=== PATIENT | male | born 1960 | race Hispanic/Latino ===

== ENCOUNTER 2018-03-14 18:22 | Observation (INO) | payer SELFPAY ==
[2018-03-14] MEDS ORDERED: FENTANYL CITR 100 MCG/2 ML ONE (19:17)
[2018-03-14] MEDS ORDERED: COLCHICINE 0.6 MG TAB ONE (19:18)
[2018-03-14] MEDS ORDERED: KETOROLAC 30 MG/ML INJ ONE (19:18)
[2018-03-14] MEDS ORDERED: ONDANSETRON 4 MG/2 ML VIAL ONE (19:18)
--- NOTE | 2018-03-14 19:35 | RAD REPORT ---
EXAM DESCRIPTION: RAD - Knee Left 3 View - 03/14/2018 7:00 pm CLINICAL HISTORY: Left knee pain FINDINGS: No fracture or dislocation is seen. The bones are osteoporotic. A moderate joint effusion is present. Vague calcification is suspected along the lateral joint line. Mild medial joint space narrowing is s een
[2018-03-14 20:00] LABS: Albumin 4.1 g/dL (3.4-5.0); Bilirubin Total 0.7 mg/dL (0.2-1.0); Protein, Total 7.9 g/dL (6.4-8.2); Uric Acid 10.7 mg/dL (3.5-7.2)
[2018-03-14 20:02] LABS: Absolute Lymphocytes (CBC) 2.4 K/uL (0.7-4.9); Absolute Monocytes 0.9 K/uL (0.1-1.3); Absolute Neutrophil 5.9 K/uL (1.8-8.0); Eosinophils % 15.4 % (0-4.4); Hematocrit 40.9 % (39.6-49.0); Lymphocytes % 21.9 % (15.3-44.8); MCH 30.5 pg (27.0-35.0); MCV 88.2 fL (80-100); MPV 9.9 fL (7.6-11.3); Monocytes % 8.5 % (3.3-12.3); RBC Red Blood Cell Count 4.64 M/uL (4.33-5.43)
--- NOTE | 2018-03-14 20:02 | RAD REPORT ---
EXAM DESCRIPTION: USEXTREMITY VENOUS UNI LTD03/14/2018 7:53 pm CLINICAL HISTORY: Left leg pain COMPARISON: Extremity Venous Uni Ltd dated 05/10/2016 FINDINGS: Left common femoral, superficial femoral, popliteal and posterior tibial veins are compre ssible and demonstrate augmentation. Doppler demonstrates good flow. IMPRESSION: No evidence of deep venous thrombosis involving the left lower extremity.
[2018-03-14 20:03] LABS: Potassium 2.7 mmol/L (3.5-5.1)
[2018-03-14] MEDS ORDERED: POTASSIUM 25 MEQ EFFERV TAB ONE (20:42)
[2018-03-14] MEDS ORDERED: NA CHLORIDE 0.9% 500 ML ONE (20:42)
[2018-03-14] MEDS ORDERED: KCL 20 MEQ/100 mL IVPB 20 MEQ/100 ML BAG IV ONE ×2 (20:43→23:28)
[2018-03-14] MEDS ORDERED: HYDROCODONE/APAP 7.5/325 MG TAB ONE (23:11)
[2018-03-14] MEDS ORDERED: ACETAMINOPHEN 500 MG TAB PO PRN (23:31)
[2018-03-14] MEDS ORDERED: MORPHINE 2 MG/ML SYR IV PRN (23:31)
[2018-03-14] MEDS ORDERED: ONDANSETRON 4 MG/2 ML VIAL IV PRN (23:31)
[2018-03-14] MEDS ORDERED: POTASSIUM 25 MEQ EFFERV TAB PO ONE (23:33)
[2018-03-14] MEDS ORDERED: GLUCAGON 1 MG/VIAL IM PRN (23:35)
[2018-03-14] MEDS ORDERED: D50W 25 GM/50 ML SYRINGE IV PRN (23:35)
--- NOTE | 2018-03-14 23:43 | ER ---
Nurse's Notes [facility] Name: Ramón Avilez Age: 57 yrs Sex: Male : 1960 Arrival Date: 03/14/2018 Time: 18:25 Bed 16 Private MD: Diagnosis: Hypokalemia;Abnormal electrocardiogram [ECG] [EKG];Pain in left knee Presentation: 03/14 18:28 Presenting complaint: Patient states: Left knee pain for the past few years. It has aj1 been slowly getting worse. He was taking tramadol for the pain, but now he is out of it. Patient states he has had X-Rays of the knee, and was told that it was gout. Transition of care: patient was not received from another setting of care. Onset of symptoms was 2015. Risk Assessment: Do you want to hurt yourself or someone else? Patient reports no desire to harm self or others. Initial Sepsis Screen: Does the patient meet any 2 criteria? No. Patient's initial sepsis screen is negative. Does the patient have a suspected source of infection? No. Patient's initial sepsis screen is negative. Care prior to arrival: None. 18:28 Method Of Arrival: Ambulatory aj1 18:28 Acuity: MENG 4 aj1 Triage Assessment: 18:31 General: Appears in no apparent distress. comfortable, Behavior is calm, cooperative, aj1 appropriate for age. Pain: Complains of pain in left knee Pain currently is 10 out of 10 on a pain scale. Neuro: Level of Consciousness is awake, alert, obeys commands. Cardiovascular: Patient's skin is warm and dry. Respiratory: Airway is patent Respiratory effort is even, unlabored, Respiratory pattern is regular, symmetrical. Historical: - Allergies: 18:31 No Known Allergies; aj1 - Home Meds: 18:31 blood pressure medication [Active]; diabetes medication [Active]; gout medication aj1 [Active]; - PMHx: 18:31 Gout; High Cholesterol; Hypertension; Diabetes - NIDDM; aj1 - Immunization history:: Flu vaccine is not up to date. - Social history:: Smoking status: Patient/guardian denies using tobacco. - Ebola Screening: : Patient denies travel to an Ebola-affected area in the 21 days before illness onset. - Family history:: not pertinent. Screenin:28 Abuse screen: Denies threats or abuse. Denies injuries from another. Nutritional iw screening: No deficits noted. Tuberculosis screening: No symptoms or risk factors identified. Fall Risk None identified. Assessment: 19:25 General: Appears in no apparent distress. comfortable, Behavior is calm, cooperative, iw appropriate for age. Pain: Complains of pain in left leg. Neuro: Level of Consciousness is awake, alert, obeys commands, Oriented to person, place, time, situation, Appropriate for age Moves all extremities. Full function Speech is normal, Facial symmetry appears normal. Cardiovascular: Capillary refill < 3 seconds Patient's skin is warm and dry. Respiratory: Airway is patent Respiratory effort is even, unlabored, Respiratory pattern is regular, symmetrical. GI: Abdomen is non-distended. : No signs and/or symptoms were reported regarding the genitourinary system. EENT: No signs and/or symptoms were reported regarding the EENT system. Derm: Skin is intact, Skin is pink, warm \T\ dry. normal, Skin temperature is warm. Musculoskeletal: Amputation of left knee. 20:00 Reassessment: Patient appears in no apparent distress at this time. Patient and/or iw family updated on plan of care and expected duration. Pain level reassessed. Patient is alert, oriented x 3, equal unlabored respirations, skin warm/dry/pink. Waiting to give second Colcryst pill. 21:17 Reassessment: Patient appears in no apparent distress at this time. Patient and/or ao family updated on plan of care and expected duration. Pain level reassessed. Patient is alert, oriented x 3, equal unlabored respirations, skin warm/dry/pink. Patient getting potassium and will be discharge after potassium is rechecked. 22:38 Reassessment: Patient appears in no apparent distress at this time. Patient and/or ao family updated on plan of care and expected duration. Pain level reassessed. Patient is alert, oriented x 3, equal unlabored respirations, skin warm/dry/pink. Waiting on potassium to be complete and recheck. 23:35 Reassessment: Patient appears in no apparent distress at this time. Patient and/or ao family updated on plan of care and expected duration. Pain level reassessed. Patient is alert, oriented x 3, equal unlabored respirations, skin warm/dry/pink. Patient to stay in the hospital per ANDERSON Rudd. 03/15 00:33 Reassessment: Patient appears in no apparent distress at this time. Patient and/or ao family updated on plan of care and expected duration. Pain level reassessed. Patient is alert, oriented x 3, equal unlabored respirations, skin warm/dry/pink. Patient to stay in the hospital. patient agree with the POC. waiting on hospital room assignment. 01:01 Reassessment: Report given to DAVID Alcaraz. Patient to be taken to his room. ao Vital Signs: 03/14 18:31 BP 173 / 102; Pulse 85; Resp 18; Temp 98.5; Pulse Ox 100% on R/A; Weight 83.91 kg (R); aj1 Height 5 ft. 5 in. (165.10 cm) (R); Pain 10/10; 19:29 BP 170 / 91; Pulse 80; Resp 16; Pulse Ox 98% ; Pain 8/10; iw 21:17 BP 162 / 82; Pulse 82; Resp 16; Pulse Ox 100% ; ao 22:38 BP 140 / 93; Pulse 61; Resp 17; Pulse Ox 97% ; Pain 0/10; ao 23:35 BP 168 / 98; Pulse 60; Resp 14; Pulse Ox 98% ; ao 09 00:33 BP 143 / 103; Pulse 74; Resp 16; Pulse Ox 96% on R/A; Pain 0/10; ao 01:01 BP 162 / 92; Pulse 67; Resp 12; Pulse Ox 97% ; Pain 0/10; ao 03/14 18:31 Body Mass Index 30.79 (83.91 kg, 165.10 cm) [facility] ED Course: 03/14 18:25 Patient arrived in ED. mr 18:30 Triage completed. aj1 18:31 Arm band placed on Patient placed in an exam room. aj1 18:33 Jp Wilks MD is Attending Physician. [facility] 18:49 Brigitte Shearer, RN is Primary Nurse. iw 18:59 X-ray completed. Portable x-ray completed in exam room. 1 19:00 Knee Left 3 View XRAY In Process Unspecified. EDMS 19:01 No provider procedures requiring assistance completed. Initial lab(s) drawn, by ma, iw sent to lab. Inserted saline lock: 20 gauge in left hand, using aseptic technique. Blood collected. 19:28 Primary Nurse role handed off by Brigitte Shearer RN eb 19:29 Patient has correct armband on for positive identification. Pulse ox on. NIBP on. iw 19:51 US Extremity Venous Unilateral Ltd In Process Unspecified. EDMS 20:00 Brigitte Shearer RN is Primary Nurse. iw 20:05 Notified Nurse Practitioner and/or Physician Slurry Man of a critical lab result(s), bb potassium of 2.7 C. Cynthia PA notified. 20:43 Jp Marie PA is PHCP. cp 21:38 Primary Nurse role handed off by Brigitte Shearer RN aj1 21:38 Octavia Pal, DAVID is Primary Nurse. aj1 23:38 Primary Nurse role handed off by Octavia Pal RN ao 23:38 Rashawn Ontiveros RN is Primary Nurse. ao 23:41 Sourav Garcia MD is Hospitalizing Provider. cp 03/15 01:01 Patient admitted, IV remains in place. ao Administered Medications: 03/14 19:23 Drug: TORadol 30 mg Route: IVP; Site: right hand; iw 23:13 Follow up: Response: No adverse reaction ao 19:23 Drug: Zofran 4 mg Route: IVP; Site: right hand; iw 21:00 Follow up: Response: No adverse reaction ao 19:24 Drug: Colcrys 1.2 mg Route: PO; iw 22:00 Follow up: Response: No adverse reaction ao 19:24 Drug: fentaNYL (PF) 25 mcg Route: IVP; Site: right forearm; iw 22:00 Follow up: Response: No adverse reaction ao 20:40 Drug: fentaNYL (PF) 25 mcg Route: IVP; Site: right hand; ao 22:00 Follow up: Response: No adverse reaction ao 20:56 Drug: Colcrys 0.6 mg Route: PO; ao 23:12 Follow up: Response: No adverse reaction ao 20:56 Drug: Potassium Chloride 20 mEq Route: IV; Rate: calculated rate; Site: right hand; ao 22:55 Follow up: IV Status: Completed infusion ao 20:56 Drug: Potassium Effervescent Tablet 50 mEq Route: PO; ao 23:00 Follow up: Response: No adverse reaction ao 21:00 Drug: NS 0.9% 1000 ml Route: IV; Rate: 100 ml/hr; Site: right hand; ao 03/15 01:24 Follow up: IV Status: Completed infusion ao 08/31 23:09 Drug: Hydrocodone-Acetaminophen (7.5 mg-325 mg) 1 tabs Route: PO; ao 03/15 00:33 Follow up: Response: No adverse reaction ao 03/14 23:31 Drug: Potassium Chloride 20 mEq Route: IV; Rate: calculated rate; Site: right hand; ao 03/15 01:24 Follow up: IV Status: Completed infusion; IV Intake: 100ml ao Intake: 01:24 IV: 100ml; Total: 100ml. ao Outcome: 03/14 23:42 Decision to Hospitalize by Provider. cp 03/15 01:00 Admitted to Med/surg accompanied by tech, room 211, with chart, Report called to shelley Alcaraz Condition: stable Instructed on discharge instructions, follow up and referral plans. 01:39 Patient left the ED. ao Signatures: Dispatcher [employer] EDOctavia Urrutia RN RN ajJp Jones MD MD cha Rivera, Maria Eusebio Treadwellha 1 Myesha Alegre RN RN bb Williams, Irene, RN RN iw Page, Corey, PA PA Rashawn Diana RN RN ao Botello, Elizabeth eb
--- NOTE | 2018-03-14 23:43 | EDPHYS ---
Physician Documentation [facility] Name: Ramón Avilez Age: 57 yrs Sex: Male : 1960 Arrival Date: 03/14/2018 Time: 18:25 Bed 16 Private MD: ED Physician Jp Wilks HPI: 03/14 18:43 This 57 yrs old Male presents to ER via Ambulatory with complaints of Knee seema Pain. 18:43 The patient presents with decreased range of motion, pain, that is acute. The seema complaints affect the posterior aspect of left knee and left knee. Context: The problem was sustained at an unknown site. Onset: The symptoms/episode began/occurred 3 day(s) ago. Modifying factors: The symptoms are alleviated by elevating leg, remaining still, the symptoms are aggravated by movement, weight bearing, bending knee. Associated signs and symptoms: The patient has no apparent associated signs or symptoms. Treatment prior to arrival includes: no previous treatment. Severity of symptoms: At their worst the symptoms were moderate. The patient has experienced similar episodes in the past, multiple times. Historical: - Allergies: 18:31 No Known Allergies; aj1 - Home Meds: 18:31 blood pressure medication [Active]; diabetes medication [Active]; gout medication aj1 [Active]; - PMHx: 18:31 Gout; High Cholesterol; Hypertension; Diabetes - NIDDM; aj1 - Immunization history:: Flu vaccine is not up to date. - Social history:: Smoking status: Patient/guardian denies using tobacco. - Ebola Screening: : Patient denies travel to an Ebola-affected area in the 21 days before illness onset. - Family history:: not pertinent. ROS: 18:43 Constitutional: Negative for fever, chills, and weight loss, Eyes: Negative for injury, seema pain, redness, and discharge, ENT: Negative for injury, pain, and discharge, Neck: Negative for injury, pain, and swelling, Cardiovascular: Negative for chest pain, palpitations, and edema, Respiratory: Negative for shortness of breath, cough, wheezing, and pleuritic chest pain, Abdomen/GI: Negative for abdominal pain, nausea, vomiting, diarrhea, and constipation, Back: Negative for injury and pain, : Negative for injury, bleeding, discharge, and swelling, Skin: Negative for injury, rash, and discoloration, Neuro: Negative for headache, weakness, numbness, tingling, and seizure, Psych: Negative for depression, anxiety, suicide ideation, homicidal ideation, and hallucinations, Allergy/Immunology: Negative for hives, rash, and allergies, Endocrine: Negative for neck swelling, polydipsia, polyuria, polyphagia, and marked weight changes, Hematologic/Lymphatic: Negative for swollen nodes, abnormal bleeding, and unusual bruising. 18:43 MS/extremity: Positive for decreased range of motion, pain, swelling, tenderness, of the posterior aspect of left knee and left knee. Exam: 18:43 Constitutional: This is a well developed, well nourished patient who is awake, alert, seema and in no acute distress. Head/Face: Normocephalic, atraumatic. Eyes: Pupils equal round and reactive to light, extra-ocular motions intact. Lids and lashes normal. Conjunctiva and sclera are non-icteric and not injected. Cornea within normal limits. Periorbital areas with no swelling, redness, or edema. ENT: Nares patent. No nasal discharge, no septal abnormalities noted. Tympanic membranes are normal and external auditory canals are clear. Oropharynx with no redness, swelling, or masses, exudates, or evidence of obstruction, uvula midline. Mucous membranes moist. Neck: Trachea midline, no thyromegaly or masses palpated, and no cervical lymphadenopathy. Supple, full range of motion without nuchal rigidity, or vertebral point tenderness. No Meningismus. Chest/axilla: Normal chest wall appearance and motion. Nontender with no deformity. No lesions are appreciated. Cardiovascular: Regular rate and rhythm with a normal S1 and S2. No gallops, murmurs, or rubs. Normal PMI, no JVD. No pulse deficits. Respiratory: Lungs have equal breath sounds bilaterally, clear to auscultation and percussion. No rales, rhonchi or wheezes noted. No increased work of breathing, no retractions or nasal flaring. Abdomen/GI: Soft, non-tender, with normal bowel sounds. No distension or tympany. No guarding or rebound. No evidence of tenderness throughout. Back: No spinal tenderness. No costovertebral tenderness. Full range of motion. Male : Normal genitalia with no discharge or lesions. Skin: Warm, dry with normal turgor. Normal color with no rashes, no lesions, and no evidence of cellulitis. Neuro: Awake and alert, GCS 15, oriented to person, place, time, and situation. Cranial nerves II-XII grossly intact. Motor strength 5/5 in all extremities. Sensory grossly intact. Cerebellar exam normal. Normal gait. Psych: Awake, alert, with orientation to person, place and time. Behavior, mood, and affect are within normal limits. 18:43 Musculoskeletal/extremity: Extremities: noted in the posterior aspect of left knee and left knee: decreased ROM, erythema, pain. 21:15 ECG was reviewed by the Attending Physician. Vital Signs: 18:31 BP 173 / 102; Pulse 85; Resp 18; Temp 98.5; Pulse Ox 100% on R/A; Weight 83.91 kg (R); aj1 Height 5 ft. 5 in. (165.10 cm) (R); Pain 10/10; 19:29 BP 170 / 91; Pulse 80; Resp 16; Pulse Ox 98% ; Pain 8/10; iw 21:17 BP 162 / 82; Pulse 82; Resp 16; Pulse Ox 100% ; ao 22:38 BP 140 / 93; Pulse 61; Resp 17; Pulse Ox 97% ; Pain 0/10; ao 23:35 BP 168 / 98; Pulse 60; Resp 14; Pulse Ox 98% ; ao 09 00:33 BP 143 / 103; Pulse 74; Resp 16; Pulse Ox 96% on R/A; Pain 0/10; ao 01:01 BP 162 / 92; Pulse 67; Resp 12; Pulse Ox 97% ; Pain 0/10; ao 03/14 18:31 Body Mass Index 30.79 (83.91 kg, 165.10 cm) [facility] MDM: 03/14 18:33 Patient medically screened. [facility] 23:25 Data reviewed: vital signs, nurses notes, lab test result(s), EKG, radiologic studies, plain films, and as a result, I will admit patient. 23:27 Physician consultation: Sourav Garcia MD was called at 23:27, was contacted at 23:27, regarding admission, to the telemetry unit. patient's condition, would like medications started, Solumedrol, colchicine. 03/14 18:42 Order name: CBC with Diff; Complete Time: 20:14 [facility] 03/14 23:19 Interpretation: Normal except: WBC 11.0; EOSINOPHIL % 15.4; EOSA 1.7. 03/14 18:42 Order name: Comprehensive Metabolic Panel; Complete Time: 20:14 [facility] 03/14 22:28 Interpretation: Normal except: K 2.7; GLUC 213; GFR 69; AST 47; CA 8.3. 03/14 18:42 Order name: Uric Acid; Complete Time: 20:14 [facility] 03/14 20:15 Interpretation: Abnormal: URIC 10.7. 03/14 21:01 Order name: Potassium: recheck after IV potassium; Complete Time: 23:19 03/14 23:19 Interpretation: Abnormal: K 3.0. 03/14 23:35 Order name: CBC with Automated Diff [facility] [place] 03/14 23:35 Order name: CBC with Automated Diff [facility] [place] 03/14 18:42 Order name: Knee Left 3 View XRAY; Complete Time: 19:49 [facility] 03/14 23:35 Order name: Comprehensive Metabolic Panel [facility] [place] 03/14 23:35 Order name: Comprehensive Metabolic Panel [facility] [place] 03/14 23:37 Order name: Magnesium [facility] [place] 03/14 23:37 Order name: Hemoglobin A1c [facility] [place] 03/14 23:37 Order name: Phosphorus [facility] [place] 03/14 23:37 Order name: T4 Free [facility] [place] 03/14 23:37 Order name: Thyroid Stimulating Hormone [facility] [place] 03/14 18:42 Order name: US Extremity Venous Unilateral Ltd; Complete Time: 20:14 [facility] 03/14 18:43 Order name: Ice pack; Complete Time: 20:31 [facility] 03/14 23:35 Order name: CONS Pharmacy Consult [facility] [place] 03/14 23:39 Order name: Consistent Carb (ADA) [address] [facility] [place] 03/14 20:15 Order name: EKG - Nurse/Tech; Complete Time: 21:17 cp EC:15 Rate is 64 beats/min. Rhythm is regular. WV interval is normal. QRS interval is normal. cp QT interval is prolonged at 458 msec. T waves are Inverted in leads III, aVF, V5, V6. Interpreted by me. Reviewed by me. Administered Medications: 19:23 Drug: TORadol 30 mg Route: IVP; Site: right hand; iw 23:13 Follow up: Response: No adverse reaction ao 19:23 Drug: Zofran 4 mg Route: IVP; Site: right hand; iw 21:00 Follow up: Response: No adverse reaction ao 19:24 Drug: Colcrys 1.2 mg Route: PO; iw 22:00 Follow up: Response: No adverse reaction ao 19:24 Drug: fentaNYL (PF) 25 mcg Route: IVP; Site: right forearm; iw 22:00 Follow up: Response: No adverse reaction ao 20:40 Drug: fentaNYL (PF) 25 mcg Route: IVP; Site: right hand; ao 22:00 Follow up: Response: No adverse reaction ao 20:56 Drug: Colcrys 0.6 mg Route: PO; ao 23:12 Follow up: Response: No adverse reaction ao 20:56 Drug: Potassium Chloride 20 mEq Route: IV; Rate: calculated rate; Site: right hand; ao 22:55 Follow up: IV Status: Completed infusion ao 20:56 Drug: Potassium Effervescent Tablet 50 mEq Route: PO; ao 23:00 Follow up: Response: No adverse reaction ao 21:00 Drug: NS 0.9% 1000 ml Route: IV; Rate: 100 ml/hr; Site: right hand; ao 03/15 01:24 Follow up: IV Status: Completed infusion ao 03/14 23:09 Drug: Hydrocodone-Acetaminophen (7.5 mg-325 mg) 1 tabs Route: PO; ao 03/15 00:33 Follow up: Response: No adverse reaction ao 03/14 23:31 Drug: Potassium Chloride 20 mEq Route: IV; Rate: calculated rate; Site: right hand; ao 03/15 01:24 Follow up: IV Status: Completed infusion; IV Intake: 100ml ao Disposition: 03/14/18 23:42 Hospitalization ordered by Sourav Garcia for Observation. Preliminary diagnosis are Hypokalemia, Abnormal electrocardiogram [ECG] [EKG], Pain in left knee. - Bed requested for Telemetry/MedSurg (Inpatient). - Status is Observation. ao - Condition is Stable. - Problem is new. - Symptoms have improved. UTI on Admission? No Addendum: 03/18/2018 08:37 Co-signature as Attending Physician, Jp Wilks MD I agree with the assessment and c knott plan of care. Signatures: Dispatcher [employer] Octavia Uriostegui RN RN ajKaren Smith RN RN mw Anderson, Corey, MD MD cha Williams, Irene, RN RN iw Page Jp, PA PA cp Ontiveros, Rashawn, RN RN ao Corrections: (The following items were deleted from the chart) 03/14 23:19 20:15 Normal except: WBC 11.0; EOSINOPHIL % 15.4. cp cp 23:39 23:35 Regular ordered. EDMS EDMS 03/15 00:32 03/14 18:59 Crutches ordered. seema ao 03/15 00:38 03/14 23:42 Hospitalization Ordered by Sourav Garcia MD for Observation. Preliminary mw diagnosis is Hypokalemia; Abnormal electrocardiogram [ECG] [EKG]; Pain in left knee. Bed requested for Telemetry/MedSurg (Inpatient). Status is Observation. Condition is Stable. Problem is new. Symptoms have improved. UTI on Admission? No. cp 03/15 01:39 00:38 03/14/2018 23:42 Hospitalization Ordered by Sourav Garcia MD for Observation. ao Preliminary diagnosis is Hypokalemia; Abnormal electrocardiogram [ECG] [EKG]; Pain in left knee. Bed requested for Telemetry/MedSurg (Inpatient). Status is Observation. Condition is Stable. Problem is new. Symptoms have improved. UTI on Admission? No. mw
[2018-03-14] MEDS: NA CHLORIDE 0.9% 1,000 ML IV SCH (23:45)
[2018-03-14] MEDS: COLCHICINE 0.6 MG TAB PO SCH (23:45)
[2018-03-15] MEDS ORDERED: NA CHLORIDE 0.9% 1,000 ML ONE (00:32)
[2018-03-15] MEDS ORDERED: METHYLPREDNISOLONE 125 MG INJ ONE (01:40)
[2018-03-15 02:07] VITALS: BMI 29.9
[2018-03-15] MEDS: COLCHICINE 0.6 MG TAB PO SCH ×2 (05:05→11:54)
[2018-03-15] MEDS: POTASSIUM 25 MEQ EFFERV TAB PO SCH ×4 (05:05→11:54)
[2018-03-15] MEDS: METHYLPREDNISOLONE 125 MG INJ IV SCH ×3 (05:33→12:48)
[2018-03-15] MEDS ORDERED: HYDRALAZINE HCL 20 MG/ML VIAL IV ONE (05:58)
[2018-03-15 06:01] LABS: Absolute Lymphocytes (CBC) 1.5 K/uL (0.7-4.9); Absolute Monocytes 0.2 K/uL (0.1-1.3); Absolute Neutrophil 5.2 K/uL (1.8-8.0); Basophils % 1.2 % (0-1.3); Hematocrit 39.8 % (39.6-49.0); Lymphocytes % 19.1 % (15.3-44.8); MCH 30.8 pg (27.0-35.0); MCV 87.5 fL (80-100); MPV 9.7 fL (7.6-11.3); Monocytes % 2.9 % (3.3-12.3); RBC Red Blood Cell Count 4.55 M/uL (4.33-5.43)
[2018-03-15 06:08] LABS: Urine Appearance CLEAR; Urine Bilirubin NEGATIVE (NEG); Urine Blood NEGATIVE (NEG); Urine Color YELLOW; Urine Glucose TRACE (NEG); Urine Protein TRACE (NEG)
[2018-03-15 06:09] LABS: Urine Microscopic Reflex NO UMIC
[2018-03-15] MEDS: NA CHLORIDE 0.9% 1,000 ML IV SCH ×2 (06:34→13:05)
[2018-03-15 06:45] LABS: Albumin 3.7 g/dL (3.4-5.0); Bilirubin Total 0.6 mg/dL (0.2-1.0); Protein, Total 7.2 g/dL (6.4-8.2)
[2018-03-15 07:11] LABS: Magnesium 1.6 mg/dL (1.8-2.4); Thyroid Stimulating Hormone 0.7 uIU/mL (0.360-3.740)
[2018-03-15 07:17] LABS: Potassium 2.8 mmol/L (3.5-5.1)
--- NOTE | 2018-03-15 07:36 | P.HP ---
Certification for Inpatient Patient admitted to: Observation With expected LOS: <2 Midnights Patient will require the following post-hospital care: None Practitioner: I am a practitioner with admitting privileges, knowledge of patient current condition, hospital course, and medical plan of care. Services: Services provided to patient in accordance with Admission requirements found in Title 42 Section 412.3 of the Code of Federal Regulations Patient History Date of Service: 03/14/18 Reason for admission: Left knee pain History of Present Illness: patient is a 57-year-old gentleman who came into the emergency room with pain in his left. Patient was found have inflammation of the left knee. Patient has a history of gout and he is on diuretics. 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 Patient will be treated with IV steroids along with the colchicine. He should improve. If he worsens then we may need to cultures. He should hold off on hydrochlorothiazide for now. Will recommend outpatient follow-up. Allergies No Known Allergies Allergy (Verified 03/15/18 02:06) Home Medications: Allopurinol 1 tab PO DAILY 03/15/18 Colchicine 1 tab PO DAILY 03/15/18 Ibuprofen 1 tab PO Q8H PRN 03/15/18 Lisinopril 1 tab PO DAILY 03/15/18 Metformin HCl 1 tab PO DAILY 03/15/18 hydrOXYzine HCl [Atarax] 1 tab PO BEDTIME PRN 03/15/18 hydroCHLOROthiazide [Hydrochlorothiazide] 1 tab PO DAILY 03/15/18 - Past Medical/Surgical History Has patient received pneumonia vaccine in the past: No Diabetic: Yes -: HTN -: NIDDM -: Hypokalemia -: Gout both knees; feet -: High cholesterol -: Anxiety -: Right ankle surgery - Family History parents History Unknown: Yes uncle Medical History: Cancer Notes: unable to recall the specific cancer - Social History Smoking Status: Former smoker Alcohol use: No CD- Drugs: No Caffeine use: Yes Place of Residence: Home Review of Systems 10-point ROS is otherwise unremarkable Physical Examination - Vital Signs Temperature: 97.9 F Blood Pressure: 140/90 Pulse: 60 Respirations: 16 Pulse Ox (%): 98 - Physical Exam General: Alert, In no apparent distress, Oriented x3 HEENT: Atraumatic, PERRLA, Mucous membr. moist/pink, EOMI, Sclerae nonicteric Neck: Supple, 2+ carotid pulse no bruit, No LAD, Without JVD or thyroid abnormality Respiratory: Clear to auscultation bilaterally, Normal air movement Cardiovascular: Regular rate/rhythm, Normal S1 S2 Gastrointestinal: Normal bowel sounds, Soft and benign, Non-distended, No tenderness Musculoskeletal: No clubbing, Swelling, Tenderness Integumentary: No rashes Neurological: Normal gait, Normal speech, Normal strength at 5/5 x4 extr, Normal tone, Sensation intact, Cranial nerves 3-12 intact, Normal affect Lymphatics: No axilla or inguinal lymphadenopathy - Studies Laboratory Data (last 24 hrs) 03/14/18 22:48: Potassium 3.0 L 03/14/18 19:00: Sodium 141, Potassium 2.7 L*, BUN 15, Creatinine 1.10, Glucose 213 H, Uric Acid 10.7 H, Total Bilirubin 0.7, AST 47 H, ALT 50, Alkaline Phosphatase 77 03/14/18 19:00: WBC 11.0 H, Hgb 14.1, Hct 40.9, Plt Count 209 Assessment & Plan - Problems (Diagnosis) (1) Acute gout of left knee Current Visit: Yes Status: Acute (2) Hypokalemia Current Visit: Yes Status: Acute (3) HTN (hypertension) Current Visit: Yes Status: Acute - Plan Plan: 1. Start IV steroids and will give oral colchicine. 2. Pain control as needed 3. Supplement potassium 4. Strict blood pressure control 5. GI and DVT prophylaxis Discharge Plan: Home Plan to discharge in: 24 Hours - Advance Directives Does patient have a Living Will: No Does patient have a Durable POA for Healthcare: No - Code Status/Comfort Care Code Status Assessed: Yes Code Status: Full Code Critical Care: No Time Spent Managing PTS Care (In Minutes): 50
[2018-03-15] MEDS ORDERED: POTASS/SODIUM PHOSPHATE 1 PKT POWD.PACK PO ONE (08:16)
[2018-03-15] MEDS ORDERED: ALLOPURINOL 300 MG TAB PO SCH (09:00)
[2018-03-15] MEDS ORDERED: MAGNESIUM 50% 3 GM in NA CHLORIDE 0.9% 100 ML IV ONE (10:00)
[2018-03-15] MEDS: INSULIN -REGULAR HUMAN 50 UNIT/0.5 ML ML SQ SCH ×2 (10:38→11:30)
[2018-03-15 11:33] VITALS: O2SAT 96
[2018-03-15 12:19] VITALS: BP 149/91; TEMP 97.6
[2018-03-15 13:30] LABS: Magnesium 3.2 mg/dL (1.8-2.4); Potassium 3.6 mmol/L (3.5-5.1)
[2018-03-15] MEDS ORDERED: glipiZIDE 5 MG TAB PO ONE (23:38)
--- NOTE | 2018-03-16 00:57 | P.DS ---
Discharge Date: 03/15/18 Disposition: ROUTINE DISCHARGE Discharge Condition: GOOD Reason for Admission: Left knee pain - Problems (1) Acute gout of left knee Status: Acute (2) Hypokalemia Status: Acute (3) HTN (hypertension) Status: Acute Brief History of Present Illness: patient is a 57-year-old gentleman who came into the emergency room with pain in his left. Patient was found have inflammation of the left knee. Patient has a history of gout and he is on diuretics. 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 Patient will be treated with IV steroids along with the colchicine. He should improve. If he worsens then we may need to cultures. He should hold off on hydrochlorothiazide for now. Will recommend outpatient follow-up. Hospital Course: Patient clinically felt better after IV steroids. Patient most likely had gouty arthropathy. Patient's electrolytes were still abnormal so we supplemented them and these returned back to baseline. Patient is clinically doing better and is stable for discharge home with close outpatient follow-up with his primary care provider. I adjusted his medications and he needs to have lab workup done in 1 week to recheck his electrolytes. He needs to take his allopurinol as prescribed. At this time he is stable for discharge home. Vital Signs/Physical Exam: Temp Pulse Resp BP Pulse Ox 97.6 F 77 16 149/91 H 97 03/15/18 12:00 03/15/18 12:00 03/15/18 12:00 03/15/18 12:00 03/15/18 12:00 General: Alert, In no apparent distress, Oriented x3 Laboratory Data at Discharge: WBC 8.0 K/uL (4.3-10.9) D 03/15/18 05:13 Hgb 14.0 g/dL (13.6-17.9) 03/15/18 05:13 Hct 39.8 % (39.6-49.0) 03/15/18 05:13 Plt Count 189 K/uL (152-406) 03/15/18 05:13 Sodium 138 mmol/L (136-145) 03/15/18 13:02 Potassium 3.6 mmol/L (3.5-5.1) 03/15/18 13:02 BUN 14 mg/dL (7-18) 03/15/18 13:02 Creatinine 1.00 mg/dL (0.55-1.3) 03/15/18 13:02 Glucose 293 mg/dL (74-106) H 03/15/18 13:02 Uric Acid 10.7 mg/dL (3.5-7.2) H 03/14/18 19:00 Phosphorus 1.0 mg/dL (2.5-4.9) L 03/15/18 05:56 Magnesium 3.2 mg/dL (1.8-2.4) H D 03/15/18 13:02 Total Bilirubin 0.6 mg/dL (0.2-1.0) 03/15/18 05:13 AST 27 U/L (15-37) 03/15/18 05:13 ALT 41 U/L (12-78) 03/15/18 05:13 Alkaline Phosphatase 79 U/L (45-117) 03/15/18 05:13 Home Medications: Allopurinol 1 tab PO DAILY 03/15/18 Colchicine 1 tab PO DAILY 03/15/18 Lisinopril 1 tab PO DAILY 03/15/18 Metformin HCl 1 tab PO DAILY 03/15/18 Methylprednisolone [Medrol dosepack] 4 mg PO DIRECTED #1 julieta 03/15/18 Naproxen [Naprosyn] 500 mg PO DAILY #20 tablet 03/15/18 Omeprazole Magnesium [Prilosec Otc] 20 mg PO DAILY #30 tablet. 03/15/18 Tramadol HCl [Ultram] 50 mg PO Q6HP PRN #60 tablet 03/15/18 hydrOXYzine HCl [Atarax] 1 tab PO BEDTIME PRN 03/15/18 New Medications: Methylprednisolone [Medrol dosepack] 4 mg PO DIRECTED #1 julieta Naproxen [Naprosyn] 500 mg PO DAILY #20 tablet Omeprazole Magnesium [Prilosec Otc] 20 mg PO DAILY #30 tablet. Tramadol HCl [Ultram] 50 mg PO Q6HP PRN #60 tablet PRN Reason: Pain Patient Discharge Instructions: OK TO DC IV AND DC HOME. FOLLOW-UP WITH PRIMARY CARE PROVIDER IN 1-2 WEEKS. FOLLOW-UP WITH CARDIOLOGY IN 1-2 WEEKS. RETURN TO THE ER IF symptoms worsen. CALL or TEXT DR. NAIR AT [phone] IF ANY QUESTIONS REGARDING HOSPITAL STAY. PLEASE CALL THE FLOOR AT [phone] IF ANY MEDICATION OR NURSING QUESTIONS. Diet: Regular Activity: Fall precautions Followup: Rajendra Marin MD [ACTIVE - CAN ADMIT] - Juanito Keyes MD [ACTIVE - CAN ADMIT] - Time spent managing pt's care (in minutes): 20
--- NOTE | 2018-03-17 07:58 | EKG ---
Test Date: 2018-03-14 Test Time: 21:11:12 Appeals Assistant: PRISCILLA MEASUREMENT RESULTS: Intervals: Rate: 64 WV: 138 QRSD: 84 QT: 458 QTc: 472 [place]: P: 61 WV: 138 QRS: 11 T: -42 INTERPRETIVE STATEMENTS: Normal sinus rhythm with sinus arrhythmia Moderate voltage criteria for LVH, may be normal variant T wave abnormality, consider inferolateral ischemia Prolonged QT Abnormal ECG Compared to ECG 05/05/2014 19:42:36 Possible ischemia now present T-wave abnormality still present Electronically Signed On 03-17-18 07:55:32 CDT by Rajendra Marin
== END 2018-03-15 16:00 | disposition home or self-care (01) ==
LOC: ER 18:22 → ERHOLD 23:32 → 2ND 03-15 01:04
PROVIDERS: ADMIT Hospitalist; ATTEND Hospitalist
DX: M10.9 Gout, unspecified (principal); E87.6 Hypokalemia; I10 Essential (primary) hypertension; E11.9 Type 2 diabetes mellitus without complications
CPT/HCPCS: 36415; 80048; 80053; 81003; 82962; 83036; 83735; 84100; 84132; 84439; 84443; 84550; 85025; 93005; 93971; 99285; G0378; J0360; J2270; J2405; J2930; J3010; J3475; J7030

== ENCOUNTER 2018-03-28 14:16 | Emergency (ER) | payer SELFPAY ==
[2018-03-28 16:23] LABS: Absolute Lymphocytes (CBC) 2.2 K/uL (0.7-4.9); Absolute Monocytes 0.8 K/uL (0.1-1.3); Absolute Neutrophil 5.3 K/uL (1.8-8.0); Eosinophils % 18.4 % (0-4.4); Hematocrit 40.6 % (39.6-49.0); Lymphocytes % 21.4 % (15.3-44.8); MCH 31.1 pg (27.0-35.0); MCV 88.7 fL (80-100); MPV 9.4 fL (7.6-11.3); Monocytes % 7.7 % (3.3-12.3); RBC Red Blood Cell Count 4.58 M/uL (4.33-5.43)
[2018-03-28] MEDS ORDERED: HYDROCODONE/APAP 5/325 MG TAB ONE (16:36)
[2018-03-28 16:40] LABS: Albumin 3.9 g/dL (3.4-5.0); Bilirubin Total 0.4 mg/dL (0.2-1.0); Potassium 3.1 mmol/L (3.5-5.1); Protein, Total 7.7 g/dL (6.4-8.2); Uric Acid 10.8 mg/dL (3.5-7.2)
[2018-03-28] MEDS ORDERED: POTASSIUM 25 MEQ EFFERV TAB ONE (16:53)
--- NOTE | 2018-03-28 16:54 | RAD REPORT ---
EXAM DESCRIPTION: USExtremnaresh Venous Uni Ltd03/28/2018 4:43 pm CLINICAL HISTORY: left leg pain and swelling. COMPARISON: February 2018 FINDINGS: Left common femoral, superficial femoral, popliteal and posterior tibial veins are compre ssible and demonstrate augmentation. Doppler demonstrates good flow. IMPRESSION: No evidence of deep venous thrombosis involving the left lower extremity.
[2018-03-28 17:37] LABS: Blood Morphology Comment NOT SEEN (NOT SEEN); Platelet Estimate ADEQ; Urine White Blood Cell Casts OK
--- NOTE | 2018-03-28 17:39 | ER ---
Nurse's Notes [facility] Name: Ramón Avilez Age: 57 yrs Sex: Male : 1960 Arrival Date: 03/28/2018 Time: 14:17 Bed 2 Private MD: Diagnosis: Pain in left knee Presentation: 03/28 14:38 Presenting complaint: Patient states: Left knee pain for years that has gotten worse 2 aj weeks ago. Patient DX with gout. Transition of care: patient was not received from another setting of care. Onset of symptoms was March 15, 2018. Risk Assessment: Do you want to hurt yourself or someone else? Patient reports no desire to harm self or others. Initial Sepsis Screen: Does the patient meet any 2 criteria? No. Patient's initial sepsis screen is negative. Does the patient have a suspected source of infection? No. Patient's initial sepsis screen is negative. Care prior to arrival: None. 14:38 Method Of Arrival: Ambulatory aj 14:38 Acuity: MENG 4 aj Triage Assessment: 14:40 General: Appears in no apparent distress. uncomfortable, Behavior is calm, cooperative, aj appropriate for age. Pain: Complains of pain in left knee. Neuro: Level of Consciousness is awake, alert, obeys commands, Oriented to person, place, time, situation, Appropriate for age. Respiratory: Airway is patent Respiratory effort is even, unlabored, Respiratory pattern is regular, symmetrical. Derm: Skin is intact, is healthy with good turgor, Skin is pink, warm \T\ dry. normal. Musculoskeletal: Reports pain in left knee. Historical: - Allergies: 14:40 No Known Allergies; aj - Home Meds: 14:40 BLOOD PRESSURE MEDICATION [Active]; diabetes medication [Active]; gout medication aj [Active]; - PMHx: 14:40 Diabetes - NIDDM; Gout; High Cholesterol; Hypertension; aj - PSHx: 14:40 Right ankle; aj - Immunization history:: Adult Immunizations up to date. - Social history:: Smoking status: Patient/guardian denies using tobacco. - Ebola Screening: : Patient negative for fever greater than or equal to 101.5 degrees Fahrenheit, and additional compatible Ebola Virus Disease symptoms Patient denies exposure to infectious person Patient denies travel to an Ebola-affected area in the 21 days before illness onset No symptoms or risks identified at this time. Screenin:21 Abuse screen: Denies threats or abuse. Denies injuries from another. Nutritional ch screening: No deficits noted. Tuberculosis screening: No symptoms or risk factors identified. Fall Risk None identified. Assessment: 15:21 General: Appears in no apparent distress. comfortable, Behavior is calm, cooperative, ch appropriate for age. Pain: Complains of pain in right knee and left knee Pain currently is 8 out of 10 on a pain scale. Pain began gradually, weeks ago. Neuro: No deficits noted. Cardiovascular: Heart tones S1 S2 present. Respiratory: Airway is patent Respiratory effort is even, unlabored, Breath sounds are clear bilaterally. GI: Abdomen is round non-distended, Bowel sounds present X 4 quads. : No signs and/or symptoms were reported regarding the genitourinary system. Derm: Skin is pink, warm \T\ dry. Musculoskeletal: Swelling present in left leg and left knee slight Tenderness present in left leg Reports Pain is 8 out of 10 on a pain scale. 16:18 Reassessment: Patient appears in no apparent distress at this time. No changes from previously documented assessment. Patient and/or family updated on plan of care and expected duration. Pain level reassessed. Patient is alert, oriented x 3, equal unlabored respirations, skin warm/dry/pink. 16:20 Reassessment: Patient appears in no apparent distress at this time. ch 17:21 Reassessment: Patient appears in no apparent distress at this time. Patient and/or ch family updated on plan of care and expected duration. Pain level reassessed. Patient is alert, oriented x 3, equal unlabored respirations, skin warm/dry/pink. Patient states feeling better. Patient states symptoms have improved. 17:55 Reassessment: Patient appears in no apparent distress at this time. Patient and/or ch family updated on plan of care and expected duration. Pain level reassessed. Patient is alert, oriented x 3, equal unlabored respirations, skin warm/dry/pink. Patient states feeling better. Patient states symptoms have improved. Vital Signs: 14:40 BP 138 / 88; Pulse 78; Resp 15; Temp 98.1; Pulse Ox 97% on R/A; Weight 80.74 kg; Height aj 5 ft. 5 in. (165.10 cm); 17:21 BP 124 / 78; Pulse 84; Resp 16; Pulse Ox 97% on R/A; Pain 8/10; ch 17:55 BP 120 / 82; Pulse 78; Resp 14; Temp 98.9; Pulse Ox 99% on R/A; Pain 2/10; ch 14:40 Body Mass Index 29.62 (80.74 kg, 165.10 cm) aj ED Course: 14:17 Patient arrived in ED. mr 14:39 Triage completed. aj 14:40 Arm band placed on left wrist. Patient placed in waiting room, Patient notified of wait aj time. 15:21 Rosemarie Peterson, RN is Primary Nurse. ch 15:21 No apparent distress. Resting quietly. ch 15:21 Patient has correct armband on for positive identification. Placed in gown. Bed in low ch position. Call light in reach. Side rails up X 1. Warm blanket given. 15:21 No provider procedures requiring assistance completed. ch 15:29 Zack Conner PA is PHCP. [facility] 15:29 Jp Wilks MD is Attending Physician. jm 16:11 Initial lab(s) drawn, by wy, sent to lab. Inserted saline lock: 22 gauge in right jb1 antecubital area, using aseptic technique. Blood collected. 16:36 Ultrasound completed. Patient tolerated well. sg3 16:42 US Extremity Venous Unilateral Ltd In Process Unspecified. EDMS 17:38 Rui Mabry MD is Referral Physician. jmm 17:55 IV discontinued, intact, bleeding controlled, No redness/swelling at site. Pressure ch dressing applied. Administered Medications: 16:10 Drug: Ketorolac 30 mg Route: IVP; Site: right antecubital; ch 16:35 Follow up: Response: No adverse reaction; No change in condition ch 16:35 Drug: [place] 5 mg-325 mg 1 tabs Route: PO; ch 17:21 Follow up: Response: No adverse reaction; Marked relief of symptoms ch 17:00 Drug: K-Lyte Effervescent Tablet 50 mEq Route: PO; ch 17:21 Follow up: Response: No adverse reaction ch Outcome: 17:39 Discharge ordered by . jm 17:50 Discharged to home ambulatory, with family. 17:50 Condition: stable 17:50 Discharge instructions given to patient, Instructed on discharge instructions, follow up and referral plans. medication usage, Demonstrated understanding of instructions, follow-up care, medications, Prescriptions given X 2. 17:57 Patient left the ED. Signatures: Dispatcher [employer] EDSolitario Quintero [email or web address] Rosemarie Peterson RN RN ch Myers, Amanda, RN RN aj Mickail, Joel, PA PA jmm Rivera, Maria mr Arturo, Nataliya 3
--- NOTE | 2018-03-28 17:39 | EDPHYS ---
Physician Documentation [facility] Name: Ramón Avilez Age: 57 yrs Sex: Male : 1960 Arrival Date: 03/28/2018 Time: 14:17 Bed 2 Private MD: ED Physician Jp Wilks HPI: 03/28 15:33 This 57 yrs old Male presents to ER via Ambulatory with complaints of Knee jmm swelling. 15:33 The patient presents with pain, that is chronic. Onset: The symptoms/episode jmm began/occurred gradually, 1 week(s) ago. Modifying factors: The symptoms are alleviated by elevating leg, the symptoms are aggravated by weight bearing. Associated signs and symptoms: Pertinent negatives fever. This is a 57 year old male with a history of DM, Gout, HLP, HTN that presents to the ED with left knee pain worsening over the past week. Patient states the knee pain initially developed 5 months ago with intermittent episodes of pain. Patient denies fever. Complains of pain which radiates from the knee down the left lower leg. . Historical: - Allergies: 14:40 No Known Allergies; aj - Home Meds: 14:40 BLOOD PRESSURE MEDICATION [Active]; diabetes medication [Active]; gout medication aj [Active]; - PMHx: 14:40 Diabetes - NIDDM; Gout; High Cholesterol; Hypertension; aj - PSHx: 14:40 Right ankle; aj - Immunization history:: Adult Immunizations up to date. - Social history:: Smoking status: Patient/guardian denies using tobacco. - Ebola Screening: : Patient negative for fever greater than or equal to 101.5 degrees Fahrenheit, and additional compatible Ebola Virus Disease symptoms Patient denies exposure to infectious person Patient denies travel to an Ebola-affected area in the 21 days before illness onset No symptoms or risks identified at this time. ROS: 15:33 Constitutional: Negative for fever, chills, and weight loss, Cardiovascular: Negative jmm for chest pain, palpitations, and edema, Respiratory: Negative for shortness of breath, cough, wheezing, and pleuritic chest pain, Abdomen/GI: Negative for abdominal pain, nausea, vomiting, diarrhea, and constipation. 15:33 Skin: Negative for injury, rash, and discoloration, Neuro: Negative for headache, weakness, numbness, tingling, and seizure. 15:33 MS/extremity: Positive for pain. 15:33 All other systems are negative. Exam: 15:33 Head/Face: atraumatic. Chest/axilla: Normal chest wall appearance and motion. [facility] Cardiovascular: Regular rate and rhythm. No edema appreciated Respiratory: Normal respirations, no respiratory distress appreciated 15:33 Constitutional: The patient appears in no acute distress, alert, awake, uncomfortable. 15:33 Musculoskeletal/extremity: FROM appreciated to the left knee, increased warmth noted, mild swelling, no erythema appreciated. 15:33 Skin: Appearance: Color: normal in color. 15:33 Neuro: Orientation: is normal, Mentation: is normal, Memory: is normal, Gait: is steady. 15:33 Psych: Behavior/mood is pleasant, cooperative. Vital Signs: 14:40 BP 138 / 88; Pulse 78; Resp 15; Temp 98.1; Pulse Ox 97% on R/A; Weight 80.74 kg; Height aj 5 ft. 5 in. (165.10 cm); 17:21 BP 124 / 78; Pulse 84; Resp 16; Pulse Ox 97% on R/A; Pain 8/10; ch 17:55 BP 120 / 82; Pulse 78; Resp 14; Temp 98.9; Pulse Ox 99% on R/A; Pain 2/10; ch 14:40 Body Mass Index 29.62 (80.74 kg, 165.10 cm) MDM: 15:33 Patient medically screened. [facility] 15:56 Data reviewed: vital signs, nurses notes. [facility] 17:38 Data reviewed: lab test result(s), radiologic studies, ultrasound. Counseling: I had a [facility] detailed discussion with the patient and/or guardian regarding: the historical points, exam findings, and any diagnostic results supporting the discharge/admit diagnosis, radiology results, the need for outpatient follow up, to return to the emergency department if symptoms worsen or persist or if there are any questions or concerns that arise at home. Response to treatment: the patient's symptoms have markedly improved after treatment. 03/28 15:45 Order name: CBC with Diff; Complete Time: 17:37 [facility] 03/28 15:45 Order name: CMP; Complete Time: 16:42 [facility] 03/28 15:45 Order name: Uric Acid; Complete Time: 16:42 [facility] 03/28 16:27 Order name: CBC Smear Scan; Complete Time: 17:37 [facility] 03/28 15:45 Order name: Saline Lock; Complete Time: 16:11 [facility] 03/28 15:45 Order name: US Extremity Venous Unilateral Ltd; Complete Time: 17:08 [facility] Administered Medications: 16:10 Drug: Ketorolac 30 mg Route: IVP; Site: right antecubital; ch 16:35 Follow up: Response: No adverse reaction; No change in condition ch 16:35 Drug: [place] 5 mg-325 mg 1 tabs Route: PO; ch 17:21 Follow up: Response: No adverse reaction; Marked relief of symptoms ch 17:00 Drug: K-Lyte Effervescent Tablet 50 mEq Route: PO; ch 17:21 Follow up: Response: No adverse reaction ch Disposition: 03/28/18 17:39 Discharged to Home. Impression: Pain in left knee. - Condition is Stable. - Discharge Instructions: Knee Pain. - Prescriptions for Naprosyn 500 mg Oral Tablet - take 1 tablet by ORAL route 2 times per day take with food; 30 tablet. Ultracet 37.5- 325 mg Oral Tablet - take 1 tablet by ORAL route every 6 hours - for up to 5 days; do not exceed 8 tablets per day.; 12 tablet. - Medication Reconciliation Form, Thank You Letter, Antibiotic Education, Prescription Opioid Use form. - Follow up: Rui Mabry MD; When: As needed; Reason: Recheck today's complaints, Continuance of care, Re-evaluation by your physician. Addendum: 03/31/2018 07:07 Co-signature as Attending Physician, Jp Wilks MD I agree with the assessment and c knott plan of care. Signatures: Dispatcher [employer] [facility] Rosemarie Peterson, Susanna Dumas RN, ch, RN RN aj Anderson, Corey, MD MD cha Mickail, Joel, PA PA [facility] Corrections: (The following items were deleted from the chart) 03/28 16:24 16:07 URINE DIPSTICK--ANCILLARY+U.LAB.BRZ ordered. [facility] EDMS 16:24 16:07 URINE --ANCILLARY+UC.LAB.BRZ ordered. [facility] EDMS 17:57 17:39 03/28/2018 17:39 Discharged to Home. Impression: Pain in left knee. Condition is ch Stable. Forms are Medication Reconciliation Form, Thank You Letter, Antibiotic Education, Prescription Opioid Use. Follow up: Rui Mabry; When: As needed; Reason: Recheck today's complaints, Continuance of care, Re-evaluation by your physician. olesya
[2018-03-28 18:05] VITALS: BP 120/82; TEMP 98.9; O2SAT 99
== END 2018-03-28 17:57 | disposition home or self-care (01) ==
LOC: ER 14:16
DX: M25.562 Pain in left knee (principal); I10 Essential (primary) hypertension; E11.9 Type 2 diabetes mellitus without complications; E78.00 Pure hypercholesterolemia, unspecified
CPT/HCPCS: 36415; 80053; 84550; 85025; 93971; 96374; 99284

== ENCOUNTER 2019-01-26 21:41 | Emergency (ER) | payer SELFPAY ==
--- OUTSIDE RECORDS SUMMARY | 2019-01-26 21:43 | XMS REPORT ---
:1960 [facility] Address [address] [place] [address] Dr. Richardson [address] [place] [id number] Care Team Providers Name Role Phone Unavailable Unavailable Unavailable Problems This patient has no known problems. Allergies, Adverse Reactions, Alerts This patient has no known allergies or adverse reactions. Medications This patient has no known medications.
--- NOTE | 2019-01-26 22:29 | ER ---
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 Transition of care: patient was not received from another setting of care. Onset of symptoms was January 26, 2019. Risk Assessment: Do you want to hurt yourself or someone else? Patient reports no desire to harm self or others. Initial Sepsis Screen: Does the patient meet any 2 criteria? No. Patient's initial sepsis screen is negative. Does the patient have a suspected source of infection? No. Patient's initial sepsis screen is negative. Care prior to arrival: None. 21:58 Method Of Arrival: Ambulatory lp1 21:58 Acuity: MENG 4 lp1 Historical: - Allergies: 22:03 No Known Allergies; lp1 - Home Meds: 22:03 lisinopril 40 mg Oral tab 1 tab once daily [Active]; amlodipine 10 mg tab 1 tab once lp1 daily [Active]; allopurinol 100 mg Oral tab 4 tabs once daily [Active]; - PMHx: 22:03 Diabetes - NIDDM; Gout; High Cholesterol; Hypertension; lp1 - PSHx: 22:03 None; lp1 - Immunization history:: Adult Immunizations up to date. - Social history:: Smoking status: Patient/guardian denies using tobacco. - Ebola Screening: : No symptoms or risks identified at this time. Screenin:03 Abuse screen: Denies threats or abuse. Denies injuries from another. Nutritional lp1 screening: No deficits noted. Tuberculosis screening: No symptoms or risk factors identified. Fall Risk None identified. Assessment: 22:44 Reassessment: Patient and/or family updated on plan of care and expected duration. Pain ea level reassessed. Patient is alert, oriented x 3, equal unlabored respirations, skin warm/dry/pink. Discharge instruction given to patient. Verbalized the understanding of instruction. No s/s of pain or discomfort noted at this time. Pt left ED ambulatory, pt tolerating well. Vital Signs: 22:01 BP 145 / 92; Pulse 80; Resp 18; Temp 97.9(O); Pulse Ox 98% on R/A; Weight 82.55 kg; lp1 Height 5 ft. 5 in. (165.10 cm); Pain 0/10; 22:01 Body Mass Index 30.29 (82.55 kg, 165.10 cm) lp1 ED Course: 21:46 Patient arrived in ED. es 21:49 Gui Guillen MD is Attending Physician. ps1 22:01 Triage completed. lp1 22:02 Arm band placed on left wrist. lp1 22:03 Patient has correct armband on for positive identification. lp1 22:40 No provider procedures requiring assistance completed. ea 22:46 Patient did not have IV access during this emergency room visit. ea Administered Medications: No medications were administered Outcome: 22:28 Discharge ordered by . ps1 22:44 Discharged to home ambulatory. ea 22:44 Condition: stable 22:44 Discharge instructions given to patient, Instructed on discharge instructions, Demonstrated understanding of instructions, follow-up care, medications, Prescriptions given X 1. 22:46 Patient left the ED. ea Signatures: Caitlyn Martinez Laura RN DAVID lp1 Maricel Tam RN RN ea Singer, Phillip, MD MD ps1
--- NOTE | 2019-01-26 22:29 | EDPHYS ---
Physician Documentation [facility] Name: Ramón Avilez Age: 58 yrs Sex: Male : 1960 Arrival Date: 01/26/2019 Time: 21:46 Bed 5 Private MD: ED Physician Gui Guillen HPI: 01/26 22:17 This 58 yrs old Male presents to ER via Ambulatory with complaints of Leg ps1 Swelling bilateral. 22:17 patient was recently started on amlodipine a week ago. He additionally has a rash that ps1 is on his chest. He has no chest pain, tightness, pressure, calf pain, or risk factors for DVT. Hx of Gout and has intermittent knee. pain. . Historical: - Allergies: 22:03 No Known Allergies; lp1 - Home Meds: 22:03 lisinopril 40 mg Oral tab 1 tab once daily [Active]; amlodipine 10 mg tab 1 tab once lp1 daily [Active]; allopurinol 100 mg Oral tab 4 tabs once daily [Active]; - PMHx: 22:03 Diabetes - NIDDM; Gout; High Cholesterol; Hypertension; lp1 - PSHx: 22:03 None; lp1 - Immunization history:: Adult Immunizations up to date. - Social history:: Smoking status: Patient/guardian denies using tobacco. - Ebola Screening: : No symptoms or risks identified at this time. ROS: 22:17 Constitutional: Negative for fever, chills, and weight loss, Eyes: Negative for injury, ps1 pain, redness, and discharge, Cardiovascular: Negative for chest pain, palpitations, and edema, Respiratory: Negative for shortness of breath, cough, wheezing, and pleuritic chest pain, Abdomen/GI: Negative for abdominal pain, nausea, vomiting, diarrhea, and constipation, MS/Extremity: Negative for injury and deformity, Neuro: Negative for headache, weakness, numbness, tingling, and seizure. 22:17 Skin: Positive for rash, of the chest, bilateral lower extremity edema. 1+. Exam: 22:17 Constitutional: This is a well developed, well nourished patient who is awake, alert, ps1 and in no acute distress. Head/Face: Normocephalic, atraumatic. Eyes: Pupils equal round and reactive to light, extra-ocular motions intact. Lids and lashes normal. Conjunctiva and sclera are non-icteric and not injected. Chest/axilla: Normal chest wall appearance and motion. Nontender with no deformity. No lesions are appreciated. Cardiovascular: Regular rate and rhythm. No gallops, murmurs, or rubs. Normal PMI, no JVD. No pulse deficits. Respiratory: Lungs have equal breath sounds bilaterally, clear to auscultation and percussion. No rales, rhonchi or wheezes noted. No increased work of breathing, no retractions or nasal flaring. Abdomen/GI: Soft, non-tender, with normal bowel sounds. No distension or tympany. No guarding or rebound. No evidence of tenderness throughout. MS/ Extremity: Pulses equal, no cyanosis. Neurovascular intact. Full, normal range of motion. Neuro: Awake and alert, GCS 15, oriented to person, place, time, and situation. Cranial nerves II-XII grossly intact. Sensory grossly intact. 22:17 Skin: patient has macular rash, circumscribed, on chest. Possible drug reaction. Additionally has mild edema in BLE 1+.. Vital Signs: 22:01 BP 145 / 92; Pulse 80; Resp 18; Temp 97.9(O); Pulse Ox 98% on R/A; Weight 82.55 kg; lp1 Height 5 ft. 5 in. (165.10 cm); Pain 0/10; 22:01 Body Mass Index 30.29 (82.55 kg, 165.10 cm) lp1 MDM: 22:17 Data reviewed: vital signs, nurses notes, and as a result, I will discharge patient. ps1 Counseling: I had a detailed discussion with the patient and/or guardian regarding: the historical points, exam findings, and any diagnostic results supporting the discharge/admit diagnosis, the need for outpatient follow up, to return to the emergency department if symptoms worsen or persist or if there are any questions or concerns that arise at home. ED course: patient to stop taking amlodipine as this medication is well known to cause edema and likely etiology of rash. Pt to follow up with PCP for medication change and resolution of edema and rash. Precautions given. tramadol for pain in knee which is chronic but out of meds. . 22:28 Patient medically screened. ps1 Administered Medications: No medications were administered Disposition: 01/26/19 22:28 Discharged to Home. Impression: bilateral pitting edema, drug reaction to amlodipine. - Condition is Stable. - Discharge Instructions: Edema, [id number]. - Prescriptions for Tramadol 50 mg Oral Tablet - take 1 tablet by ORAL route every 8 hours as needed; 12 tablet. - Medication Reconciliation Form, Thank You Letter, Antibiotic Education, Prescription Opioid Use form. - Follow up: Private Physician; When: 1 week; Reason: Recheck today's complaints, Continuance of care, Re-evaluation by your physician. Follow up: Emergency Department; When: As needed; Reason: Trouble breathing, Worsening of condition. - Problem is new. - Symptoms are unchanged. Signatures: Alyson Barr RN RN lp1 Maricel Tam RN RN ea Gui Guillen MD MD ps1 Corrections: (The following items were deleted from the chart) 22:46 22:28 01/26/2019 22:28 Discharged to Home. Impression: bilateral pitting edema; drug ea reaction to amlodipine. Condition is Stable. Forms are Medication Reconciliation Form, Thank You Letter, Antibiotic Education, Prescription Opioid Use. Follow up: Private Physician; When: 1 week; Reason: Recheck today's complaints, Continuance of care, Re-evaluation by your physician. Follow up: Emergency Department; When: As needed; Reason: Trouble breathing, Worsening of condition. Problem is new. Symptoms are unchanged. ps1
[2019-01-26 22:51] VITALS: BP 145/92; TEMP 97.9; O2SAT 98
== END 2019-01-26 22:46 | disposition home or self-care (01) ==
LOC: ER 21:41
DX: R60.9 Edema, unspecified (principal); T46.1X5A Adverse effect of calcium-channel blockers, initial encounter; I10 Essential (primary) hypertension; E11.9 Type 2 diabetes mellitus without complications; E78.5 Hyperlipidemia, unspecified
CPT/HCPCS: 99282

== ENCOUNTER 2019-04-03 10:07 | Observation (INO) | payer SELFPAY ==
--- OUTSIDE RECORDS SUMMARY | 2019-04-03 10:14 | XMS REPORT ---
:1960 [facility] Address [address] [place] [address] Dr. Richardson [address] [place] [id number] Care Team Providers Name Role Phone Unavailable Unavailable Unavailable Problems This patient has no known problems. Allergies, Adverse Reactions, Alerts This patient has no known allergies or adverse reactions. Medications This patient has no known medications.
--- NOTE | 2019-04-03 10:32 | EKG ---
Test Date: 2019-04-03 Test Time: 10:19:50 Medical Practitioners: GIULIA MEASUREMENT RESULTS: Intervals: Rate: 65 TX: 150 QRSD: 86 QT: 448 QTc: 465 [place]: P: 48 TX: 150 QRS: -18 T: -25 INTERPRETIVE STATEMENTS: Normal sinus rhythm Moderate voltage criteria for LVH, may be normal variant Nonspecific ST and T wave abnormality Prolonged QT Abnormal ECG Compared to ECG 03/14/2018 21:11:12 ST (T wave) deviation now present Sinus arrhythmia no longer present T-wave abnormality no longer present Possible ischemia no longer present Electronically Signed On 04-03-19 10:31:24 CDT by Rajendra Marin
[2019-04-03] MEDS ORDERED: ASPIRIN 81 MG CHEWABLE TABLET ONE (10:42)
--- NOTE | 2019-04-03 10:56 | RAD REPORT ---
EXAM DESCRIPTION: RAD - Chest Single View - 04/03/2019 10:50 am CLINICAL HISTORY: Chest pain COMPARISON: April 2014 TECHNIQUE: AP portable chest image was obtained 1042 hours . FINDINGS: Lung volumes are low. No peripheral mass or consolidation. No failure or volume overload. When adjusting for respiratory and technique differences, lung markings are not substantially differe nt from the prior study. Trachea is midline. Heart and vasculature are normal. No measurable pleural effusion and no pneumothorax. No acute bony abnormality seen. No acute aortic findings suspected. IMPRESSION: No acute cardiopulmonary process. No suspicious change from comparison.
[2019-04-03 10:57] LABS: Absolute Lymphocytes (CBC) 3.2 K/uL (0.7-4.9); Hematocrit 44.2 % (39.6-49.0); Lymphocytes % 37.4 % (15.3-44.8); MPV 9.6 fL (7.6-11.3); Protime INR 1.03; RBC Red Blood Cell Count 5.11 M/uL (4.33-5.43)
[2019-04-03 11:19] LABS: ALT/SGPT 41 U/L (12-78); AST/SGOT 24 U/L (15-37); Albumin 4.2 g/dL (3.4-5.0); Alkaline Phosphatase 76 U/L (45-117); BUN Blood Urea Nitrogen 20 mg/dL (7-18); Bicarbonate 28 mmol/L (21-32); Bilirubin Direct 0.1 mg/dL (0-0.2); Bilirubin Total 0.7 mg/dL (0.2-1.0); Glucose Level 166 mg/dL (74-106); Magnesium 1.8 mg/dL (1.8-2.4); NT PRO-BNP 12 pg/mL (<125); Sodium Level 142 mmol/L (136-145); Troponin (Emerg Dept Use Only) < 0.02 ng/mL (0.0-0.045)
[2019-04-03 11:31] LABS: Potassium 2.6 mmol/L (3.5-5.1)
--- NOTE | 2019-04-03 11:51 | ER ---
Nurse's Notes [facility] Name: Ramón Avilez Age: 58 yrs Sex: Male : 1960 Arrival Date: 04/03/2019 Time: 10:09 Bed 5 Private MD: Diagnosis: Chest pain, unspecified Presentation: 04/03 10:12 Presenting complaint: Patient states: "I was asleep and I woke up with pain in my chest aj1 and my heart is beating really hard" Reports left sided chest pain that started 0200 this morning. Pain does not radiate. Denies shortness of breath. Reports that he is still having the pain but it is not as bad. Transition of care: patient was not received from another setting of care. Onset of symptoms was April 03, 2019 at 02:00. Risk Assessment: Do you want to hurt yourself or someone else? Patient reports no desire to harm self or others. Initial Sepsis Screen: Does the patient meet any 2 criteria? No. Patient's initial sepsis screen is negative. Does the patient have a suspected source of infection? No. Patient's initial sepsis screen is negative. Care prior to arrival: None. 10:12 Method Of Arrival: Ambulatory aj1 10:12 Acuity: MENG 3 aj1 Triage Assessment: 10:16 General: Appears in no apparent distress. comfortable, Behavior is calm, cooperative, aj1 appropriate for age. Pain: Complains of pain in anterior aspect of left upper chest Pain does not radiate. Pain currently is 3 out of 10 on a pain scale. Quality of pain is described as aching, Pain began 8 hours ago. Neuro: Level of Consciousness is awake, alert, obeys commands, Oriented to person, place, time, situation. Cardiovascular: Reports chest pain, palpitations, Denies shortness of breath, Heart tones S1 S2 present Patient's skin is warm and dry. Respiratory: Airway is patent Respiratory effort is even, unlabored, Respiratory pattern is regular, symmetrical, Breath sounds are clear bilaterally. Denies shortness of breath. Historical: - Allergies: 10:16 No Known Allergies; aj1 - Home Meds: 10:16 allopurinol 100 mg Oral tab 4 tabs once daily [Active]; amlodipine 10 mg tab 1 tab once aj1 daily [Active]; lisinopril 40 mg Oral tab 1 tab once daily [Active]; - PMHx: 10:16 Diabetes - NIDDM; Gout; High Cholesterol; Hypertension; aj1 - Immunization history:: Flu vaccine status is unknown. - Social history:: Smoking status: Patient/guardian denies using tobacco. - Ebola Screening: : Patient denies travel to an Ebola-affected area in the 21 days before illness onset. Screenin:30 Abuse screen: Denies threats or abuse. Denies injuries from another. Nutritional sv screening: No deficits noted. Tuberculosis screening: No symptoms or risk factors identified. Fall Risk None identified. Assessment: 10:30 Also complains of no other symptoms. General: Appears in no apparent distress. sv comfortable, well groomed, well developed, Behavior is calm, cooperative, appropriate for age. Pain: Denies pain. Neuro: Level of Consciousness is awake, alert, obeys commands, Oriented to person, place, time, situation, Moves all extremities. Full function Gait is steady. Cardiovascular: Reports chest pain, that woke him up out of his sleep this morning. Denies chest pain, Patient's skin is warm and dry. Pulses are 3+ in right radial artery and left radial artery. Respiratory: Reports shortness of breath at the time of chest pain this morning Airway is patent Respiratory effort is even, unlabored, Respiratory pattern is regular, symmetrical. Derm: Skin is pink, warm \\T\\ dry. 12:00 Reassessment: Patient appears in no apparent distress at this time. No changes from sv previously documented assessment. Patient and/or family updated on plan of care and expected duration. Pain level reassessed. Patient is alert, oriented x 3, equal unlabored respirations, skin warm/dry/pink. 13:00 Reassessment: Patient appears in no apparent distress at this time. No changes from sv previously documented assessment. Patient and/or family updated on plan of care and expected duration. Pain level reassessed. Patient is alert, oriented x 3, equal unlabored respirations, skin warm/dry/pink. 14:00 Reassessment: Patient appears in no apparent distress at this time. No changes from sv previously documented assessment. Patient and/or family updated on plan of care and expected duration. Pain level reassessed. Patient is alert, oriented x 3, equal unlabored respirations, skin warm/dry/pink. 14:10 Reassessment: Echo at the bedside, pt to be taken up after they are done. sv Vital Signs: 10:16 BP 140 / 94; Pulse 68; Resp 18; Temp 97.7; Pulse Ox 97% on R/A; Weight 83.46 kg (R); aj1 Height 5 ft. 5 in. (165.10 cm) (R); Pain 3/10; 11:04 BP 123 / 78; Pulse 60; Resp 16; Pulse Ox 96% on R/A; sv 11:44 BP 127 / 83; Pulse 60; Resp 12; Pulse Ox 97% on R/A; sv 12:30 BP 129 / 93; Pulse 56; Resp 14; Pulse Ox 96% on R/A; sv 13:25 BP 125 / 91; Pulse 58; Resp 16; Pulse Ox 96% ; sv 13:55 BP 121 / 87; Pulse 60; Resp 17; Pulse Ox 96% on R/A; sv 10:16 Body Mass Index 30.62 (83.46 kg, 165.10 cm) aj1 ED Course: 10:09 Patient arrived in ED. as 10:15 Triage completed. aj1 10:16 Arm band placed on Patient placed in waiting room, Patient notified of wait time. EKG aj1 completed in triage. Results shown to MD. 10:21 Jp Marie PA is PHCP. cp 10:21 Chito Rowe MD is Attending Physician. cp 10:23 Sridevi Rice, DAVID is Primary Nurse. sv 10:30 Patient has correct armband on for positive identification. Placed in gown. Bed in low sv position. Call light in reach. cafeteria monitor on. Pulse ox on. NIBP on. Door closed. Warm blanket given. Head of bed elevated. 10:30 Inserted saline lock: 20 gauge in right antecubital area, using aseptic technique. sv Blood collected. Flushed right antecubital with 5 ml normal saline. Patient maintains SpO2 saturation greater than 95% on room air. 11:00 XRAY Chest (1 view) In Process Unspecified. EDMS 11:41 Awaiting radiology results. Awaiting re-evaluation by ER provider. sv 11:49 Dede Donohue MD is Hospitalizing Provider. cp 14:12 No provider procedures requiring assistance completed. Patient admitted, IV remains in sv place. intact. Administered Medications: 10:49 Drug: Aspirin Chewable Tablet 324 mg Route: PO; sv 11:41 Follow up: Response: No adverse reaction sv 14:12 Drug: Potassium Effervescent Tablet 50 mEq Route: PO; sv 14:35 Follow up: Response: No adverse reaction sv 14:35 Drug: Potassium Chloride 20 mEq Route: IV; Rate: calculated rate; Site: right sv antecubital; 14:35 Follow up: IV Status: Infusion continued upon admission sv Outcome: 11:49 Decision to Hospitalize by Provider. cp 14:13 Admitted to Tele accompanied by tech, via wheelchair, room 406, with chart, Report sv called to Kandice HERNANDEZ 14:13 Condition: stable 14:13 Instructed on the need for admit. 14:35 Patient left the ED. sv Signatures: Dispatcher [employer] Octavia Uriostegui RN RN aj1 Sridevi Rice RN RN sv Marci Arce Corey, PA PA cp
--- NOTE | 2019-04-03 11:52 | EDPHYS ---
Physician Documentation [facility] Name: Ramón Avilez Age: 58 yrs Sex: Male : 1960 Arrival Date: 04/03/2019 Time: 10:09 Bed 5 Private MD: ED Physician Chito Rowe HPI: 04/03 10:39 This 58 yrs old Male presents to ER via Ambulatory with complaints of Chest cp Pain, Irregular Pulse. 10:39 The patient or guardian reports chest pain that is located primarily in the anterior cp chest wall, left. Onset: this morning, awoke patient from sleep. The pain does not radiate. Associated signs and symptoms: Pertinent positives: palpitations, Pertinent negatives: abdominal pain, cough, diaphoresis, lower extremity pain, lower extremity swelling, syncope. Duration: The patient or guardian reports a single episode, that is now resolved. Historical: - Allergies: 10:16 No Known Allergies; aj1 - Home Meds: 10:16 allopurinol 100 mg Oral tab 4 tabs once daily [Active]; amlodipine 10 mg tab 1 tab once aj1 daily [Active]; lisinopril 40 mg Oral tab 1 tab once daily [Active]; - PMHx: 10:16 Diabetes - NIDDM; Gout; High Cholesterol; Hypertension; aj1 - Immunization history:: Flu vaccine status is unknown. - Social history:: Smoking status: Patient/guardian denies using tobacco. - Ebola Screening: : Patient denies travel to an Ebola-affected area in the 21 days before illness onset. ROS: 10:42 Eyes: Negative for injury, pain, redness, and discharge. cp 10:42 Constitutional: Negative for body aches, chills, fever, poor PO intake. 10:42 ENT: Negative for drainage from ear(s), ear pain, sore throat, difficulty swallowing, difficulty handling secretions. 10:42 Cardiovascular: Positive for chest pain, palpitations, Negative for edema. 10:42 Respiratory: Negative for cough, shortness of breath, wheezing. 10:42 Abdomen/GI: Negative for abdominal pain, nausea, vomiting, and diarrhea, constipation, anorexia, black/tarry stool, rectal bleeding. 10:42 Back: Negative for pain at rest, pain with movement. 10:42 Skin: Negative for rash. 10:42 Neuro: Negative for altered mental status, headache, syncope, weakness. 10:42 All other systems are negative. Exam: 10:30 ECG was reviewed by the Attending Physician. cp 10:43 Head/Face: Normocephalic, atraumatic. cp 10:43 Constitutional: The patient appears in no acute distress, alert, awake, comfortable, non-diaphoretic, non-toxic, well developed, well nourished. 10:43 Eyes: Periorbital structures: appear normal, Conjunctiva: normal, no exudate, no injection, Sclera: no appreciated abnormality, Lids and lashes: appear normal, bilaterally. 10:43 ENT: External ear(s): are unremarkable, Nose: is normal, Mouth: is normal, Posterior pharynx: is normal, airway is patent, no erythema, no exudate. 10:43 Chest/axilla: Inspection: normal, Palpation: is normal, no crepitus, no tenderness. 10:43 Cardiovascular: Rate: normal, Rhythm: regular, Pulses: Pulses are 2+ in right radial artery and left radial artery. Edema: is not appreciated, JVD: is not appreciated. 10:43 Respiratory: the patient does not display signs of respiratory distress, Respirations: normal, no use of accessory muscles, no retractions, no splinting, no tachypnea, labored breathing, is not present, Breath sounds: are clear throughout, no decreased breath sounds, no stridor, no wheezing. 10:43 Abdomen/GI: Exam negative for discomfort, distension, guarding, Inspection: abdomen appears normal. 10:43 Back: pain, is absent, ROM is normal. 10:43 Skin: no rash present. 10:43 Neuro: Orientation: to person, place \T\ time. Mentation: is normal, Cerebellar function: is grossly normal, Motor: moves all fours, strength is normal, Sensation: is normal. Vital Signs: 10:16 BP 140 / 94; Pulse 68; Resp 18; Temp 97.7; Pulse Ox 97% on R/A; Weight 83.46 kg (R); aj1 Height 5 ft. 5 in. (165.10 cm) (R); Pain 3/10; 11:04 BP 123 / 78; Pulse 60; Resp 16; Pulse Ox 96% on R/A; sv 11:44 BP 127 / 83; Pulse 60; Resp 12; Pulse Ox 97% on R/A; sv 12:30 BP 129 / 93; Pulse 56; Resp 14; Pulse Ox 96% on R/A; sv 13:25 BP 125 / 91; Pulse 58; Resp 16; Pulse Ox 96% ; sv 13:55 BP 121 / 87; Pulse 60; Resp 17; Pulse Ox 96% on R/A; sv 10:16 Body Mass Index 30.62 (83.46 kg, 165.10 cm) aj1 MDM: 10:21 Patient medically screened. cp 11:40 The patient was given aspirin in the Emergency Department. cp 11:41 HEART Score: History: Moderately Suspicious (1), ECG: Non specific repolarization cp disturbance / LBTB / PM (1), Age: > 45 and < 65 years (1), Risk Factors: > or = 3 Risk factors for atherosclerotic disease (2), [Hypercholesterolemia] [Hypertension] [DM] Troponin: < or = 1 x Normal Limit (0). 11:47 Data reviewed: vital signs, nurses notes, lab test result(s), EKG, radiologic studies, cp plain films, I have discussed the patient's presentation/case with the attending Emergency Department Physician; and as a result, I will admit patient. Physician consultation: Dede Donohue MD was called at 11:48, was contacted at 11:48, regarding admission, to the telemetry unit. patient's condition. 04/03 10:23 Order name: Basic Metabolic Panel; Complete Time: 11:38 sv 04/03 11:38 Interpretation: Normal except: K 2.6; GLUC 166; BUN 20; GFR 64. cp 04/03 10:23 Order name: CBC with Diff sv 04/03 10:23 Order name: LFT's; Complete Time: 11:38 sv 04/03 10:23 Order name: Magnesium; Complete Time: 11:38 sv 04/03 10:23 Order name: NT PRO-BNP; Complete Time: 11:38 sv 04/03 10:23 Order name: PT-INR; Complete Time: 11:38 sv 04/03 10:23 Order name: Troponin (emerg Dept Use Only); Complete Time: 11:38 sv 04/03 10:23 Order name: XRAY Chest (1 view) sv 04/03 12:47 Order name: Echo with Doppler EDMS 04/03 12:47 Order name: Troponin I EDWV 04/03 12:47 Order name: Troponin I EDWV 04/03 12:47 Order name: Troponin I EDWV 04/03 12:47 Order name: Troponin I EDWV 04/03 13:22 Order name: Manual Differential EDWV 04/03 10:23 Order name: EKG; Complete Time: 10:25 sv 04/03 10:23 Order name: Cardiac monitoring; Complete Time: 10:50 sv 04/03 10:23 Order name: EKG - Nurse/Tech; Complete Time: 10:50 sv 04/03 10:23 Order name: IV Saline Lock; Complete Time: 10:50 sv 04/03 10:23 Order name: Labs collected and sent; Complete Time: 10:50 sv 04/03 10:23 Order name: O2 Per Protocol; Complete Time: 10:50 sv 04/03 10:23 Order name: O2 Sat Monitoring; Complete Time: 10:50 sv 04/03 12:47 Order name: CONS Physician Consult EDWV 04/03 12:47 Order name: Heart Healthy EDWV EC:30 Rate is 65 beats/min. Rhythm is regular. ND interval is normal. QRS interval is normal. cp QT interval is prolonged at 448 msec. T waves are Inverted in leads aVF, V6. Interpreted by me. Reviewed by me. Administered Medications: 10:49 Drug: Aspirin Chewable Tablet 324 mg Route: PO; sv 11:41 Follow up: Response: No adverse reaction sv 14:12 Drug: Potassium Effervescent Tablet 50 mEq Route: PO; sv 14:35 Follow up: Response: No adverse reaction sv 14:35 Drug: Potassium Chloride 20 mEq Route: IV; Rate: calculated rate; Site: right sv antecubital; 14:35 Follow up: IV Status: Infusion continued upon admission sv Disposition: 15:43 Co-signature as Attending Physician, Chito Rowe MD I agree with the assessment and kdr plan of care. Disposition: 04/03/19 11:49 Hospitalization ordered by Dede Donohue for Observation. Preliminary diagnosis is Chest pain, unspecified. - Bed requested for Telemetry/MedSurg (observation). - Status is Observation. sv - Condition is Stable. - Problem is new. - Symptoms have improved. UTI on Admission? No Signatures: Dispatcher [employer] Octavia Uriostegui, RN RN aj1 Sridevi Rice RN RN sv Chito Rowe MD MD kdr Jp Marie PA PA cp Botello, Elizabeth eb Corrections: (The following items were deleted from the chart) 11:56 11:49 Hospitalization Ordered by Dede Donohue MD for Observation. Preliminary eb diagnosis is Chest pain, unspecified. Bed requested for Telemetry/MedSurg (observation). Status is Observation. Condition is Stable. Problem is new. Symptoms have improved. UTI on Admission? No. cp 13:17 11:56 04/03/2019 11:49 Hospitalization Ordered by Dede Donohue MD for Observation. eb Preliminary diagnosis is Chest pain, unspecified. Bed requested for Telemetry/MedSurg (observation). Status is Observation. Condition is Stable. Problem is new. Symptoms have improved. UTI on Admission? No. eb 14:35 13:17 04/03/2019 11:49 Hospitalization Ordered by Dede Donohue MD for Observation. sv Preliminary diagnosis is Chest pain, unspecified. Bed requested for Telemetry/MedSurg (observation). Status is Observation. Condition is Stable. Problem is new. Symptoms have improved. UTI on Admission? No. eb
[2019-04-03 13:20] LABS: Blood Morphology Comment NOT SEEN (NOT SEEN); Platelet Estimate ADEQ
[2019-04-03] MEDS ORDERED: POTASSIUM 25 MEQ EFFERV TAB ONE (14:10)
[2019-04-03] MEDS ORDERED: KCL 20 MEQ/100 mL IVPB 0 MEQ/0 ML BAG IV ONE (14:10)
[2019-04-03] MEDS ORDERED: ONDANSETRON 4 MG/2 ML VIAL IV PRN (14:36)
--- NOTE | 2019-04-03 14:51 | P.HP ---
Certification for Inpatient Patient admitted to: Observation With expected LOS: <2 Midnights Patient will require the following post-hospital care: None Practitioner: I am a practitioner with admitting privileges, knowledge of patient current condition, hospital course, and medical plan of care. Services: Services provided to patient in accordance with Admission requirements found in Title 42 Section 412.3 of the Code of Federal Regulations Patient History Date of Service: 04/03/19 Reason for admission: Chest pain History of Present Illness: This is a 58-year-old male with significant past medical history of hypertension and gout who presented to the ED complaining of having some chest pain. Patient stated that he has been having chest pain intermittently with exertion and this morning he woke up with chest pain. Patient initially thought that it was just gas buildup however since chest pain did not go with that he decided to come to the ER. Patient denies having any shortness of breath nausea vomiting or any other associated symptoms at this time. Chest pain is midsternal and does not radiate anywhere. Pain at its worst was an 8/ 10 and is sharp in nature. No other complaints to offer at this time. Has not seen any doctor regarding this before. Allergies No Known Allergies Allergy (Verified 03/15/18 02:06) Home Medications: Allopurinol 1 tab PO DAILY 03/15/18 Colchicine 1 tab PO DAILY 03/15/18 Lisinopril 1 tab PO DAILY 03/15/18 Metformin HCl 1 tab PO DAILY 03/15/18 Methylprednisolone [Medrol dosepack] 4 mg PO DIRECTED #1 julieta 03/15/18 Naproxen [Naprosyn] 500 mg PO DAILY #20 tablet 03/15/18 Omeprazole Magnesium [Prilosec Otc] 20 mg PO DAILY #30 tablet. 03/15/18 Tramadol HCl [Ultram] 50 mg PO Q6HP PRN #60 tablet 03/15/18 hydrOXYzine HCl [Atarax] 1 tab PO BEDTIME PRN 03/15/18 - Past Medical/Surgical History Diabetic: Yes -: HTN -: NIDDM -: Hypokalemia -: Gout both knees; feet -: High cholesterol -: Anxiety -: Right ankle surgery - Family History uncle -: Cancer Notes: unable to recall the specific cancer - Social History Alcohol use: No CD- Drugs: No Caffeine use: Yes Review of Systems 10-point ROS is otherwise unremarkable Physical Examination - Vital Signs Temperature: 97.7 F Blood Pressure: 121/87 Pulse: 60 Respirations: 17 - Physical Exam General: Alert, In no apparent distress HEENT: Atraumatic, PERRLA, Mucous membr. moist/pink, EOMI, Sclerae nonicteric Neck: Supple, 2+ carotid pulse no bruit, No LAD, Without JVD or thyroid abnormality Respiratory: Clear to auscultation bilaterally, Normal air movement Cardiovascular: Regular rate/rhythm, Normal S1 S2 Gastrointestinal: Normal bowel sounds, No tenderness Musculoskeletal: No tenderness Integumentary: No rashes Neurological: Normal gait, Normal speech, Normal strength at 5/5 x4 extr, Normal tone, Normal affect Lymphatics: No axilla or inguinal lymphadenopathy - Studies Laboratory Data (last 24 hrs) 04/03/19 10:30: PT 12.1, INR 1.03 04/03/19 10:30: WBC 8.6, Hgb 15.4, Hct 44.2, Plt Count 224 04/03/19 10:30: Sodium 142, Potassium 2.6 L*, BUN 20 H, Creatinine 1.17, Glucose 166 H, Magnesium 1.8 D, Total Bilirubin 0.7, AST 24, ALT 41, Alkaline Phosphatase 76 Assessment and Plan - Problems (Diagnosis) (1) Chest pain Current Visit: Yes Status: Acute Plan: Atypical chest pain most likely secondary to reflux however will rule out any cardiac etiology -troponin x2 q.8 hr -cardiology consulted. Awaiting recommendations -echocardiogram ordered at this time -started on ACS medication Qualifiers: Chest pain type: other chest pain Qualified Code(s): R07.89 - Other chest pain; R07.8 - Other chest pain (2) Gout Current Visit: Yes Status: Chronic Plan: Resume home medication Qualifiers: Gout site: knee Gout etiology: unspecified cause Chronicity: unspecified Laterality: unspecified laterality Qualified Code(s): M10.9 - Gout, unspecified (3) HTN (hypertension) Onset Date: 03/18/18 Current Visit: No Status: Chronic Plan: Resume home medication Qualifiers: Hypertension type: essential hypertension Qualified Code(s): I10 - Essential (primary) hypertension (4) Hypokalemia Onset Date: 03/18/18 Current Visit: No Status: Chronic Plan: Will replace accordingly Discharge Plan: Home Plan to discharge in: 48 Hours - Advance Directives Does patient have a Living Will: No Does patient have a Durable POA for Healthcare: No - Code Status/Comfort Care Code Status Assessed: Yes Critical Care: No
[2019-04-03 15:18] VITALS: BMI 30.6
[2019-04-03] MEDS ORDERED: POTASSIUM CL SA 10 MEQ TAB PO ONE ×2 (15:52→20:20)
[2019-04-03] MEDS ORDERED: GLUCAGON 1 MG/VIAL IM PRN (17:40)
[2019-04-03] MEDS ORDERED: D50W 25 GM/50 ML SYRINGE IV PRN (17:40)
[2019-04-03 18:52] LABS: Potassium 3.1 mmol/L (3.5-5.1); Troponin I < 0.02 ng/mL (0.0-0.045)
[2019-04-03] MEDS: INSULIN -REGULAR HUMAN 50 UNIT/0.5 ML ML SQ SCH (20:21)
[2019-04-03] MEDS ORDERED: ATORVASTATIN 20 MG TAB PO SCH (21:00)
[2019-04-04 00:02] LABS: Urine Appearance CLEAR; Urine Bilirubin NEGATIVE (NEG); Urine Blood NEGATIVE (NEG); Urine Color YELLOW; Urine Glucose 2+ (NEG); Urine Protein NEGATIVE (NEG)
[2019-04-04 00:26] LABS: Urine Microscopic Reflex NO UMIC
[2019-04-04 04:32] LABS: Absolute Lymphocytes (CBC) 3.1 K/uL (0.7-4.9); Basophils % 1.9 % (0-1.3); Hematocrit 40.5 % (39.6-49.0); Lymphocytes % 37.9 % (15.3-44.8); MPV 9.7 fL (7.6-11.3); RBC Red Blood Cell Count 4.66 M/uL (4.33-5.43)
[2019-04-04 04:51] LABS: ALT/SGPT 34 U/L (12-78); AST/SGOT 24 U/L (15-37); Albumin 3.7 g/dL (3.4-5.0); Alkaline Phosphatase 60 U/L (45-117); BUN Blood Urea Nitrogen 19 mg/dL (7-18); Bicarbonate 31 mmol/L (21-32); Bilirubin Total 0.6 mg/dL (0.2-1.0); Glucose Level 141 mg/dL (74-106); Phosphorus 3.4 mg/dL (2.5-4.9); Sodium Level 142 mmol/L (136-145); Troponin I < 0.02 ng/mL (0.0-0.045)
[2019-04-04 04:52] LABS: Potassium 2.8 mmol/L (3.5-5.1)
[2019-04-04] MEDS: KCL 20 MEQ/100 mL IVPB 20 MEQ/100 ML BAG IV SCH ×3 (05:26→12:02)
[2019-04-04] MEDS ORDERED: NA CHLORIDE 0.9% 250 ML ONE (05:29)
[2019-04-04] MEDS: INSULIN -REGULAR HUMAN 50 UNIT/0.5 ML ML SQ SCH (07:30)
[2019-04-04] MEDS ORDERED: ENOXAPARIN 40 MG/0.4 ML SQ SCH (09:00)
[2019-04-04] MEDS ORDERED: ASPIRIN EC 81 MG TAB PO SCH (09:00)
[2019-04-04 10:09] VITALS: O2SAT 98
--- NOTE | 2019-04-04 11:53 | P.SSS ---
Patient History Date of Service: 04/04/19 Reason for admission: Chest pain History of Present Illness: This is a 58-year-old male with significant past medical history of hypertension and gout who presented to the ED complaining of having some chest pain. Patient stated that he has been having chest pain intermittently with exertion and this morning he woke up with chest pain. Patient initially thought that it was just gas buildup however since chest pain did not go with that he decided to come to the ER. Patient denies having any shortness of breath nausea vomiting or any other associated symptoms at this time. Chest pain is midsternal and does not radiate anywhere. Pain at its worst was an 8/ 10 and is sharp in nature. No other complaints to offer at this time. Has not seen any doctor regarding this before. Allergies No Known Allergies Allergy (Verified 03/15/18 02:06) Home Medications: Allopurinol [Zyloprim*] 400 mg PO DAILY 04/03/19 Chlorthalidone 1 tab PO DAILY 04/03/19 Lisinopril 1 tab PO DAILY 04/03/19 - Past Medical/Surgical History Has patient received pneumonia vaccine in the past: No Diabetic: Yes -: HTN -: NIDDM -: Hypokalemia -: Gout both knees; feet -: High cholesterol -: Anxiety -: Right ankle surgery - Family History uncle -: Cancer Notes: unable to recall the specific cancer - Social History Smoking Status: Former smoker Alcohol use: No CD- Drugs: No Caffeine use: Yes Place of Residence: Home Review of Systems 10-point ROS is otherwise unremarkable Physical Examination - Vital Signs Temperature: 98.2 F Blood Pressure: 134/75 Pulse: 56 Respirations: 16 Pulse Ox (%): 98 - Physical Exam General: Alert, In no apparent distress HEENT: Atraumatic, PERRLA, Mucous membr. moist/pink, EOMI, Sclerae nonicteric Neck: Supple, 2+ carotid pulse no bruit, No LAD, Without JVD or thyroid abnormality Respiratory: Clear to auscultation bilaterally, Normal air movement Cardiovascular: Regular rate/rhythm, Normal S1 S2 Gastrointestinal: Normal bowel sounds, No tenderness Musculoskeletal: No tenderness Integumentary: No rashes Neurological: Normal gait, Normal speech, Normal strength at 5/5 x4 extr, Normal tone, Normal affect Lymphatics: No axilla or inguinal lymphadenopathy - Studies Laboratory Data (last 24 hrs) 04/03/19 10:30: WBC 8.6, Hgb 15.4, Hct 44.2, Plt Count 224 - Diagnosis (Problem(s)) (1) Chest pain Current Visit: Yes Status: Acute Plan: Atypical chest pain most likely secondary to reflux however will rule out any cardiac etiology -troponin x2 negative for acute abnormality. EKG negative for CAD -cardiology consulted. Recommendations appreciated -outpatient follow up for stress test Qualifiers: Chest pain type: other chest pain Qualified Code(s): R07.89 - Other chest pain; R07.8 - Other chest pain (2) Gout Current Visit: Yes Status: Chronic Qualifiers: Gout site: knee Gout etiology: unspecified cause Chronicity: unspecified Laterality: unspecified laterality Qualified Code(s): M10.9 - Gout, unspecified (3) HTN (hypertension) Onset Date: 03/18/18 Current Visit: No Status: Chronic Plan: Resume home medication on discharge Qualifiers: Hypertension type: essential hypertension Qualified Code(s): I10 - Essential (primary) hypertension (4) Hypokalemia Onset Date: 03/18/18 Current Visit: No Status: Chronic Plan: Replaced and patient educated regarding taking food that is high in potassium. - Disposition Disposition: ROUTINE DISCHARGE Condition: GOOD Diet: Regular Activity: Ad dino
[2019-04-04 16:22] VITALS: BP 140/85; TEMP 98.5
[2019-04-04] MEDS ORDERED: POTASSIUM 25 MEQ EFFERV TAB PO ONE (17:05)
--- NOTE | 2019-04-06 08:08 | ECHO ---
HEIGHT: 5 ft 5 in WEIGHT: 184 lb 0 oz DATE OF STUDY: 04/03/[address]: Dede Donohue MD 2-DIMENSIONAL: YES M.MODE: YES DOPPLER: YES COLOR FLOW: YES TDS: NO PORTABLE: NO DEFINITY: NO BUBBLE STUDY: NO DIAGNOSIS: CHEST PAIN CARDIAC HISTORY: CATHERIZATION: NO SURGERY: NO PROSTHETIC VALVE: NO PACEMAKER: NO MEASUREMENTS (cm) DIASTOLIC (NORMALS) SYSTOLIC (NORMALS) IVSd 1.0 (0.6-1.2) LA Diam 2.8 (1.9-4.0) LVEF 56% LVIDd 3.2 (3.5-5.7) LVIDs 2.3 (2.0-3.5) %FS 28% LVPWd 1.2 (0.6-1.2) Ao Diam 2.6 (2.0-3.7) 2 DIMENSIONAL ASSESSMENT: RIGHT ATRIUM: NORMAL LEFT ATRIUM: NORMAL RIGHT VENTRICLE: NORMAL LEFT VENTRICLE: NORMAL TRICUSPID VALVE: NORMAL MITRAL VALVE: NORMAL PULMONIC VALVE: NORMAL AORTIC VALVE: NORMAL PERICARDIAL EFFUSION: NONE AORTIC ROOT: NORMAL LEFT VENTRICULAR WALL MOTION: NORMAL DOPPLER/COLOR FLOW: MILD TRICUSPID REGURGITATION. COMMENTS: MILD TRICUSPID REGURGITATION. NORMAL RIGHT VENTRICULAR SYSTOLIC PRESSURE. NORMAL LEFT VENTRICULAR SIZE AND FUNCTION. NO WALL MOTION ABNORMALITY. TECHNOLOGIST: Lisbet MURRAY
--- NOTE | 2019-04-06 09:25 | CON ---
Date of Consultation: 04/04/[address] Donohue's service on 04/03/2019. I saw the patient on 04/04/2019. Reason For Consultation: Chest pain. History Of Present Illness: Mr. Avilez is a 58-year-old [place]izen [place] male with history of diabetes, hypertension, dyslipidemia, and gout. He came in with sharp, stabbing chest pain over the left ante rior chest. It did not radiate. He had no nausea, vomiting, diaphoresis, PND, orthopnea, pedal maria a, palpitations, or syncope. By the time I saw him, he was already ruled out for an [place]. Past Medical History: As stated above. Allergies: NONE. Review of Systems: Negative. Social History: Negative. Family History: Negative. Medications: At home include lisinopril, allopurinol, and chlorthalidone. Physical Examination: General: Very pleasant, in no acute distress, wanted to go home. Vital Signs: Stable, afebrile. HEENT: Negative. Neck: Supple with no bruit. Chest: Clear. Cardiac: Normal. Abdomen: Benign. Extremities: Revealed no clubbing, cyanosis, or edema. Diagnostic Data: Showed a potassium 2.8, glucose of 244. EKG showed LVH. Troponin and BNP were neg ative. Impression And Plan: 1.Atypical chest pain may be secondary to hypokalemia. 2.Diabetes, poorly controlled. 3.Gout. 4.Hypertension, well controlled. 5.Dyslipidemia, well controlled. Mr. Avilez can definitely go home potassium supplement by mouth and he is still getting IV potassium now. The regimen at home includes the lisinopril, but I would suggest he stop the chlortha lidone as this is causing his hypokalemia. Maybe a low-dose beta-peggy or Norvasc would be better. He sees physicians in [place]. I recommended that his potassium is corrected. He can go home on l isinopril only. Follow up with his doctor in [place]. I recommended that he has an outpatient echoc ardiogram and stress test . NB/MODL Voice ID: [id number] Report ID: [id number]
== END 2019-04-04 17:40 | disposition home or self-care (01) ==
LOC: ER 10:07 → ERHOLD 12:44 → 4TH 14:12
PROVIDERS: ADMIT Family Medicine; ATTEND Family Medicine
DX: R07.89 Other chest pain (principal); E87.6 Hypokalemia; E78.5 Hyperlipidemia, unspecified; I10 Essential (primary) hypertension; M10.9 Gout, unspecified; E11.8 Type 2 diabetes mellitus with unspecified complications
CPT/HCPCS: 36415; 71045; 80048; 80053; 80076; 81003; 82962; 83735; 83880; 84100; 84132; 84484; 85025; 85610; 93005; 93306; 96374; 99285; G0378; J1650

== ENCOUNTER 2020-12-28 21:58 | Emergency (ER) | payer SELFPAY ==
[2020-12-28] MEDS ORDERED: HYDROCODONE/APAP 7.5/325 MG TAB ONE (23:14)
[2020-12-28] MEDS ORDERED: KETOROLAC 30 MG/ML INJ ONE (23:15)
--- NOTE | 2020-12-28 23:44 | EDPHYS ---
Physician Documentation [facility] Name: Ramón Avilez Age: 60 yrs Sex: Male : 1960 Arrival Date: 12/28/2020 Time: 22:04 Bed 18 Private MD: ED Physician Mo Robles HPI: 12/28 23:00 This 60 yrs old Male presents to ER via Wheelchair with complaints of Knee cp Pain. 23:00 The patient presents with pain, that is acute, swelling, tenderness. The complaints cp affect the right knee. Context: the patient can partially bear weight, the patient is able to ambulate, with moderate difficulty. Onset: The symptoms/episode began/occurred 3 day(s) ago. Associated signs and symptoms: Pertinent positives: swelling, Pertinent negatives calf tenderness, fever, warmth. Patient reports history of gout with previous flare of right knee. Historical: - Allergies: 22:16 No Known Allergies; em - PMHx: 22:16 Diabetes - NIDDM; Gout; High Cholesterol; Hypertension; em - PSHx: 22:16 None; em - Immunization history:: Adult Immunizations up to date. - Social history:: Smoking status: Patient denies any tobacco usage or history of. ROS: 23:05 MS/extremity: Positive for pain, swelling, tenderness, of the right knee, Negative for cp injury or acute deformity, decreased range of motion, paresthesias. 23:05 Eyes: Negative for injury, pain, redness, and discharge. cp 23:05 Constitutional: Negative for body aches, chills, fever, poor PO intake. 23:05 Neck: Negative for pain with movement, pain at rest, stiffness. 23:05 Respiratory: Negative for cough, shortness of breath, wheezing. 23:05 Abdomen/GI: Negative for abdominal pain, nausea, vomiting, and diarrhea. 23:05 Back: Negative for pain at rest, pain with movement. 23:05 Skin: Negative for cellulitis, rash. 23:05 Neuro: Negative for altered mental status, headache, weakness. 23:05 All other systems are negative. Exam: 23:10 Constitutional: The patient appears in no acute distress, alert, awake, non-toxic, well cp developed, well nourished. 23:10 Head/Face: Normocephalic, atraumatic. cp 23:10 Chest/axilla: Inspection: normal. 23:10 Cardiovascular: Rate: normal. 23:10 Respiratory: the patient does not display signs of respiratory distress, Respirations: normal, no use of accessory muscles, no retractions, labored breathing, is not present. 23:10 Musculoskeletal/extremity: ROM: limited passive range of motion due to pain, in the right knee, Joints: All joints are normal except the right knee displays pain at rest, painful range of motion, swelling, tenderness. 23:10 Skin: cellulitis, is not appreciated, no rash present. Vital Signs: 22:13 BP 165 / 98; Pulse 69; Resp 18; Temp 98.4; Pulse Ox 99% on R/A; Weight 83.91 kg; Height em 5 ft. 5 in. (165.10 cm); Pain 04/23; 12/29 00:10 BP 145 / 92; Pulse 64; Resp 16; Pulse Ox 100% on R/A; [facility] 12/28 22:13 Body Mass Index 30.79 (83.91 kg, 165.10 cm) em MDM: 12/28 22:29 Patient medically screened. cp 22:50 Differential diagnosis: gout, cellulitis, septic joint. cp 23:42 Data reviewed: vital signs, nurses notes, and as a result, I will discharge patient. cp Administered Medications: 22:59 Drug: Hydrocodone-Acetaminophen (7.5 mg-325 mg) 1 tabs Route: PO; [facility] 12/29 00:12 Follow up: Response: No adverse reaction [facility] 12/28 22:59 Drug: TORadol (ketorolac) 30 mg Route: IM; Site: right deltoid; [facility] 12/29 00:12 Follow up: Response: No adverse reaction [facility] Disposition: 12/28/20 23:43 Discharged to Home. Impression: Pain in right knee. - Condition is Stable. - Discharge Instructions: Gout, Knee Pain. - Prescriptions for Tramadol 50 mg Oral Tablet - take 1 tablet by ORAL route every 8 hours as needed; 12 tablet. Medrol (Sunday) 4 mg Oral Tablets, Dose Pack - take 1 tablet by ORAL route as directed - follow package instructions; 1 packet. - Medication Reconciliation Form, Thank You Letter, Antibiotic Education, Prescription Opioid Use form. - Follow up: Private Physician; When: 2 - 3 days; Reason: Recheck today's complaints. - Problem is new. - Symptoms have improved. Signatures: Radhames Torres RN RN em Jp Marie PA PA cp Malcaba, Joseph RN RN jm8 Corrections: (The following items were deleted from the chart) 00:13 12/28 23:43 12/28/2020 23:43 Discharged to Home. Impression: Pain in right knee. jm8 Condition is Stable. Forms are Medication Reconciliation Form, Thank You Letter, Antibiotic Education, Prescription Opioid Use. Follow up: Private Physician; When: 2 - 3 days; Reason: Recheck today's complaints. Problem is new. Symptoms have improved. cp
--- NOTE | 2020-12-28 23:44 | ER ---
Nurse's Notes [facility] Name: Ramón Avilez Age: 60 yrs Sex: Male : 1960 Arrival Date: 12/28/2020 Time: 22:04 Bed 18 Private MD: Diagnosis: Pain in right knee Presentation: 12/28 22:13 Chief complaint: Patient states: right knee pain for 3 days, hx of gout, swelling noted em to the right knee. Coronavirus screen: Client denies travel out of the [place] in the last 14 days. Ebola Screen: Patient negative for fever greater than or equal to 101.5 degrees Fahrenheit, and additional compatible Ebola Virus Disease symptoms Patient denies exposure to infectious person. Patient denies travel to an Ebola-affected area in the 21 days before illness onset. No symptoms or risks identified at this time. Initial Sepsis Screen: Does the patient meet any 2 criteria? No. Patient's initial sepsis screen is negative. Does the patient have a suspected source of infection? No. Patient's initial sepsis screen is negative. Risk Assessment: Do you want to hurt yourself or someone else? Patient reports no desire to harm self or others. Onset of symptoms was December 28, 2020. 22:13 Method Of Arrival: Wheelchair em 22:13 Acuity: MENG 4 em Historical: - Allergies: 22:16 No Known Allergies; em - PMHx: 22:16 Diabetes - NIDDM; Gout; High Cholesterol; Hypertension; em - PSHx: 22:16 None; em - Immunization history:: Adult Immunizations up to date. - Social history:: Smoking status: Patient denies any tobacco usage or history of. Screenin:02 Abuse screen: Denies threats or abuse. Denies injuries from another. Nutritional jm8 screening: No deficits noted. Tuberculosis screening: No symptoms or risk factors identified. Fall Risk None identified. Assessment: 23:00 General: Appears in no apparent distress. comfortable, Behavior is calm, cooperative, jm8 appropriate for age. Pain: Complains of pain in right knee Pain currently is 10 out of 10 on a pain scale. Pain began 2-3 days ago. Noted to be grimacing, guarding. Neuro: No deficits noted. Cardiovascular: No deficits noted. Respiratory: No deficits noted. Airway is patent Trachea midline Respiratory effort is even, unlabored, Respiratory pattern is regular, symmetrical. GI: No deficits noted. No signs and/or symptoms were reported involving the gastrointestinal system. : No deficits noted. No signs and/or symptoms were reported regarding the genitourinary system. EENT: No deficits noted. No signs and/or symptoms were reported regarding the EENT system. Derm: No deficits noted. No signs and/or symptoms reported regarding the dermatologic system. Musculoskeletal: Reports pain in right knee swelling in right knee. Vital Signs: 22:13 BP 165 / 98; Pulse 69; Resp 18; Temp 98.4; Pulse Ox 99% on R/A; Weight 83.91 kg; Height em 5 ft. 5 in. (165.10 cm); Pain 10/10; 12/29 00:10 BP 145 / 92; Pulse 64; Resp 16; Pulse Ox 100% on R/A; jm8 12/28 22:13 Body Mass Index 30.79 (83.91 kg, 165.10 cm) em ED Course: 12/28 22:04 Patient arrived in ED. am4 22:14 Triage completed. em 22:16 Arm band placed on. em 22:25 Jp Marie PA is PHCP. cp 22:25 Mo Robles MD is Attending Physician. cp 23:02 Patient has correct armband on for positive identification. Bed in low position. Call jm8 light in reach. Side rails up X2. 12/29 00:11 No provider procedures requiring assistance completed. Patient did not have IV access jm8 during this emergency room visit. Administered Medications: 12/28 22:59 Drug: Hydrocodone-Acetaminophen (7.5 mg-325 mg) 1 tabs Route: PO; jm8 12/29 00:12 Follow up: Response: No adverse reaction 8 12/28 22:59 Drug: TORadol (ketorolac) 30 mg Route: IM; Site: right deltoid; jm8 12/29 00:12 Follow up: Response: No adverse reaction jm8 Outcome: 12/28 23:43 Discharge ordered by . cp 12/29 00:12 Discharged to home ambulatory. jm8 Condition: good Discharge instructions given to patient, Instructed on discharge instructions, follow up and referral plans. medication usage, Demonstrated understanding of instructions, follow-up care, medications, Prescriptions given X 2. 00:13 Patient left the ED. jm8 Signatures: Radhames Torres, RN RN em Jp Marie PA PA cp Martinez, Ashley am4 Malcaba, Joseph RN RN jm8 Corrections: (The following items were deleted from the chart) 12/28 22:52 22:13 Acuity: MENG 3 em em
== END 2020-12-29 00:13 | disposition home or self-care (01) ==
LOC: ER 21:58
DX: M25.561 Pain in right knee (principal); M10.9 Gout, unspecified; I10 Essential (primary) hypertension

== ENCOUNTER 2021-01-01 11:04 | Emergency (ER) | payer SELFPAY ==
[2021-01-01] MEDS ORDERED: HYDROCODONE/APAP 10/325 TAB ONE (12:39)
--- NOTE | 2021-01-01 12:55 | RAD REPORT ---
EXAM DESCRIPTION: RAD - Knee Right 3 View - 01/01/2021 12:39 pm CLINICAL HISTORY: PAIN, swelling, gout history COMPARISON: <Comparisons>none FINDINGS: No fracture, dislocation or periosteal reaction.Minimal joint effusion is present. Patella femoral joint space is slightly narrowed with mild patella marginal spurring. There are subtle erosi ve changes along the lateral margin lateral femoral condyle with adjacent soft tissue calcification. Calcifications are seen in the soft tissues along the medial margin medial tibial plateau. No patholo gic bone process. No foreign body in the soft tissues. IMPRESSION: Knee joint degenerative changes are present with findings consistent with mild or early gout. Clinical concerns for internal derangement or occult bony injury could be further assessed with MR im aging.
--- NOTE | 2021-01-01 12:56 | RAD REPORT ---
EXAM DESCRIPTION: RAD - Ankle Right 3 View - 01/01/2021 12:39 pm CLINICAL HISTORY: PAIN, history of gout COMPARISON: No comparisonsAnkle Left 3 View dated 08/11/2016 FINDINGS: No fracture, dislocation or periosteal reaction. No joint effusion seen. No joint space na rrowing. No erosive changes or abnormal periarticular soft tissue calcifications. No measurable plant ar spur. Soft tissue mild edema around the ankle joint. IMPRESSION: Patient has mild soft tissue swelling but no acute bone or joint finding. No specific fi nding for gout at the ankle.
--- NOTE | 2021-01-01 13:00 | RAD REPORT ---
EXAM DESCRIPTION: US - Extremity Venous Uni Ltd - 01/01/2021 12:44 pm CLINICAL HISTORY: PAIN COMPARISON: None. TECHNIQUE: Real-time sonographic evaluation of the right lower extremity deep venous systems was per formed. FINDINGS: Normal compressibility, flow augmentation, phasic flow and spontaneous flow are identified in the right lower extremity common femoral, superficial femoral, popliteal and posterior tibial vei ns. No intraluminal filling defects seen. IMPRESSION: No DVT in the right lower extremity.
--- NOTE | 2021-01-01 13:39 | ER ---
Nurse's Notes [facility] Name: Ramón Avilez Age: 60 yrs Sex: Male : 1960 Arrival Date: 01/01/2021 Time: 11:10 Bed 8 Private MD: Diagnosis: Gout Presentation: 01/01 11:17 Chief complaint: Patient states: "I have had right leg pain for 4 days and I was here jd3 recently saying I had gout, but the medicine that i was given is not helping. no injury. it is swelling and hurting from the knee down.". Coronavirus screen: At this time, the client does not indicate any symptoms associated with coronavirus-19. Ebola Screen: Patient negative for fever greater than or equal to 101.5 degrees Fahrenheit, and additional compatible Ebola Virus Disease symptoms. Initial Sepsis Screen: Does the patient meet any 2 criteria? No. Patient's initial sepsis screen is negative. Does the patient have a suspected source of infection? No. Patient's initial sepsis screen is negative. Risk Assessment: Do you want to hurt yourself or someone else? Patient reports no desire to harm self or others. Onset of symptoms was December 28, 2020. 11:17 Method Of Arrival: Ambulatory jd3 11:17 Acuity: MENG 3 jd3 Historical: - Allergies: 11:19 No Known Allergies; jd3 - Home Meds: 11:19 allopurinol 100 mg Oral tab 4 tabs once daily [Active]; amlodipine 10 mg tab 1 tab once jd3 daily [Active]; lisinopril 40 mg Oral tab 1 tab once daily [Active]; - PMHx: 11:19 Diabetes - NIDDM; Gout; High Cholesterol; Hypertension; jd3 - PSHx: 11:19 None; jd3 - Immunization history:: Adult Immunizations up to date. - Social history:: Smoking status: Patient denies any tobacco usage or history of. Screenin:23 Abuse screen: Denies threats or abuse. Denies injuries from another. Nutritional hb screening: No deficits noted. Tuberculosis screening: No symptoms or risk factors identified. Fall Risk None identified. Vital Signs: 11:19 BP 178 / 106; Pulse 77; Resp 17 S; Temp 97.9(TE); Pulse Ox 99% on R/A; Weight 83.91 kg jd3 (R); Height 5 ft. 5 in. (165.10 cm) (R); Pain 10/10; 11:19 Body Mass Index 30.79 (83.91 kg, 165.10 cm) jd3 ED Course: 11:10 Patient arrived in ED. mr 11:18 Triage completed. jd3 11:20 Arm band placed on. jd3 11:56 Billy Steinberg NP is PHCP. pm1 11:56 Sourav Fischer MD is Attending Physician. pm1 12:15 January Boykin, RN is Primary Nurse. tr6 12:38 Knee Right 3 View XRAY In Process Unspecified. EDMS 12:38 Ankle Right 3 View XRAY In Process Unspecified. EDMS 12:44 Extremity Venous Uni Ltd US In Process Unspecified. EDMS 14:14 No provider procedures requiring assistance completed. Patient did not have IV access ss during this emergency room visit. Administered Medications: 12:23 Drug: [place] (HYDROcodone-acetaminophen) 10 mg-325 mg 1 tabs Route: PO; tr6 13:00 Follow up: Response: No adverse reaction hb 13:49 Drug: Decadron (dexamethasone) 10 mg Route: IM; Site: right deltoid; tr6 Outcome: 13:38 Discharge ordered by MD. pm1 14:14 Discharged to home ambulatory, with family. ss 14:14 Condition: good 14:14 Discharge instructions given to patient, Instructed on discharge instructions, follow up and referral plans. medication usage, Demonstrated understanding of instructions, follow-up care, Prescriptions given X 2. 14:14 Patient left the ED. ss Signatures: Dispatcher [employer] [facility] Anjali VillarrealToña RN RN ss Billy Steinberg, [employer] pm1 No Cummins RN RN Blair Nelson RN RN jJanuary Washington RN RN tr6
--- NOTE | 2021-01-01 13:39 | EDPHYS ---
Physician Documentation [facility] Name: Ramón Avilez Age: 60 yrs Sex: Male : 1960 Arrival Date: 01/01/2021 Time: 11:10 Bed 8 Private MD: ED Physician Sourav Fischer HPI: 01/01 12:16 This 60 yrs old Male presents to ER via Ambulatory with complaints of Leg Pain.pm1 12:16 The patient presents with pain, that is acute. The complaints affect the right knee and pm1 right ankle. Context: The problem was sustained at an unknown site, resulted from Gout, the patient can partially bear weight, the patient is able to ambulate, Problem is a result from a previous injury: No. Onset: The symptoms/episode began/occurred 5 day(s) ago. Modifying factors: The symptoms are alleviated by Tramadol the symptoms are aggravated by movement, weight bearing. Associated signs and symptoms: Pertinent positives: swelling, Pertinent negatives fever, numbness, tingling. Treatment prior to arrival includes: prescription medications, oral steroid, Tramadol. Severity of symptoms: in the emergency department the symptoms are unchanged. The patient has been recently seen at the [facility], last week, for similar complaints was given a prescription for pain medications, Steroids and dx with gout. Historical: - Allergies: 11:19 No Known Allergies; jd3 - Home Meds: 11:19 allopurinol 100 mg Oral tab 4 tabs once daily [Active]; amlodipine 10 mg tab 1 tab once jd3 daily [Active]; lisinopril 40 mg Oral tab 1 tab once daily [Active]; - PMHx: 11:19 Diabetes - NIDDM; Gout; High Cholesterol; Hypertension; jd3 - PSHx: 11:19 None; jd3 - Immunization history:: Adult Immunizations up to date. - Social history:: Smoking status: Patient denies any tobacco usage or history of. ROS: 12:16 Constitutional: Negative for fever, chills, and weight loss, Cardiovascular: Negative pm1 for chest pain, palpitations, and edema, Respiratory: Negative for shortness of breath, cough, wheezing, and pleuritic chest pain. 12:16 Skin: Negative for injury, rash, and discoloration, Neuro: Negative for headache, weakness, numbness, tingling, and seizure. 12:16 MS/extremity: Positive for pain, of the right ankle and right knee, Negative for decreased range of motion, deformity, paresthesias, tingling. 12:16 All other systems are negative. Exam: 12:16 Constitutional: This is a well developed, well nourished patient who is awake, alert, pm1 and in no acute distress. Head/Face: Normocephalic, atraumatic. 12:16 Eyes: Exam is negative for acute changes, Extraocular movements: intact throughout, Conjunctiva: normal, Sclera: no acute changes, icterus, is not appreciated. 12:16 ENT: Mouth: Lips: normal, Oral mucosa: normal, pink and intact, moist. Vital Signs: 11:19 BP 178 / 106; Pulse 77; Resp 17 S; Temp 97.9(TE); Pulse Ox 99% on R/A; Weight 83.91 kg jd3 (R); Height 5 ft. 5 in. (165.10 cm) (R); Pain 10/10; 11:19 Body Mass Index 30.79 (83.91 kg, 165.10 cm) jd3 MDM: 12:14 Patient medically screened. pm1 13:37 Data reviewed: vital signs. Data interpreted: Pulse oximetry: on room air is 99 %. pm1 Interpretation: normal. Counseling: I had a detailed discussion with the patient and/or guardian regarding: the historical points, exam findings, and any diagnostic results supporting the discharge/admit diagnosis, radiology results, the need for outpatient follow up, to return to the emergency department if symptoms worsen or persist or if there are any questions or concerns that arise at home. 13:39 ED course: [place]. Patient given tramadol at last ER visit 4 days ago. Will pm1 prescribe tylenol #3, may improve pain control. 01/01 12:15 Order name: Knee Right 3 View XRAY; Complete Time: 13: pm1 01/01 12:15 Order name: Ankle Right 3 View XRAY; Complete Time: 13:01 pm1 01/01 12:15 Order name: Extremity Venous Uni Ltd ; Complete Time: 13:01 pm1 Administered Medications: 12:23 Drug: [place] (HYDROcodone-acetaminophen) 10 mg-325 mg 1 tabs Route: PO; tr6 13:00 Follow up: Response: No adverse reaction 13:49 Drug: Decadron (dexamethasone) 10 mg Route: IM; Site: right deltoid; tr6 Disposition: 01/01/21 13:38 Discharged to Home. Impression: Gout. - Condition is Stable. - Discharge Instructions: Gout. - Prescriptions for Medrol (Sunday) 4 mg Oral Tablets, Dose Pack - take 1 tablet by ORAL route as directed - follow package instructions; 1 packet. Tylenol- Codeine #3 300-30 mg Oral Tablet - take 2 tablets by ORAL route every 6 hours As needed; 20 tablet. - Medication Reconciliation Form, Thank You Letter, Antibiotic Education, Prescription Opioid Use form. - Follow up: Emergency Department; When: As needed; Reason: Worsening of condition. Follow up: Private Physician; When: 2 - 3 days; Reason: Recheck today's complaints, Continuance of care, Re-evaluation by your physician. - Problem is new. - Symptoms have improved. Signatures: Dispatcher [employer] EDMS Toña Metz RN RN ss Billy Steinberg NP SOCIAL WORK COORDINATOR pm1 Blair Nelson RN RN jd3 January Boykin RN RN tr6 No Cummins RN Corrections: (The following items were deleted from the chart) 14:14 13:38 01/01/2021 13:38 Discharged to Home. Impression: Gout. Condition is Stable. Forms ss are Medication Reconciliation Form, Thank You Letter, Antibiotic Education, Prescription Opioid Use. Follow up: Emergency Department; When: As needed; Reason: Worsening of condition. Follow up: Private Physician; When: 2 - 3 days; Reason: Recheck today's complaints, Continuance of care, Re-evaluation by your physician. Problem is new. Symptoms have improved. pm1
[2021-01-01] MEDS ORDERED: dexAMETHasone 10 MG/ML VIAL ONE (13:48)
[2021-01-01 14:23] VITALS: BP 178/106; TEMP 97.9; O2SAT 99
== END 2021-01-01 14:14 | disposition home or self-care (01) ==
LOC: ER 11:04
DX: M10.9 Gout, unspecified (principal); I10 Essential (primary) hypertension; E11.9 Type 2 diabetes mellitus without complications; E78.00 Pure hypercholesterolemia, unspecified
CPT/HCPCS: 93971; 96372; 99283; J1100

== ENCOUNTER 2021-08-12 13:07 | Emergency (ER) | payer OTHER, SELFPAY ==
--- OUTSIDE RECORDS SUMMARY | 2021-08-12 13:10 | XMS REPORT | Continuity of Care Document ---
:1960 Author Organization [facility] Address [address] [place] [address] Care Team Providers Name Role Phone MAICOL SAGASTUME Primary Care Physician Unavailable TYLER Attending Clinician Unavailable ANGELIA Attending Clinician Unavailable Johana SANTANA Attending Clinician Unavailable Selena CAMP Attending Clinician Unavailable Bakari SAGASTUME Attending Clinician Unavailable Dave MONTAGUE Attending Clinician Unavailable Payers Payer Name Policy Type Policy Number Effective Date Expiration Date S Formerly [facility] [id number] 2021 2078 [employer] 00:00:00 00:00:00 [facility] [id number] 0401-01-17 2021 [employer] 00:00:00 00:00:00 Problems This patient has no known problems. Allergies, Adverse Reactions, Alerts This patient has no known allergies or adverse reactions. Medications This patient has no known medications. Procedures This patient has no known procedures. Encounters Start End Encounter Admission Attending Care Care Encounter Source Date/Time Date/Time Type Type Clinicians Facility Department ID 2021-08-14 2021-08-14 Outpatient V[facility]OTT [facility] [id number] [place] 00:00:00 00:00:00 Health 2021-08-14 2021-08-14 Outpatient [facility] [id number] [place] 00:00:00 00:00:00 Health 2021-08-09 2021-08-09 Outpatient SAMANTHA GALAN [facility] [id number] [place] 00:00:00 00:00:00 Health 2021-07-10 2021-07-10 Outpatient EDILIA SANTANA [facility] [id number] [place] 13:22:00 14:31:57 Health 2021-07-10 2021-07-10 Outpatient EDILIA SANTANA [facility] [id number] [place] 11:53:53 11:55:49 Health 2021-07-10 2021-07-10 Outpatient EDILIA SANTANA [facility] [id number] [place] 00:00:00 00:00:00 [facility] 2021-06-01 2021-06-01 Outpatient [facility] [id number] [place] 00:00:00 00:00:00 [facility] 2021-05-19 2021-05-19 Outpatient CORY [facility] [id number] [place] 09:12:52 09:46:24 [facility] 2021-04-10 2021-04-10 Outpatient EDILIA SANTANA [facility] [id number] [place] 15:05:41 16:47:02 [facility] 2021-04-10 2021-04-10 Outpatient [facility] [id number] [place] 14:13:33 14:31:47 [facility] 2021-04-10 2021-04-10 [facility]patient [facility] [id number] [place] 00:00:00 00:00:00 MAICOL [facility] 2021-03-13 2021-03-13 [facility]patient [facility] [id number] [place] 16:56:28 16:56:38 [facility] 2021-03-03 2021-03-03 Outpatient OKUSANYA, [facility] [id number] [place] 09:34:34 09:37:07 [facility] 2021-03-03 2021-03-03 Outpatient OKUSANYA, [facility] [id number] [place] 08:30:14 09:15:43 [facility] 2021-03-03 2021-03-03 Outpatient OKUSANYA, [facility] [id number] [place] 00:00:00 00:00:00 MAICOL [facility] 2021-01-26 2021-01-26 Outpatient SINHA [facility] [id number] [place] 09:16:15 12:48:12 Grace MERARIA 2021-01-26 2021-01-26 Outpatient SINHA [facility] [id number] [place] 00:00:00 00:00:00 Grace MERA MARCOS 2020-12-20 2020-12-20 Outpatient [facility] [id number] [place] 08:44:12 08:46:19 MAICOL [facility] 2020-12-06 2020-12-06 Outpatient TANIKA [facility] [id number] [place] 09:51:21 14:38:26 MAICOL [facility] 2020-11-28 2020-11-28 Outpatient TANIKA, [facility] [id number] [place] 08:58:08 09:04:39 MAICOL [facility] 2020-11-28 2020-11-28 [facility] [id number] [place] 08:32:50 09:01:00 [facility] 2020-11-25 2020-11-25 [facility] [id number] [place] 15:42:40 16:58:09 [facility] 2020-09-13 2020-09-13 Outpatient [facility] [id number] [place] 00:00:00 00:00:00 [facility] 2020-09-10 2020-09-10 [facility] [id number] [place] 10:33:11 10:34:07 [facility] 2020-09-01 2020-09-01 Outpatient [facility] [id number] [place] 00:00:00 00:00:00 [facility] 2018-08-19 2018-08-19 Outpatient [facility] [id number] [place] 00:00:00 00:00:00 [facility] 2018-08-07 2018-08-07 Outpatient [facility] [id number] [place] 10:54:41 10:54:41 [facility] 2018-07-22 2018-07-22 Outpatient [facility] [id number] [place] 15:34:05 15:34:05 [facility] 2018-07-22 2018-07-22 Outpatient [facility] [id number] [place] 13:59:31 13:59:31 [facility] 2018-06-30 2018-06-30 Outpatient [facility] [id number] [place] 10:02:01 10:02:01 [facility] 2018-04-29 2018-04-29 Outpatient [facility] [id number] [place] 11:35:57 11:35:57 Health 2018-04-15 2018-04-15 Outpatient [facility] [id number] [place] 12:13:55 12:13:55 [facility] 2018-04-15 2018-04-15 Outpatient [facility] [id number] [place] 09:46:06 09:46:06 [facility] 2018-04-08 2018-04-08 Outpatient [facility] [id number] [place] 10:13:14 10:13:14 Health 2018-04-04 2018-04-04 Outpatient [facility] [id number] [place] 15:17:56 15:17:56 Health 2018-04-04 2018-04-04 Outpatient [facility] [id number] [place] 14:09:27 14:09:27 Health 2018-04-01 2018-04-01 Outpatient [facility] [id number] [place] 14:53:15 14:53:15 [facility] 2018-04-01 2018-04-01 Outpatient [facility] [id number] [place] 00:00:00 00:00:00 [facility] 2018-02-12 2018-02-12 Outpatient [facility] [id number] [place] 15:07:20 15:07:20 [facility] 2018-01-10 2018-01-10 Outpatient [facility] [id number] [place] 07:59:36 07:59:36 [facility] 2017-12-20 2017-12-20 Outpatient [facility] [id number] [place] 08:28:13 08:28:13 [facility] 2017-12-10 2017-12-10 Outpatient [facility] [id number] [place] 08:46:09 08:46:09 [facility] 2017-10-24 2017-10-24 Outpatient [facility] [id number] [place] 15:08:55 15:08:55 Health 2017-10-24 2017-10-24 Outpatient [facility] [id number] [place] 14:11:33 14:11:33 [facility] 2017-10-19 2017-10-19 Emergency [facility] [id number] [place] 09:24:38 09:24:38 Health 2017-09-23 2017-09-23 Outpatient [facility] [id number] [place] 14:03:01 14:03:01 Health 2017-08-12 2017-08-12 Outpatient [facility] [id number] [place] 11:54:45 11:54:45 Health 2017-08-12 2017-08-12 Outpatient [facility] [id number] [place] 11:33:56 11:33:56 Health Results This patient has no known results.
[2021-08-12] MEDS ORDERED: NA CHLORIDE 0.9% 500 ML ONE (14:00)
[2021-08-12 14:09] LABS: Absolute Lymphocytes (CBC) 1.8 K/uL (0.7-4.9); Hematocrit 42.9 % (39.6-49.0); MPV 9.1 fL (7.6-11.3)
[2021-08-12 14:20] LABS: Protime INR 1.04
[2021-08-12 14:22] LABS: Urine Blood Negative (Negative); Urine Glucose Negative (Negative); Urine Protein 1+ (Negative); Urine Specific Gravity 1.025 (1.005-1.030); Urine pH 6.5 (5.0-7.0)
--- NOTE | 2021-08-12 14:25 | RAD REPORT ---
EXAM DESCRIPTION: CT - Head Brain Wo Cont - 08/12/2021 2:16 pm CLINICAL HISTORY: Alteration of awareness/confusion COMPARISON: None TECHNIQUE: Computed axial tomography of the head was obtained. IV contrast was not requested. All CT scans are performed using dose optimization technique as appropriate and may include automated exposure control or mA/KV adjustment according to patient size. FINDINGS: An intracranial bleed is not seen . The ventricles are normal in caliber. No extra-axial fluid collection is noted. Fluid within the sinuses/ mastoids is not seen. Mild chronic right maxillary sinusitis IMPRESSION: No acute intracranial abnormality is seen. If patient's symptoms persist MRI of the bra in would be recommended.
[2021-08-12 14:35] LABS: Albumin 3.8 g/dL (3.4-5.0); Bilirubin Direct 0.1 mg/dL (0-0.2); Bilirubin Total 0.5 mg/dL (0.2-1.0); Magnesium 2.5 mg/dL (1.8-2.4); Protein, Total 7.8 g/dL (6.4-8.2); Troponin High Sensitivity 10.2 pg/mL (<58.9)
[2021-08-12 14:48] LABS: Potassium 2.8 mmol/L (3.5-5.1)
[2021-08-12] MEDS ORDERED: POTASSIUM CL SA 10 MEQ TAB PO ONE ×2 (15:01→15:47)
--- NOTE | 2021-08-12 15:18 | RAD REPORT ---
EXAM DESCRIPTION: Cheryl Single View08/12/2021 2:30 pm CLINICAL HISTORY: cough COMPARISON: 2018 FINDINGS: The lungs appear clear of acute infiltrate. The heart is mildly enlarged IMPRESSION: No acute abnormalities displayed
--- NOTE | 2021-08-12 15:36 | ER ---
Nurse's Notes [facility] Name: Ramón Avilez Age: 60 yrs Sex: Male : 1960 Arrival Date: 08/12/2021 Time: 13:10 Bed 12 Private MD: Diagnosis: Weakness;Hypokalemia;Altered mental status, unspecified-RESOLVED Presentation: 08/12 13:16 Chief complaint: Patient states: "I was changing my oil in my truck, went to take a vg1 shower and then changed my clothes and I thought I was talking to my and she said we didn't talk" Pt stated he thought he was having a conversation with and said they weren't. Denies h/a or injury to head. Pt states did not take BP medication today. Coronavirus screen: Vaccine status: Patient reports receiving the 2nd dose of the covid vaccine. Client denies travel out of the [place] in the last 14 days. Ebola Screen: Patient negative for fever greater than or equal to 101.5 degrees Fahrenheit, and additional compatible Ebola Virus Disease symptoms. Initial Sepsis Screen:. Risk Assessment: Do you want to hurt yourself or someone else? Patient reports no desire to harm self or others. Onset of symptoms was August 12, 2021. 13:16 Method Of Arrival: Ambulatory vg1 13:16 Acuity: MENG 3 vg1 13:26 Initial Sepsis Screen: Does the patient meet any 2 criteria? No. Patient's initial vg1 sepsis screen is negative. Does the patient have a suspected source of infection? No. Patient's initial sepsis screen is negative. Triage Assessment: 13:24 General: Appears comfortable, Behavior is calm, cooperative. Pain: Denies pain. Neuro: vg1 Level of Consciousness is awake, alert, obeys commands, Oriented to person, place, time, situation, [place]scre[place] Man are equal bilaterally Moves all extremities. Gait is steady, Speech is normal, Facial symmetry appears normal. Historical: - Allergies: 13:24 No Known Allergies; vg1 - Home Meds: 13:24 lisinopril 40 mg Oral tab 1 tab once daily [Active]; amlodipine 10 mg tab 1 tab once vg1 daily [Active]; allopurinol 100 mg Oral tab 4 tabs once daily [Active]; - PMHx: 13:24 Diabetes - NIDDM; Gout; High Cholesterol; Hypertension; vg1 - Immunization history:: Client reports receiving the 2nd dose of the Covid vaccine. - Social history:: Smoking status: Patient denies any tobacco usage or history of. Screenin:54 Abuse screen: Denies threats or abuse. Nutritional screening: No deficits noted. ll1 Tuberculosis screening: No symptoms or risk factors identified. Fall Risk IV access (20 points). Total Puente Fall Scale indicates No Risk (0-24 pts). Assessment: 14:25 Reassessment: No changes from previously documented assessment. Patient and/or family ll1 updated on plan of care and expected duration. Pain level reassessed. Patient is alert, oriented x 3, equal unlabored respirations, skin warm/dry/pink. 15:25 Reassessment: No changes from previously documented assessment. Patient and/or family ll1 updated on plan of care and expected duration. Pain level reassessed. Patient is alert, oriented x 3, equal unlabored respirations, skin warm/dry/pink. Vital Signs: 13:24 BP 187 / 109; Pulse 60; Resp 16; Temp 97.1; Pulse Ox 98% ; Weight 79.38 kg; Height 5 vg1 ft. 5 in. (165.10 cm); Pain 0/10; 14:04 BP 163 / 99; Pulse 57; ll1 15:54 BP 176 / 101; Pulse 52; Resp 15; Pulse Ox 98% ; Pain 0/10; ll1 13:24 Body Mass Index 29.12 (79.38 kg, 165.10 cm) vg1 ED Course: 13:10 Patient arrived in ED. rg4 13:24 Triage completed. vg1 13:24 Arm band placed on. vg1 13:31 Deep Jacobson, DAVID is Primary Nurse. ll1 13:34 Patient placed in an exam room, on a stretcher. ll1 13:51 Jp Wilks MD is Attending Physician. [facility] 13:51 Initial lab(s) drawn, by wy, held in ED. EKG done, by ED staff, reviewed by Jp Wilks MD. Inserted saline lock: 20 gauge in right antecubital area, using aseptic technique. Blood collected. 13:52 Patient has correct armband on for positive identification. Bed in low position. Call 5 light in reach. wrap yarn sorter on. Pulse ox on. NIBP on. 13:55 Basic Metabolic Panel Sent. mh5 13:55 Basic Metabolic Panel Sent. 5 13:55 CBC with Diff Sent. 5 13:55 LFT's Sent. 5 13:55 Magnesium Sent. 5 13:56 CBC with Diff Sent. 5 13:56 LFT's Sent. 5 13:56 Magnesium Sent. 5 13:56 NT PRO-BNP Sent. 5 13:56 PT-INR Sent. 5 13:56 Troponin HS Sent. mh5 14:02 Basic Metabolic Panel Sent. mh5 14:17 CT Head Brain wo Cont In Process Unspecified. EDMS 14:29 XRAY Chest (1 view) In Process Unspecified. EDMS 14:43 Notified ED physician of a critical lab result(s). Potassium 2.8. ll1 15:35 Rayshawn Galindo MD is Referral Physician. [facility] 15:54 No provider procedures requiring assistance completed. IV discontinued, intact, ll1 bleeding controlled, No redness/swelling at site. Pressure dressing applied. Administered Medications: 14:04 Drug: NS 0.9% 500 ml Route: IV; Rate: bolus; Site: right antecubital; ll1 15:52 Follow up: Response: No adverse reaction; IV Status: Completed infusion; IV Intake: ll1 250ml 15:00 Drug: Potassium Effervescent Tablet 50 mEq Route: PO; ll1 15:53 Follow up: Response: No adverse reaction ll1 15:47 Drug: Potassium Effervescent Tablet 25 mEq Route: PO; ll1 15:53 Follow up: Response: No adverse reaction ll1 15:47 Drug: Aspirin Chewable Tablet 162 mg Route: PO; ll1 15:53 Follow up: Response: No adverse reaction ll1 Intake: 15:52 IV: 250ml; Total: 250ml. ll1 Outcome: 15:35 Discharge ordered by . seema 15:55 Discharged to home ambulatory. ll1 15:55 Condition: stable 15:55 Discharge instructions given to patient, Instructed on discharge instructions, follow up and referral plans. Demonstrated understanding of instructions, follow-up care. 15:55 Patient left the ED. ll1 Signatures: Dispatcher [employer] EDNV Jp Wilks MD MD cha Garcia, Rubi 4 Joanne Arce Nicole Ramirez, RN RN vg1 Deep Jacobson RN RN ll1 Corrections: (The following items were deleted from the chart) 13:27 13:24 Pulse 60bpm; Resp 16bpm; Pulse Ox 98%; Temp 97.1F; 79.38 kg; Height 5 ft. 5 in.; vg1 BMI: 29.1; Pain 0/10; vg1 13:30 13:16 Chief complaint: Patient states: "I was changing my oil in my truck, went to take vg1 a shower and then changed my clothes and I thought I was talking to my and she said we didn't talk" Pt stated he thought he was having a conversation with and said they weren't. Denies h/a or injury to head. vg1 13:34 13:24 Neuro: Level of Consciousness is awake, alert, obeys commands, Oriented to vg1 person, place, time, situation, vg1
--- NOTE | 2021-08-12 15:36 | EDPHYS ---
Physician Documentation [facility] Name: Ramón Avilez Age: 60 yrs Sex: Male : 1960 Arrival Date: 08/12/2021 Time: 13:10 Bed 12 Private MD: ED Physician Jp Wilks HPI: 08/12 15:28 This 60 yrs old Male presents to ER via Ambulatory with complaints of seema Hallucinations. 15:28 The patient presents with MISTAKEN NOT CONFUSED. Onset: The symptoms/episode seema began/occurred just prior to arrival. Possible causes: CVA or TIA, alcohol, low blood sugar. Associated signs and symptoms: Pertinent positives: confusion. Current symptoms: In the emergency department the patient's symptoms have resolved, the patient is alert and fully oriented, has normal speech, has normal responsiveness, has no confusion. Patient's baseline: Neuro: alert and fully oriented. The patient has not experienced similar symptoms in the past. Historical: - Allergies: 13:24 No Known Allergies; vg1 - Home Meds: 13:24 lisinopril 40 mg Oral tab 1 tab once daily [Active]; amlodipine 10 mg tab 1 tab once vg1 daily [Active]; allopurinol 100 mg Oral tab 4 tabs once daily [Active]; - PMHx: 13:24 Diabetes - NIDDM; Gout; High Cholesterol; Hypertension; vg1 - Immunization history:: Client reports receiving the 2nd dose of the Covid vaccine. - Social history:: Smoking status: Patient denies any tobacco usage or history of. ROS: 15:31 Constitutional: Negative for fever, chills, and weight loss, Eyes: Negative for injury, seema pain, redness, and discharge, ENT: Negative for injury, pain, and discharge, Neck: Negative for injury, pain, and swelling, Cardiovascular: Negative for chest pain, palpitations, and edema, Respiratory: Negative for shortness of breath, cough, wheezing, and pleuritic chest pain, Abdomen/GI: Negative for abdominal pain, nausea, vomiting, diarrhea, and constipation, Back: Negative for injury and pain, : Negative for injury, bleeding, discharge, and swelling, MS/Extremity: Negative for injury and deformity, Skin: Negative for injury, rash, and discoloration, Neuro: Negative for headache, weakness, numbness, tingling, and seizure, Psych: Negative for depression, anxiety, suicide ideation, homicidal ideation, and hallucinations, Allergy/Immunology: Negative for hives, rash, and allergies, Endocrine: Negative for neck swelling, polydipsia, polyuria, polyphagia, and marked weight changes, Hematologic/Lymphatic: Negative for swollen nodes, abnormal bleeding, and unusual bruising. Exam: 15:31 Constitutional: This is a well developed, well nourished patient who is awake, alert, seema and in no acute distress. Head/Face: Normocephalic, atraumatic. Eyes: Pupils equal round and reactive to light, extra-ocular motions intact. Lids and lashes normal. Conjunctiva and sclera are non-icteric and not injected. Cornea within normal limits. Periorbital areas with no swelling, redness, or edema. ENT: Nares patent. No nasal discharge, no septal abnormalities noted. Tympanic membranes are normal and external auditory canals are clear. Oropharynx with no redness, swelling, or masses, exudates, or evidence of obstruction, uvula midline. Mucous membranes moist. Neck: Trachea midline, no thyromegaly or masses palpated, and no cervical lymphadenopathy. Supple, full range of motion without nuchal rigidity, or vertebral point tenderness. No Meningismus. Chest/axilla: Normal chest wall appearance and motion. Nontender with no deformity. No lesions are appreciated. Cardiovascular: Regular rate and rhythm with a normal S1 and S2. No gallops, murmurs, or rubs. Normal PMI, no JVD. No pulse deficits. Respiratory: Lungs have equal breath sounds bilaterally, clear to auscultation and percussion. No rales, rhonchi or wheezes noted. No increased work of breathing, no retractions or nasal flaring. Abdomen/GI: Soft, non-tender, with normal bowel sounds. No distension or tympany. No guarding or rebound. No evidence of tenderness throughout. Back: No spinal tenderness. No costovertebral tenderness. Full range of motion. Male : Normal genitalia with no discharge or lesions. Skin: Warm, dry with normal turgor. Normal color with no rashes, no lesions, and no evidence of cellulitis. MS/ Extremity: Pulses equal, no cyanosis. Neurovascular intact. Full, normal range of motion. Neuro: Awake and alert, GCS 15, oriented to person, place, time, and situation. Cranial nerves II-XII grossly intact. Motor strength 5/5 in all extremities. Sensory grossly intact. Cerebellar exam normal. Normal gait. Psych: Awake, alert, with orientation to person, place and time. Behavior, mood, and affect are within normal limits. 15:36 ECG was reviewed by the Attending Physician. [facility] Vital Signs: 13:24 BP 187 / 109; Pulse 60; Resp 16; Temp 97.1; Pulse Ox 98% ; Weight 79.38 kg; Height 5 vg1 ft. 5 in. (165.10 cm); Pain 0/10; 14:04 BP 163 / 99; Pulse 57; ll1 15:54 BP 176 / 101; Pulse 52; Resp 15; Pulse Ox 98% ; Pain 0/10; ll1 13:24 Body Mass Index 29.12 (79.38 kg, 165.10 cm) vg1 MDM: 13:51 Patient medically screened. seema 15:31 Differential Diagnosis altered mental status. Differential Diagnosis: CVA, electrolyte seema abnormality, alcohol intoxication, hypoglycemia, intracranial bleed, seizure, volume depletion. Data reviewed: vital signs, nurses notes, lab test result(s), EKG, radiologic studies, CT scan, plain films. Data interpreted: nurse monitoring: rate is 57 beats/min, rhythm is regular, Pulse oximetry: on room air is 98 %. Test interpretation: by ED physician or midlevel provider: ECG, plain radiologic studies. Counseling: I had a detailed discussion with the patient and/or guardian regarding: the historical points, exam findings, and any diagnostic results supporting the discharge/admit diagnosis, lab results, radiology results, the need for outpatient follow up, for definitive care, a family practitioner, a neurologist. 08/12 13:41 Order name: Glucose, Ancillary Testing; Complete Time: 13:52 EDLA 08/12 13:54 Order name: Basic Metabolic Panel [facility] 08/12 13:54 Order name: CBC with Diff; Complete Time: 14:49 [facility] 08/12 13:54 Order name: LFT's; Complete Time: 14:49 [facility] 08/12 13:54 Order name: Magnesium; Complete Time: 14:49 [facility] 08/12 13:54 Order name: NT PRO-BNP; Complete Time: 14:49 [facility] 08/12 13:54 Order name: PT-INR; Complete Time: 14:49 [facility] 08/12 13:54 Order name: Troponin HS; Complete Time: 14:49 [facility] 08/12 13:54 Order name: XRAY Chest (1 view); Complete Time: 15:34 [facility] 08/12 13:54 Order name: CT Head Brain wo Cont; Complete Time: 14:49 [facility] 08/12 13:55 Order name: Basic Metabolic Panel; Complete Time: 14:49 EDLA 08/12 14:22 Order name: Urine Dipstick-Ancillary; Complete Time: 14:49 [facility] 08/12 13:54 Order name: EKG; Complete Time: 13:55 [facility] 08/12 13:54 Order name: Cardiac monitoring; Complete Time: 13:56 [facility] 08/12 13:54 Order name: EKG - Nurse/Tech; Complete Time: 13:56 [facility] 08/12 13:54 Order name: IV Saline Lock; Complete Time: 13:56 [facility] 08/12 13:54 Order name: Labs collected and sent; Complete Time: 13:56 [facility] 08/12 13:54 Order name: O2 Per Protocol; Complete Time: 13:56 [facility] 08/12 13:54 Order name: O2 Sat Monitoring; Complete Time: 13:56 [facility] 08/12 13:54 Order name: Urine Dipstick-Ancillary (obtain specimen); Complete Time: 14:26 [facility] 08/12 14:50 Order name: PO challenge: JUICE; Complete Time: 15:00 [facility] EC:36 Rate is 56 beats/min. Rhythm is regular. QRS [place] is Normal. AR interval is normal. QRS seema interval is normal. QT interval is normal. No Q waves. T waves are Normal. No ST changes noted. Clinical impression: LVH and Sinus bradycardia. Interpreted by me. Reviewed by me. Administered Medications: 14:04 Drug: NS 0.9% 500 ml Route: IV; Rate: bolus; Site: right antecubital; ll1 15:52 Follow up: Response: No adverse reaction; IV Status: Completed infusion; IV Intake: ll1 250ml 15:00 Drug: Potassium Effervescent Tablet 50 mEq Route: PO; ll1 15:53 Follow up: Response: No adverse reaction ll1 15:47 Drug: Potassium Effervescent Tablet 25 mEq Route: PO; ll1 15:53 Follow up: Response: No adverse reaction ll1 15:47 Drug: Aspirin Chewable Tablet 162 mg Route: PO; ll1 15:53 Follow up: Response: No adverse reaction ll1 Disposition Summary: 08/12/21 15:35 Discharge Ordered Location: Home seema Problem: new seema Symptoms: have improved seema Condition: Stable seema Diagnosis - Weakness seema - Hypokalemia seema - Altered mental status, unspecified - RESOLVED seema Followup: seema - With: Private Physician - When: 2 - 3 days - Reason: Recheck today's complaints, Continuance of care, Re-evaluation by your physician Followup: seema - With: Rayshawn Galindo MD - When: 2 - 3 days - Reason: Recheck today's complaints, Re-evaluation by your physician Discharge Instructions: - Discharge Summary Sheet seema - Confusion seema - Potassium Content of Foods seema - Weakness seema - Weakness, Qide-ng-Kfhl seema - Aspirin and Your Heart seema - Hypokalemia seema Forms: - Medication Reconciliation Form seema - Thank You Letter seema - Antibiotic Education seema - Prescription Opioid Use seema Signatures: Dispatcher [employer] Jp Juarez MD MD cha Garcia, Victoria RN RN vg1 Deep Jacobson RN RN ll1
[2021-08-12] MEDS ORDERED: ASPIRIN 81 MG CHEWABLE TABLET ONE (15:47)
[2021-08-12 16:06] VITALS: TEMP 97.1; O2SAT 98
[2021-08-12 16:08] VITALS: BP 176/101
== END 2021-08-12 15:55 | disposition home or self-care (01) ==
LOC: ER 13:07
DX: E87.6 Hypokalemia (principal); E11.9 Type 2 diabetes mellitus without complications; I10 Essential (primary) hypertension
CPT/HCPCS: 96361; 93005; 85025; 80048; 36415; 83735; 85610; 82947; 80076; 81003; 84484; 83880; 70450; 71045; 96360; 99284; J7040

== ENCOUNTER 2022-03-07 20:54 | Emergency (ER) | payer OTHER ==
--- OUTSIDE RECORDS SUMMARY | 2022-03-07 20:57 | XMS REPORT | Continuity of Care Document ---
:1960 Author Organization [facility] t Address [address] [place] [address] Care Team Providers Name Role Phone MAICOL SAGASTUME Primary Care Physician Unavailable JESSIE CORNEJO Attending Clinician Unavailable MAICOL SAGASTUME Attending Clinician Unavailable REN LONGO Attending Clinician Unavailable AZIZA JANG Attending Clinician Unavailable SAMANTHA GALAN Attending Clinician Unavailable JUJU MENDEZ Attending Clinician Unavailable MG LUTZ Attending Clinician Unavailable EDILIA SANTANA Attending Clinician Unavailable ROSEANNE CAMP Attending Clinician Unavailable MARCOS MONTAGUE Attending Clinician Unavailable Payers Payer Name Policy Type Policy Number Effective Date Expiration Date [facility] [id number] 2021 [facility] [employer] 00:00:00 [facility] [id number] 3722-01-17 2021 [employer] 00:00:00 00:00:00 Problems This patient has no known problems. Allergies, Adverse Reactions, Alerts This patient has no known allergies or adverse reactions. Medications This patient has no known medications. Procedures This patient has no known procedures. Encounters Start End Encounter Admission Attending Care Care Encounter Source Date/Time Date/Time Type Type Clinicians Facility Department ID 2022-02-27 2022-02-27 Outpatient CLEMENTE [facility] [id number] [place] 12:33:31 14:12[facility]16 [facility] [id number] [place] 06:59:32 10:11:25 MAICOL Quintana 2022-01-10 2022-01-10 [facility] [id number] [place] 00:00:00 00:00:00 MAICOL [facility] 2022-01-04 2022-01-04 Outpatient INADAM, [facility] [id number] [place] 00:00:00 00:00:00 REN [facility] 2021-12-07 2021-12-07 Outpatient OKUSANYA, [facility] [id number] [place] 07:03:43 15:28:45 [facility] 2021-11-29 2021-11-29 Outpatient OKUSANYA, [facility] [id number] [place] 09:19:32 09:30:15 [facility] 2021-11-23 2021-11-23 Outpatient AZIZA JANG [facility] [id number] [place] 07:59:04 10:31:14 [facility] 2021-10-25 2021-10-25 Outpatient SIENAU [facility] [id number] [place] 00:00:00 00:00:00 [facility] 2021-10-12 2021-10-12 Outpatient OKUSANYA, [facility] [id number] [place] 14:28:53 14:34:31 [facility] 2021-10-12 2021-10-12 Outpatient 3 [facility] [id number] [place] 14:28:53 14:34:31 [facility] 2021-10-12 2021-10-12 Outpatient OKUSANYA, [facility] [id number] [place] 13:29:51 14:23:51 [facility] 2021-10-12 2021-10-12 Outpatient OKUSANYA, [facility] [id number] [place] 13:05:20 13:09:13 [facility] 2021-10-12 2021-10-12 Outpatient OKUSANYA, [facility] [id number] [place] 00:00:00 00:00:00 [facility] 2021-10-12 2021-10-12 Outpatient OKUSANYA, [facility] [id number] [place] 00:00:00 00:00:00 [facility] 2021-09-11 2021-09-11 Outpatient VANESSA, [facility] [id number] [place] 14:32:23 17:34:43 [facility] 2021-09-11 2021-09-11 Outpatient [facility] [id number] [place] 13:19:15 13:21:29 [facility] 2021-09-11 2021-09-11 Outpatient JONES-AMBROSES [facility] [id number] [place] 00:00:00 00:00:00 MG Vaughn [facility] 2021-08-14 2021-08-14 Outpatient JONES-AMBROSES [facility] [id number] [place] 14:28:44 17:59:46 MMG [facility] 2021-08-14 2021-08-14 Outpatient [facility] [id number] [place] 14:04:25 14:06:35 [facility] 2021-08-09 2021-08-09 Outpatient SIENA GALANU [facility] [id number] [place] 00:00:00 00:00:00 [facility] 2021-07-10 2021-07-10 Outpatient EDILIA SANTANA [facility] [id number] [place] 13:22:00 14:31:57 [facility] 2021-07-10 2021-07-10 Outpatient EDILIA SANTANA [facility] [id number] [place] 11:53:53 11:55:49 [facility] 2021-07-10 2021-07-10 Outpatient EDILIA SANTANA [facility] [id number] [place] 00:00:00 00:00:00 [facility] 2021-06-01 2021-06-01 Outpatient [facility] [id number] [place] 00:00:00 00:00:00 [facility] 2021-05-19 2021-05-19 Outpatient CORY [facility] [id number] [place] 09:12:52 09:46:24 ROSEANNE GREY [facility] 2021-04-10 2021-04-10 Outpatient EDILIA SANTANA [facility] [id number] [place] 15:05:41 16:47:02 [facility] 2021-04-10 2021-04-10 Outpatient [facility] [id number] [place] 14:13:33 14:31:47 [facility] 2021-04-10 2021-04-10 [facility] [id number] [place] 00:00:00 00:00:00 MAICOL Quintana 2021-03-13 2021-03-13 [facility] [id number] [place] 16:56:28 16:56:38 MAICOL Heal 2021-03-03 2021-03-03 [facility] [id number] [place] 09:34:34 09:37:07 MAICOL [facility] 2021-03-03 2021-03-03 Outpatient OKUSANYA, [facility] [id number] [place] 08:30:14 09:15:43 MAICOL [facility] 2021-03-03 2021-03-03 Outpatient OKUSANYA, [facility] [id number] [place] 00:00:00 00:00:00 [facility] 2021-01-26 2021-01-26 Outpatient SINHA [facility] [id number] [place] 09:16:15 12:48:12 Grace MERA 2021-01-26 2021-01-26 Outpatient SINHA [facility] [id number] [place] 00:00:00 00:00:00 Grace MERARIA 2020-12-20 2020-12-20 Outpatient OKUSANYA, [facility] [id number] [place] 08:44:12 08:46:19 [facility] 2020-12-06 2020-12-06 Outpatient OKUSANYA, [facility] [id number] [place] 09:51:21 14:38:26 [facility] 2020-11-28 2020-11-28 Outpatient OKUSANYA, [facility] [id number] [place] 08:58:08 09:04:39 [facility] 2020-11-28 2020-11-28 Outpatient OKUSANYA, [facility] [id number] [place] 08:32:50 09:01:00 [facility] 2020-11-25 2020-11-25 Outpatient OKUSANYA, [facility] [id number] [place] 15:42:40 16:58:09 [facility] 2020-09-13 2020-09-13 Outpatient [facility] [id number] [place] 00:00:00 00:00:00 [facility] 2020-09-10 2020-09-10 Outpatient OKUSANYA, [facility] [id number] [place] 10:33:11 10:34:07 [facility] 2020-09-01 2020-09-01 Outpatient [facility] [id number] [place] 00:00:00 00:00:00 [facility] 2020-08-02 2020-08-02 Outpatient [facility] [id number] [place] 00:00:00 00:00:00 [facility] 2018-08-19 2018-08-19 Outpatient [facility] [id number] [place] 00:00:00 00:00:00 [facility] 2018-08-07 2018-08-07 Outpatient [facility] [id number] [place] 10:54:41 10:54:41 [facility] 2018-07-22 2018-07-22 Outpatient [facility] [id number] [place] 15:34:05 15:34:05 [facility] 2018-07-22 2018-07-22 Outpatient [facility] [id number] [place] 13:59:31 13:59:31 [facility] 2018-06-30 2018-06-30 Outpatient [facility] [id number] [place] 10:02:01 10:02:01 [facility] 2018-04-29 2018-04-29 Outpatient [facility] [id number] [place] 11:35:57 11:35:57 [facility] 2018-04-15 2018-04-15 Outpatient [facility] [id number] [place] 12:13:55 12:13:55 [facility] 2018-04-15 2018-04-15 Outpatient [facility] [id number] [place] 09:46:06 09:46:06 [facility] 2018-04-08 2018-04-08 Outpatient [facility] [id number] [place] 10:13:14 10:13:14 [facility] 2018-04-04 2018-04-04 Outpatient [facility] [id number] [place] 15:17:56 15:17:56 [facility] 2018-04-04 2018-04-04 Outpatient [facility] [id number] [place] 14:09:27 14:09:27 [facility] 2018-04-01 2018-04-01 Outpatient [facility] [id number] [place] 14:53:15 14:53:15 [facility] 2018-04-01 2018-04-01 Outpatient [facility] [id number] [place] 00:00:00 00:00:00 [facility] 2018-02-12 2018-02-12 Outpatient [facility] [id number] [place] 15:07:20 15:07:20 [facility] 2018-01-10 2018-01-10 Outpatient [facility] [id number] [place] 07:59:36 07:59:36 [facility] 2017-12-20 2017-12-20 Outpatient [facility] [id number] [place] 08:28:13 08:28:13 [facility] 2017-12-10 2017-12-10 Outpatient [facility] [id number] [place] 08:46:09 08:46:09 [facility] 2017-10-24 2017-10-24 Outpatient [facility] [id number] [place] 15:08:55 15:08:55 Health 2017-10-24 2017-10-24 Outpatient [facility] [id number] [place] 14:11:33 14:11:33 Health 2017-10-19 2017-10-19 Emergency [facility] [id number] [place] 09:24:38 09:24:38 Health 2017-09-23 2017-09-23 Outpatient [facility] [id number] [place] 14:03:01 14:03:01 Health 2017-08-12 2017-08-12 Outpatient [facility] [id number] [place] 11:54:45 11:54:45 Health 2017-08-12 2017-08-12 Outpatient [facility] [id number] [place] 11:33:56 11:33:56 Health Results Test Description Test Time Test Comments Results Result Comments Source HIV 1+2 Ab+HIV1 p24 Ag SerPl Ql [place] 2021-10-12 21:33:14 Test Item Value Reference Range Interpretation Comme nts HIV 1+2 Ab+HIV1 p24 Ag SerPl Ql [place] (test code = 27405-4) NEGATIVE Negative SARS-CoV-2 (COVID-19), RT-PCR/[id number] 10:54:39 Test Item Value Reference Interpretation Comments Range SARS-CoV-2 POSITIVE SEE NOTE A SARS-CoV-2 RNA INTERPRETATION DETECTEDPosit leeann results (test code = 79330) are jv cative of the presence of LUNA S-CoV-2 RNA;clinical co rrelation with patient hi story and other diagnosticinfor mation is necessary to de termine patient infecti on status.Positive results do not rule out bacterial infection or co-infectionwit h other viruses. Positi ve and negative predic tive values oftestin g are highly dependen t on prevalence. SOURCE (test code = NOT SPECIFIED Note: [place] [address]) Dave Ashlie Page l-Time RT-PCR. The exp ected result or refer ence range is NEGATIVE (No t Detected). For more information reg arding COVID-19 testin g to include clinicalinforma tion, methodology det ail, intended use, F DA authorization andrecommended fact sheets for mona ents or healthcare prov iders, see NewTest Announc ement: SARS-CoV-2 (COV ID-19) by NAAT at URL bel ow (note,fact shee ts are provided by met rossy given in report:https:// www.EVOFEMcom/clinician s/client-c ommunications/ Alternatively, see downloadable PD F fact sheet at:https://www. [employer] debo/SANLZ-31-KK-P CR UNLESS OTHERWISE INDIC ATED, ALL TESTING PERFORM ED [facility], [facility]. [address] [place] [address] [id number] LABORATORY DIRE CTOR: Debo NOVA. CLIA NUMBER [id number] CAP ACCREDITATION N O. [id number]
[2022-03-07] MEDS ORDERED: HYDROCODONE/APAP 10/325 TAB ONE (22:51)
[2022-03-07] MEDS ORDERED: KETOROLAC 30 MG/ML INJ ONE (22:52)
[2022-03-07] MEDS ORDERED: COLCHICINE 0.6 MG TAB ONE (22:52)
--- NOTE | 2022-03-07 23:19 | ER ---
Nurse's Notes [facility] Name: Ramón Avilez Age: 61 yrs Sex: Male : 1960 Arrival Date: 03/07/2022 Time: 21:38 Bed 12 Private MD: Diagnosis: Gout, unspecified Presentation: 03/07 21:46 Chief complaint: Patient states: I have gout and I started having that kind of pain in bm7 my elbow a few days ago. Coronavirus screen: At this time, the client does not indicate any symptoms associated with coronavirus-19. Ebola Screen: No symptoms or risks identified at this time. Initial Sepsis Screen: Does the patient meet any 2 criteria? No. Patient's initial sepsis screen is negative. Does the patient have a suspected source of infection? No. Patient's initial sepsis screen is negative. Risk Assessment: Do you want to hurt yourself or someone else? Patient reports no desire to harm self or others. Onset of symptoms was March 05, 2022. 21:46 Method Of Arrival: Ambulatory bm7 21:46 Acuity: MENG 4 bm7 Triage Assessment: 21:46 General: Appears in no apparent distress. uncomfortable, Behavior is calm, cooperative, bm7 appropriate for age. Pain: Complains of pain in left elbow Pain does not radiate. EENT: No deficits noted. No signs and/or symptoms were reported regarding the EENT system. Neuro: No deficits noted. Cardiovascular: No deficits noted. Respiratory: No deficits noted. GI: No deficits noted. No signs and/or symptoms were reported involving the gastrointestinal system. : No deficits noted. No signs and/or symptoms were reported regarding the genitourinary system. Derm: No deficits noted. No signs and/or symptoms reported regarding the dermatologic system. Musculoskeletal: Reports pain in left elbow. Historical: - Allergies: 21:46 No Known Allergies; bm7 - Home Meds: 21:46 allopurinol 100 mg Oral tab 4 tabs once daily [Active]; amlodipine 10 mg tab 1 tab once bm7 daily [Active]; lisinopril 40 mg Oral tab 1 tab once daily [Active]; - PMHx: 21:46 Diabetes - NIDDM; Gout; High Cholesterol; Hypertension; bm7 - PSHx: 21:46 None; bm7 - Immunization history:: Adult Immunizations up to date, Client reports receiving the 2nd dose of the Covid vaccine, Client reports receiving the 1st dose of the Covid vaccine. - Social history:: Smoking status: Patient denies any tobacco usage or history of. Screenin:15 Abuse screen: Denies threats or abuse. Denies injuries from another. Nutritional kb3 screening: No deficits noted. Tuberculosis screening: No symptoms or risk factors identified. Fall Risk None identified. Assessment: 22:15 General: Received care of pt from triage. Pt is AAO x4. States left elbow pain, kb3 redness, and swelling x2 days with a history of gout in his knees.. 22:15 Musculoskeletal: Swelling present in left elbow redness in left elbow Tenderness kb3 present in left elbow. Vital Signs: 21:45 BP 147 / 93; Pulse 71; Resp 16; Temp 97.7(TE); Pulse Ox 98% on R/A; Weight 78.02 kg bm7 (R); Height 5 ft. 5 in. (165.10 cm); Pain 10/10; 23:31 BP 145 / 85; Pulse 75; Resp 18; Pulse Ox 100% ; Pain 4/10; kb3 21:45 Body Mass Index 28.62 (78.02 kg, 165.10 cm) bm7 ED Course: 21:38 Patient arrived in ED. jj6 21:46 Triage completed. bm7 22:00 Arm band placed on right wrist. kb3 22:14 [facility]ley Lyle F[facility]-C [facility]. kb 22:14 Jp Wilks MD is Attending Physician. kb 22:15 Patient has correct armband on for positive identification. Bed in low position. Call kb3 light in reach. Side rails up X 1. 22:15 No provider procedures requiring assistance completed. Patient did not have IV access kb3 during this emergency room visit. 22:34 Jacquelin Harvey, RN is Primary Nurse. kb3 Administered Medications: 22:47 Drug: [place] (HYDROcodone-acetaminophen) 10 mg-325 mg 1 tabs Route: PO; kb3 23:14 Follow up: Response: No adverse reaction; Pain is decreased kb3 22:48 Drug: Ketorolac 30 mg Route: IM; Site: left ventrogluteal; kb3 23:14 Follow up: Response: No adverse reaction; Pain is decreased kb3 22:48 Drug: Colcrys (colchicine) 0.6 mg Route: PO; kb3 23:14 Follow up: Response: No adverse reaction; Pain is decreased kb3 Medication: 22:15 VIS not applicable for this client. kb3 Outcome: 23:19 Discharge ordered by . kb 23:31 Discharged to home ambulatory. kb3 23:31 Condition: improved 23:31 Discharge instructions given to patient, Instructed on discharge instructions, follow up and referral plans. medication usage, Demonstrated understanding of instructions, follow-up care, medications. 23:32 Patient left the ED. kb3 Signatures: Marley Lyle, DESIGN MAKER-C DESIGN MAKER-Sadie Holcomb, RN RN bm7 Sonja Swiftj6 Jacquelin Harvey, RN RN kb3
--- NOTE | 2022-03-07 23:19 | EDPHYS ---
Physician Documentation [facility] Name: Ramón Avilez Age: 61 yrs Sex: Male : 1960 Arrival Date: 03/07/2022 Time: 21:38 Bed 12 Private MD: ED Physician Jp Wilks HPI: 03/07 23:21 This 61 yrs old Male presents to ER via Ambulatory with complaints of Arm Pain.kb 23:21 The patient or guardian complains of decreased range of motion, pain. The complaints kb affect the left elbow. Context: The problem was sustained at home, resulted from gout. Onset: The symptoms/episode began/occurred 3 day(s) ago. Treatment prior to arrival includes: over the counter medications, NSAIDS. Modifying factors: The symptoms are alleviated by nothing. the symptoms are aggravated by movement. Associated signs and symptoms: Pertinent positives: decreased range of motion, pain, Pertinent negatives: erythema, swelling, warmth. Severity of symptoms: At their worst the symptoms were moderate, in the emergency department the symptoms are unchanged. The patient has not experienced similar symptoms in the past. The patient has not recently seen a physician. Pt reports pain in elbow that is similar to pain he gets in knee when he has a gout flare-up. Historical: - Allergies: 21:46 No Known Allergies; bm7 - Home Meds: 21:46 allopurinol 100 mg Oral tab 4 tabs once daily [Active]; amlodipine 10 mg tab 1 tab once bm7 daily [Active]; lisinopril 40 mg Oral tab 1 tab once daily [Active]; - PMHx: 21:46 Diabetes - NIDDM; Gout; High Cholesterol; Hypertension; bm7 - PSHx: 21:46 None; bm7 - Immunization history:: Adult Immunizations up to date, Client reports receiving the 2nd dose of the Covid vaccine, Client reports receiving the 1st dose of the Covid vaccine. - Social history:: Smoking status: Patient denies any tobacco usage or history of. ROS: 23:20 Constitutional: Negative for fever, chills, and weight loss. kb 23:20 MS/extremity: Positive for pain, of the left elbow. 23:20 All other systems are negative. Exam: 23:20 Constitutional: This is a well developed, well nourished patient who is awake, alert, kb and in no acute distress. Head/Face: Normocephalic, atraumatic. ENT: Moist Mucous membranes Cardiovascular: Regular rate and rhythm with a normal S1 and S2. No gallops, murmurs, or rubs. No pulse deficits. Respiratory: Respirations even and unlabored. No increased work of breathing. Talking in full sentences Skin: Warm, dry with normal turgor. Normal color. Neuro: Awake and alert, GCS 15, oriented to person, place, time, and situation. Moves all extremities. Normal gait. Psych: Awake, alert, with orientation to person, place and time. Behavior, mood, and affect are within normal limits. 23:20 Musculoskeletal/extremity: Extremities: grossly normal except: noted in the left elbow: decreased ROM, pain, ROM: limited active range of motion due to pain, Circulation is intact in all extremities. Sensation intact. Vital Signs: 21:45 BP 147 / 93; Pulse 71; Resp 16; Temp 97.7(TE); Pulse Ox 98% on R/A; Weight 78.02 kg bm7 (R); Height 5 ft. 5 in. (165.10 cm); Pain 10/10; 23:31 BP 145 / 85; Pulse 75; Resp 18; Pulse Ox 100% ; Pain 4/10; kb3 21:45 Body Mass Index 28.62 (78.02 kg, 165.10 cm) bm7 MDM: 22:14 Patient medically screened. kb 23:19 Data reviewed: vital signs, nurses notes. Data interpreted: Pulse oximetry: on room air kb is 98 %. Interpretation: normal. Counseling: I had a detailed discussion with the patient and/or guardian regarding: the historical points, exam findings, and any diagnostic results supporting the discharge/admit diagnosis, the need for outpatient follow up, a family practitioner, to return to the emergency department if symptoms worsen or persist or if there are any questions or concerns that arise at home. Administered Medications: 22:47 Drug: [place] (HYDROcodone-acetaminophen) 10 mg-325 mg 1 tabs Route: PO; kb3 23:14 Follow up: Response: No adverse reaction; Pain is decreased kb3 22:48 Drug: Ketorolac 30 mg Route: IM; Site: left ventrogluteal; kb3 23:14 Follow up: Response: No adverse reaction; Pain is decreased kb3 22:48 Drug: Colcrys (colchicine) 0.6 mg Route: PO; kb3 23:14 Follow up: Response: No adverse reaction; Pain is decreased kb3 Disposition Summary: 03/07/22 23:19 Discharge Ordered Location: Home kb Condition: Stable kb Diagnosis - Gout, unspecified kb Followup: kb - With: Emergency Department - When: As needed - Reason: Worsening of condition Followup: kb - With: Private Physician - When: 2 - 3 days - Reason: Recheck today's complaints, Continuance of care, Re-evaluation by your physician Discharge Instructions: - Discharge Summary Sheet kb - Gout, Vmde-oe-Fads kb Forms: - Medication Reconciliation Form kb - Thank You Letter kb - Antibiotic Education kb - Prescription Opioid Use kb Signatures: Marley Lyle FNP-C FNP-Sadie Holcomb, RN RN bm7 Jacquelin Harvey, RN RN kb3
[2022-03-08 03:20] VITALS: TEMP 97.7
[2022-03-08 03:30] VITALS: BP 145/85; O2SAT 100
== END 2022-03-07 23:32 | disposition home or self-care (01) ==
LOC: ER 20:54
DX: M10.9 Gout, unspecified (principal); I10 Essential (primary) hypertension; E11.9 Type 2 diabetes mellitus without complications

== ENCOUNTER 2022-11-21 20:14 | Observation (INO) | payer OTHER ==
--- OUTSIDE RECORDS SUMMARY | 2022-11-21 20:17 | XMS REPORT | Continuity of Care Document ---
:1960 Author Organization [facility] t Address [address] [place] [address] Care Team Providers Name Role Phone MAICOL SAGASTUME Primary Care Physician Unavailable MAICOL SAGASTUME Attending Clinician Unavailable CYRIL OSBORN Attending Clinician Unavailable ENEDINA GROSS Attending Clinician Unavailable YAMILEX SOLARES Attending Clinician Unavailable JO JACKMAN Attending Clinician Unavailable JESSIE CORNEJO Attending Clinician Unavailable REN LONGO Attending Clinician Unavailable AZIZA JANG Attending Clinician Unavailable SAMANTHA GALAN Attending Clinician Unavailable JUJU MENDEZ Attending Clinician Unavailable MG LUTZ Attending Clinician Unavailable EDILIA SANTANA Attending Clinician Unavailable ROSAENNE CAMP Attending Clinician Unavailable MARCOS MONTAGUE Attending Clinician Unavailable YARY FLOREZ Attending Clinician Unavailable Payers Payer Name Policy Type Policy Number Effective Date Expiration Date [facility] [id number] 2022 CHOICE [facility] 00:00:00 [facility] [id number] 2696-02-03 2023 [employer] 00:00:00 00:00:00 Problems This patient has no known problems. Allergies, Adverse Reactions, Alerts This patient has no known allergies or adverse reactions. Medications This patient has no known medications. Procedures This patient has no known procedures. Encounters Start End Encounter Admission Attending Care Care Encounter Source Date/Time Date/Time Type Type Clinicians Facility Department ID 2022-12-17 2022-12-17 Outpatient [facility] [id number] [place] [address] 00:00:00 00:00:00 [facility] 2022-11-21 2022-11-21 Outpatient TANIKA, [facility] [id number] [place] 00:00:00 00:00:00 [facility] 2022-11-19 2022-11-19 Outpatient IRENA, [facility] [id number] [place] 06:28:52 18:13:32 [facility] 2022-11-16 2022-11-16 [facility] [id number] [place] 00:00:00 00:00:00 [facility] 2022-11-12 2022-11-12 Outpatient [facility] [id number] [place] 00:00:00 00:00:00 [facility] 2022-10-15 2022-10-15 [facility] [id number] [place] 00:00:00 00:00:00 [facility] 2022-10-12 2022-10-12 Outpatient [facility] [id number] [place] 06:41:35 06:41:35 [facility] 2022-10-11 2022-10-11 [facility] [id number] [place] 08:15:25 08:46:17 [facility] 2022-10-05 2022-10-05 Outpatient [facility] [id number] [place] 06:38:43 10:22:09 [facility] 2022-09-28 2022-09-28 Outpatient [facility] [id number] [place] 10:10:13 16:17:17 [facility] 2022-09-14 2022-09-14 [facility] [id number] [place] 08:06:06 09:23:20 [facility] 2022-09-14 2022-09-14 Outpatient [facility] [id number] [place] 00:00:00 00:00:00 [facility] 2022-09-04 2022-09-04 Outpatient [facility] [id number] [place] 16:11:13 16:26:55 [facility] 2022-08-17 2022-08-17 [facility] [id number] [place] 11:06:30 11:09:17 [facility] 2022-08-17 2022-08-17 [facility] [id number] [place] 08:57:57 09:36:17 MAICOL [facility] 2022-08-17 2022-08-17 Outpatient SUJATHA, [facility] [id number] [place] 00:00:00 00:00:00 [facility] 2022-03-22 2022-03-22 Outpatient OKUSANYA, [facility] [id number] [place] 07:50:12 07:53:39 [facility] 2022-03-22 2022-03-22 Outpatient OKUSANYA, [facility] [id number] [place] 00:00:00 00:00:00 [facility] 2022-03-15 2022-03-15 Outpatient JB-NOEL [facility] [id number] [place] 13:28:03 14:27:30 [facility] 2022-03-15 2022-03-15 Outpatient OKUSANYA, [facility] [id number] [place] 00:00:00 00:00:00 [facility] 2022-02-27 2022-02-27 Outpatient CLEMENTE, [facility] [id number] [place] 12:33:31 14:12:54 Pending sale to [facility] 2022-01-16 2022-01-16 Outpatient OKUSANYA, [facility] [id number] [place] 06:59:32 10:11:25 [facility] 2022-01-10 2022-01-10 Outpatient OKUSANYA, [facility] [id number] [place] 00:00:00 00:00:00 [facility] 2022-01-04 2022-01-04 Outpatient INADAM, [facility] [id number] [place] 00:00:00 00:00:00 PAVAN-OBLOLA [facility] 2021-12-07 2021-12-07 Outpatient OKUSANYA, [facility] [id number] [place] 07:03:43 15:28:45 [facility] 2021-11-29 2021-11-29 Outpatient OKUSANYA, [facility] [id number] [place] 09:19:32 09:30:15 [facility] 2021-11-23 2021-11-23 Outpatient AZIZA JANG [facility] [id number] [place] 07:59:04 10:31:14 [facility] 2021-10-25 2021-10-25 Outpatient SAMANTHA GALAN [facility] [id number] [place] 00:00:00 00:00:00 [facility] 2021-10-12 2021-10-12 Outpatient 3 [facility] [id number] [place] 14:28:53 14:34:31 [facility] 2021-10-12 2021-10-12 Outpatient TANIKA, [facility] [id number] [place] 14:28:53 14:34:31 [facility] 2021-10-12 2021-10-12 [facility] [id number] [place] 13:29:51 14:23:51 [facility] 2021-10-12 2021-10-12 [facility] [id number] [place] 13:05:20 13:09:13 [facility] 2021-10-12 2021-10-12 Outpatient OKUSALEANDRAA, [facility] [id number] [place] 00:00:00 00:00:00 [facility] 2021-10-12 2021-10-12 [facility] [id number] [place] 00:00:00 00:00:00 [facility] 2021-09-11 2021-09-11 [facility] [id number] [place] 14:32:23 17:34:43 [facility] 2021-09-11 2021-09-11 Outpatient [facility] [id number] [place] 13:19:15 13:21:29 [facility] 2021-09-11 2021-09-11 Outpatient JONES-CHIS [facility] [id number] [place] 00:00:00 00:00:00 [facility] 2021-08-14 2021-08-14 Outpatient [facility] [id number] [place] 14:28:44 17:59:46 [facility] 2021-08-14 2021-08-14 Outpatient [facility] [id number] [place] 14:04:25 14:06:35 [facility] 2021-08-09 2021-08-09 Outpatient SAMANTHA GALAN [facility] [id number] [place] 00:00:00 00:00:00 [facility] 2021-07-10 2021-07-10 Outpatient EDILIA SANTANA [facility] [id number] [place] 13:22:00 14:31:57 Health 2021-07-10 2021-07-10 Outpatient EDILIA SANTANA [facility] [id number] [place] 11:53:53 11:55:49 Health 2021-07-10 2021-07-10 Outpatient EDILIA SANTANA [facility] [id number] [place] 00:00:00 00:00:00 [facility] 2021-06-01 2021-06-01 Outpatient [facility] [id number] [place] 00:00:00 00:00:00 [facility] 2021-05-19 2021-05-19 Outpatient CORY [facility] [id number] [place] 09:12:52 09:46:24 ROSEANNE GREY [facility] 2021-04-10 2021-04-10 Outpatient EDILIA SANTANA [facility] [id number] [place] 15:05:41 16:47:02 [facility] 2021-04-10 2021-04-10 Outpatient [facility] [id number] [place] 14:13:33 14:31:47 [facility] 2021-04-10 2021-04-10 [facility] [id number] [place] 00:00:00 00:00:00 [facility] 2021-03-13 2021-03-13 Outpatient OKUSANYA, [facility] [id number] [place] 16:56:28 16:56:38 [facility] 2021-03-03 2021-03-03 Outpatient OKUSANYA, [facility] [id number] [place] 09:34:34 09:37:07 [facility] 2021-03-03 2021-03-03 Outpatient OKUSANYA, [facility] [id number] [place] 08:30:14 09:15:43 [facility] 2021-03-03 2021-03-03 Outpatient OKUSANYA, [facility] [id number] [place] 00:00:00 00:00:00 MAICOL [facility] 2021-01-26 2021-01-26 Outpatient SINHA [facility] [id number] [place] 09:16:15 12:48:12 [facility] 2021-01-26 2021-01-26 Outpatient SINHA [facility] [id number] [place] 00:00:00 00:00:00 [facility] h MARCOS 2020-12-20 2020-12-20 [facility] [id number] [place] 08:44:12 08:46:19 MAICOL [facility] 2020-12-06 2020-12-06 Outpatient TANIKA, [facility] [id number] [place] 09:51:21 14:38:26 MAICOL [facility] 2020-11-28 2020-11-28 Outpatient TANIKA, [facility] [id number] [place] 08:58:08 09:04:39 [facility] 2020-11-28 2020-11-28 Outpatient TANIKA [facility] [id number] [place] 08:32:50 09:01:00 [facility] 2020-11-25 2020-11-25 Outpatient TANIKA, [facility] [id number] [place] 15:42:40 16:58:09 [facility] 2020-09-13 2020-09-13 Outpatient [facility] [id number] [place] 00:00:00 00:00:00 [facility] 2020-09-10 2020-09-10 Outpatient TANIKA, [facility] [id number] [place] 10:33:11 10:34:07 [facility] 2020-09-01 2020-09-01 Outpatient [facility] [id number] [place] 00:00:00 00:00:00 [facility] 2020-08-02 2020-08-02 Outpatient [facility] [id number] [place] 00:00:00 00:00:00 [facility] 2018-08-19 2018-08-19 Outpatient [facility] [id number] [place] 00:00:00 00:00:00 [facility] 2018-08-07 2018-08-07 Outpatient [facility] [id number] [place] 10:54:41 10:54:41 [facility] 2018-07-22 2018-07-22 Outpatient [facility] [id number] [place] 15:34:05 15:34:05 [facility] 2018-07-22 2018-07-22 Outpatient [facility] [id number] [place] 13:59:31 13:59:31 [facility] 2018-06-30 2018-06-30 Outpatient [facility] [id number] [place] 10:02:01 10:02:01 [facility] 2018-04-29 2018-04-29 Outpatient [facility] [id number] [place] 11:35:57 11:35:57 [facility] 2018-04-15 2018-04-15 Outpatient [facility] [id number] [place] 12:13:55 12:13:55 [facility] 2018-04-15 2018-04-15 Outpatient [facility] [id number] [place] 09:46:06 09:46:06 Health 2018-04-08 2018-04-08 Outpatient [facility] [id number] [place] 10:13:14 10:13:14 Health 2018-04-04 2018-04-04 Outpatient [facility] [id number] [place] 15:17:56 15:17:56 Health 2018-04-04 2018-04-04 Outpatient [facility] [id number] [place] 14:09:27 14:09:27 Health 2018-04-01 2018-04-01 Outpatient [facility] [id number] [place] 14:53:15 14:53:15 [facility] 2018-04-01 2018-04-01 Outpatient [facility] [id number] [place] 00:00:00 00:00:00 [facility] 2018-02-12 2018-02-12 Outpatient [facility] [id number] [place] 15:07:20 15:07:20 [facility] 2018-01-10 2018-01-10 Outpatient [facility] [id number] [place] 07:59:36 07:59:36 [facility] 2017-12-20 2017-12-20 Outpatient [facility] [id number] [place] 08:28:13 08:28:13 [facility] 2017-12-10 2017-12-10 Outpatient [facility] [id number] [place] 08:46:09 08:46:09 [facility] 2017-10-24 2017-10-24 Outpatient [facility] [id number] [place] 15:08:55 15:08:55 [facility] 2017-10-24 2017-10-24 Outpatient [facility] [id number] [place] 14:11:33 14:11:33 [facility] 2017-10-19 2017-10-19 Emergency [facility] [id number] [place] 09:24:38 09:24:38 [facility] 2017-09-23 2017-09-23 Outpatient [facility] [id number] [place] 14:03:01 14:03:01 [facility] 2017-08-12 2017-08-12 Outpatient [facility] [id number] [place] 11:54:45 11:54:45 [facility] 2017-08-12 2017-08-12 Outpatient [facility] [id number] [place] 11:33:56 11:33:56 [facility] 2017-08-12 2017-08-12 Outpatient [facility] [id number] [place] 09:53:19 10:55:05 [facility] Results Test Description Test Time Test Comments Results Result Comments Source HIV 1+2 Ab+HIV1 p24 Ag SerPl Ql [place] 2021-10-12 21:33:14 Test Item Value Reference Range Interpretation Comme nts HIV 1+2 Ab+HIV1 p24 Ag SerPl Ql IA (test code = 31907-0) NEGATIVE Negative [id number] (COVID-19), RT-PCR/[id number] 10:54:39 Test Item Value Reference Interpretation Comments Range SARS-CoV-2 POSITIVE SEE NOTE A SARS-CoV-2 RNA INTERPRETATION DETECTEDPosit leeann results (test code = 87425) are jv cative of the presence of [...] code = NOT SPECIFIED Note: [place] [address]) Dave Ashlie [place] l-Time RT-PCR. The exp ected result or [...] (note,fact shee ts are provided by met hod given in report:https:// www.[employer], Inccom/clinician s/client-c ommunications/ Alternatively, see downloadable PD F fact sheet at:https://www. [employer].co m/DONJT-12-WO-P CR UNLESS OTHERWISE INDIC ATED, ALL TESTING PERFORM ED ATCLINICAL PATH [facility]IES, I [place]. [address] [facility] [place] [address] LABORATORY DIRE CTOR: Johaan NOVA. GUILLERMINAIA NUMBER [id number] CAP ACCREDITATION N O. [id number]
[2022-11-21 21:05] LABS: Absolute Lymphocytes (CBC) 2.6 K/uL (0.7-4.9); Hematocrit 39.8 % (39.6-49.0); Lymphocytes % 26.7 % (15.3-44.8); MCV 82.7 fL (80-100); MPV 8.1 fL (7.6-11.3); Protime INR 0.89; RBC Red Blood Cell Count 4.82 M/uL (4.33-5.43)
[2022-11-21] MEDS ORDERED: FAMOTIDINE 20 MG/2 ML VIAL IV ONE (21:05)
[2022-11-21] MEDS ORDERED: ASPIRIN EC 81 MG TAB PO ONE (21:05)
[2022-11-21] MEDS ORDERED: NA CHLORIDE 0.9% 1,000 ML ONE (21:05)
--- NOTE | 2022-11-21 21:11 | RAD REPORT ---
EXAM DESCRIPTION: RAD - Chest Single View - 11/21/2022 9:02 pm CLINICAL HISTORY: CHEST PAIN Chest pain. COMPARISON: <Comparisons> FINDINGS: Portable technique limits examination quality. The lungs are grossly clear. The heart is normal in size. No displaced fractures. IMPRESSION: No acute intrathoracic process suspected.
--- NOTE | 2022-11-21 21:23 | ER ---
Nurse's Notes [facility] Name: Ramón Avilez Age: 62 yrs Sex: Male : 1960 Arrival Date: 11/21/2022 Time: 20:14 Bed 7 Private MD: Diagnosis: Type 2 diabetes mellitus with hyperglycemia;Essential (primary) hypertension;Chest pain, unspecified;Hypokalemia;Hypomagnesemia Presentation: 11/21 20:20 Chief complaint: Patient states: chest pain that started today. Coronavirus screen: At as6 this time, the client does not indicate any symptoms associated with coronavirus-19. Ebola Screen: No symptoms or risks identified at this time. Initial Sepsis Screen: Does the patient meet any 2 criteria? No. Patient's initial sepsis screen is negative. Does the patient have a suspected source of infection? No. Patient's initial sepsis screen is negative. Risk Assessment: Do you want to hurt yourself or someone else? Patient reports no desire to harm self or others. Onset of symptoms was November 21, 2022. 20:20 Method Of Arrival: Ambulatory as6 20:20 Acuity: MENG 3 as6 Historical: - Allergies: 20:23 No Known Allergies; as6 - PMHx: 20:23 Diabetes - NIDDM; Gout; High Cholesterol; Hypertension; as6 - PSHx: 20:23 None; as6 - Immunization history:: Client reports receiving the 2nd dose of the Covid vaccine. - Social history:: Smoking status: Patient denies any tobacco usage or history of. Screenin:00 [facility] ED Fall Risk Assessment (Adult) History of falling in the last 3 months, jj7 including since admission No falls in past 3 months (0 pts) Confusion or Disorientation No (0 pts) Intoxicated or Sedated No (0 pts) Impaired Gait No (0 pts) Mobility Assist Device Used No (0 pt) Altered Elimination No (0 pt) Score/Fall Risk Level 0 - 2 = Low Risk Maintained a safe environment. Abuse screen: Denies threats or abuse. Nutritional screening: No deficits noted. Tuberculosis screening: No symptoms or risk factors identified. Assessment: 21:00 General: Appears in no apparent distress. comfortable, Behavior is calm, cooperative, jj7 appropriate for age. Pain: Denies pain. Cardiovascular: Reports STATED HE HAD SOME CP BUT IT HAS RESOLVED. 21:38 Reassessment: Patient and/or family updated on plan of care and expected duration. Pain ha1 level reassessed. Patient is alert, oriented x 3, equal unlabored respirations, skin warm/dry/pink. Patient denies pain at this time. 22:36 Reassessment: Patient appears in no apparent distress at this time. Patient and/or kl family updated on plan of care and expected duration. Pain level reassessed. Patient is alert, oriented x 3, equal unlabored respirations, skin warm/dry/pink. Patient denies pain at this time. 22:39 Pain: Pain began gradually. kl 22:40 Pain: Pain does not radiate. kl 22:49 Reassessment: Patient and/or family updated on plan of care and expected duration. Pain ha1 level reassessed. Patient is alert, oriented x 3, equal unlabored respirations, skin warm/dry/pink. Vital Signs: 20:20 BP 154 / 96; Pulse 70; Resp 18 S; Temp 98.4(O); Pulse Ox 96% on R/A; Weight 78.02 kg as6 (R); Height 5 ft. 5 in. (R); Pain 4/10; 21:14 BP 152 / 96; Pulse 65; Resp 17; Pulse Ox 97% on R/A; Pain 0/10; jj7 22:36 BP 140 / 85; Pulse 68; Resp 18; Temp 97(TE); Pulse Ox 98% on R/A; kl 20:20 Body Mass Index 28.62 (78.02 kg, 165.1 cm) as6 20:20 Pain Scale: Adult as6 21:14 Pain Scale: Adult jj7 ED Course: 20:18 Patient arrived in ED. mr 20:23 Triage completed. as6 20:24 Arm band placed on. as6 20:43 Jp Wilks MD is Attending Physician. seema 20:53 Basic Metabolic Panel Sent. kl 20:53 CBC with Diff Sent. kl 20:53 LFT's Sent. kl 20:53 Magnesium Sent. kl 20:53 NT PRO-BNP Sent. kl 20:53 PT-INR Sent. kl 20:53 Troponin HS Sent. kl 20:53 No provider procedures requiring assistance completed. Inserted saline lock: 20 gauge kl in right antecubital area, using aseptic technique. Blood collected. Patient maintains SpO2 saturation greater than 95% on room air. 21:00 Patient has correct armband on for positive identification. Bed in low position. Call [facility] light in reach. Side rails up X 1. Client placed on continuous cardiac and pulse oximetry monitoring. NIBP monitoring applied. gambling monitor on. 21:04 XRAY Chest (1 view) In Process Unspecified. EDMO 21:10 Basic Metabolic Panel Sent. j 21:22 Marco A Robles MD is Hospitalizing Provider[facility] 21:35 Sandy Calderon, RN is Primary Nurse. ha1 22:39 Patient admitted, IV remains in place. Administered Medications: 21:02 Drug: NS 0.9% IV 1000 ml Route: IV; Rate: 125 ml/hr; Site: right antecubital; 21:02 Drug: Famotidine IVP 20 mg Route: IVP; Site: right antecubital; 21:10 Drug: Aspirin PO Chewable Tablet 162 mg Route: PO; [facility] 21:35 Drug: Metoprolol PO 50 mg Route: PO; [facility] 21:36 Drug: Enoxaparin Sub-Q 1 mg/kg Route: Sub-Q; Site: abdomen; [facility] 22:36 Drug: Magnesium Sulfate IVPB 1 grams Route: IVPB; Infused Over: 1 hrs; Site: right kl antecubital; 22:36 Drug: Potassium PO Effervescent Tablet 50 mEq Route: PO; Medication: 21:00 VIS not applicable for this client. j Outcome: 21:23 Decision to Hospitalize by Provider. [facility] 22:36 [facility] accompanied by tech, via wheelchair, room 410, Report called to debbie remy 22:36 Condition: stable 22:50 Patient left the ED. ha1 Signatures: Dispatcher [employer] Petra Cummings RN RN kl Anderson, Corey, MD MD cha Rivera, Froy Thompson RN RN as6 Sandy Calderon RN RN ha1 Aiyana Pal RN RN jj7
--- NOTE | 2022-11-21 21:23 | EDPHYS ---
Physician Documentation [facility] Name: Ramón Avilez Age: 62 yrs Sex: Male : 1960 Arrival Date: 11/21/2022 Time: 20:14 Bed 7 Private MD: ED Physician Jp Wilks HPI: 11/21 21:18 This 62 yrs old Male presents to ER via Ambulatory with complaints of Chest seema Pain. 21:18 The patient or guardian reports chest pain that is located primarily in the anterior seema chest wall, left. Onset: just prior to arrival, today. The pain does not radiate. Associated signs and symptoms: Pertinent positives: shortness of breath. The chest pain is described as a pressure. Duration: The patient or guardian reports a single episode, that is now resolved. Modifying factors: The symptoms are alleviated by nothing. the symptoms are aggravated by nothing. Severity of pain: At its worst the pain was mild in the emergency department the pain is unchanged. The patient has not experienced similar symptoms in the past. Historical: - Allergies: 20:23 No Known Allergies; as6 - PMHx: 20:23 Diabetes - NIDDM; Gout; High Cholesterol; Hypertension; as6 - PSHx: 20:23 None; as6 - Immunization history:: Client reports receiving the 2nd dose of the Covid vaccine. - Social history:: Smoking status: Patient denies any tobacco usage or history of. ROS: 21:18 Constitutional: Negative for fever, chills, and weight loss, Eyes: Negative for injury, seema pain, redness, and discharge, ENT: Negative for injury, pain, and discharge, Neck: Negative for injury, pain, and swelling, Cardiovascular: Negative for chest pain, palpitations, and edema, Respiratory: Negative for shortness of breath, cough, wheezing, and pleuritic chest pain, Abdomen/GI: Negative for abdominal pain, nausea, vomiting, diarrhea, and constipation, Back: Negative for injury and pain, : Negative for injury, bleeding, discharge, and swelling, MS/Extremity: Negative for injury and deformity, Skin: Negative for injury, rash, and discoloration, Neuro: Negative for headache, weakness, numbness, tingling, and seizure, Psych: Negative for depression, anxiety, suicide ideation, homicidal ideation, and hallucinations, Allergy/Immunology: Negative for hives, rash, and allergies, Endocrine: Negative for neck swelling, polydipsia, polyuria, polyphagia, and marked weight changes, Hematologic/Lymphatic: Negative for swollen nodes, abnormal bleeding, and unusual bruising. 21:18 Cardiovascular: Positive for chest pain, of the chest. Exam: 21:18 Constitutional: This is a well developed, well nourished patient who is awake, alert, seema and in no acute distress. Head/Face: Normocephalic, atraumatic. Eyes: Pupils equal round and reactive to light, extra-ocular motions intact. Lids and lashes normal. Conjunctiva and sclera are non-icteric and not injected. Cornea within normal limits. Periorbital areas with no swelling, redness, or edema. ENT: Nares patent. No nasal discharge, no septal abnormalities noted. Tympanic membranes are normal and external auditory canals are clear. Oropharynx with no redness, swelling, or masses, exudates, or evidence of obstruction, uvula midline. Mucous membranes moist. Neck: Trachea midline, no thyromegaly or masses palpated, and no cervical lymphadenopathy. Supple, full range of motion without nuchal rigidity, or vertebral point tenderness. No Meningismus. Chest/axilla: Normal chest wall appearance and motion. Nontender with no deformity. No lesions are appreciated. Cardiovascular: Regular rate and rhythm with a normal S1 and S2. No gallops, murmurs, or rubs. Normal PMI, no JVD. No pulse deficits. Respiratory: Lungs have equal breath sounds bilaterally, clear to auscultation and percussion. No rales, rhonchi or wheezes noted. No increased work of breathing, no retractions or nasal flaring. Abdomen/GI: Soft, non-tender, with normal bowel sounds. No distension or tympany. No guarding or rebound. No evidence of tenderness throughout. Back: No spinal tenderness. No costovertebral tenderness. Full range of motion. Skin: Warm, dry with normal turgor. Normal color with no rashes, no lesions, and no evidence of cellulitis. MS/ Extremity: Pulses equal, no cyanosis. Neurovascular intact. Full, normal range of motion. Neuro: Awake and alert, GCS 15, oriented to person, place, time, and situation. Cranial nerves II-XII grossly intact. Motor strength 5/5 in all extremities. Sensory grossly intact. Cerebellar exam normal. Normal gait. Psych: Awake, alert, with orientation to person, place and time. Behavior, mood, and affect are within normal limits. 21:18 ECG was reviewed by the Attending Physician. Vital Signs: 20:20 BP 154 / 96; Pulse 70; Resp 18 S; Temp 98.4(O); Pulse Ox 96% on R/A; Weight 78.02 kg as6 (R); Height 5 ft. 5 in. (R); Pain 4/10; 21:14 BP 152 / 96; Pulse 65; Resp 17; Pulse Ox 97% on R/A; Pain 0/10; jj7 22:36 BP 140 / 85; Pulse 68; Resp 18; Temp 97(TE); Pulse Ox 98% on R/A; kl 20:20 Body Mass Index 28.62 (78.02 kg, 165.1 cm) as6 20:20 Pain Scale: Adult as6 21:14 Pain Scale: Adult jj7 MDM: 20:43 Patient medically screened. seema 21:20 Differential diagnosis: abnormal EKG, acute myocardial infarction, acute pericarditis, seema anxiety, coronary artery disease chest wall pain, Cholelithiasis costochondritis, esophagitis, gastroesophageal reflux disease (GERD), hiatal hernia, pancreatitis, peptic ulcer disease, pericarditis, pleurisy, pneumonia, pneumothorax, pulmonary embolus, stable angina, thoracic aortic disection, unstable angina. HEART Score: History: Moderately Suspicious (1), ECG: Non specific repolarization disturbance / LBTB / PM (1), Age: > 45 and < 65 years (1), Risk Factors: > or = 3 Risk factors for atherosclerotic disease (2), [Hypercholesterolemia] [Hypertension] [DM] [+ Family HX] [Obesity] Troponin: < or = 1 x Normal Limit (0). The patient was given aspirin in the Emergency Department. SWATI Risk Score: 1 - Three or more CAD risk factors, 1- Known CAD, 1 - ASA use in past 7 days, TOTAL SCORE = 3. Data reviewed: vital signs, nurses notes, lab test result(s), EKG, radiologic studies, plain films. Consideration of Admission/Observation Patient was admitted/placed on observation. Escalation of care including admission/observation considered. I considered the following discharge prescriptions or medication management in the emergency department Medications were administered in the Emergency Department. See 20:36 Order name: Basic Metabolic Panel; Complete Time: 22:13 11/21 20:36 Order name: CBC with Diff; Complete Time: 21:40 11/21 20:36 Order name: LFT's; Complete Time: 22:13 11/21 20:36 Order name: Magnesium; Complete Time: 22:13 11/21 20:36 Order name: NT PRO-BNP; Complete Time: 22:13 11/21 20:36 Order name: PT-INR; Complete Time: 21:24 11/21 20:36 Order name: Troponin HS; Complete Time: 22:13 11/21 20:44 Order name: Lipase; Complete Time: :51 [facility] 11/21 20:44 Order name: Urinalysis w/ reflexes; Complete Time: 21:51 [facility] 11/21 20:36 Order name: XRAY Chest (1 view); Complete Time: 21:24 11/21 20:36 Order name: EKG; Complete Time: 20:37 11/21 20:36 Order name: Cardiac monitoring; Complete Time: 20:52 11/21 20:36 Order name: EKG - Nurse/Tech; Complete Time: 20:36 11/21 20:36 Order name: IV Saline Lock; Complete Time: 20:52 11/21 20:36 Order name: Labs collected and sent; Complete Time: 20:52 11/21 20:36 Order name: O2 Per Protocol; Complete Time: 20:53 11/21 20:36 Order name: O2 Sat Monitoring; Complete Time: 20:53 EC:18 Rate is 72 beats/min. Rhythm is regular. QRS [place] is Normal. NC interval is normal. QRS seema interval is normal. QT interval is normal. No Q waves. T waves are Normal. No ST changes noted. Clinical impression: NSR w/ Non-specific ST/T Changes and No evidence of ischemia. Interpreted by me. Reviewed by me. Administered Medications: 21:02 Drug: NS 0.9% IV 1000 ml Route: IV; Rate: 125 ml/hr; Site: right antecubital; kl 21:02 Drug: Famotidine IVP 20 mg Route: IVP; Site: right antecubital; kl 21:10 Drug: Aspirin PO Chewable Tablet 162 mg Route: PO; jj7 21:35 Drug: Metoprolol PO 50 mg Route: PO; ha1 21:36 Drug: Enoxaparin Sub-Q 1 mg/kg Route: Sub-Q; Site: abdomen; ha1 22:36 Drug: Magnesium Sulfate IVPB 1 grams Route: IVPB; Infused Over: 1 hrs; Site: right kl antecubital; 22:36 Drug: Potassium PO Effervescent Tablet 50 mEq Route: PO; Disposition Summary: 11/21/22 21:23 Hospitalization Ordered Hospitalization Status: Observation seema Provider: Marco A Robles cha Location: Telemetry/MedSurg (observation) seema Condition: Fair seema Problem: new seema Symptoms: have improved seema Bed/Room Type: Standard seema Room Assignment: 410(11/21/22 22:15) cg Diagnosis - Type 2 diabetes mellitus with hyperglycemia seema - Essential (primary) hypertension seema - Chest pain, unspecified seema - Hypokalemia seema - Hypomagnesemia seema Forms: - Medication Reconciliation Form seema - SBAR form seema Signatures: Dispatcher [employer] EDPetra Ba RN RN kl Anderson, Corey, MD MD cha Attema, Lee, EMERGENCY GENERATOR MECHANIC-C EMERGENCY GENERATOR MECHANIC-ClaKrys Remy RN RN cg Slawson, Ashby, RN RN as6 Sandy Calderon RN RN haAiyana Faustin RN RN jj7 Corrections: (The following items were deleted from the chart) 22:15 21:23 seema cg
[2022-11-21 21:32] LABS: ALT/SGPT 39 U/L (16-61); AST/SGOT 20 U/L (15-37); Albumin 3.8 g/dL (3.4-5.0); Alkaline Phosphatase 82 U/L (45-117); BUN Blood Urea Nitrogen 14 mg/dL (7-18); Bicarbonate 28 mEq/L (21-32); Bilirubin Total 0.2 mg/dL (0.2-1.0); Glomerular Filtration Rate 82 ml/min (=/>90); Glucose Level 174 mg/dL (74-106); Magnesium 1.5 mg/dL (1.6-2.4); NT PRO-BNP 124 pg/mL (<125); Potassium 2.8 mEq/L (3.5-5.1); Protein, Total 7.6 g/dL (6.4-8.2); Sodium Level 140 mEq/L (136-145); Troponin High Sensitivity 13.5 pg/mL (<58.9)
[2022-11-21] MEDS ORDERED: ENOXAPARIN 80 MG/0.8 ML SQ ONE (21:33)
[2022-11-21] MEDS ORDERED: METOPROLOL XL 50 MG TAB PO ONE (21:33)
[2022-11-21 21:47] LABS: Specific Gravity 1.024 (1.005-1.030); Urine Bacteria None Seen /HPF (<20); Urine Bilirubin NEGATIVE (Negative); Urine Blood Negative (Negative); Urine Clarity Clear (Clear); Urine Color Yellow (Yellow); Urine Glucose NEGATIVE (Negative); Urine Mucus Slight /HPF (None Seen); Urine Protein TRACE (Negative); Urine RBC <5 /HPF (None Seen); Urine Urobilinogen Normal (Normal); Urine pH 5.5 (5.0-7.0)
[2022-11-21 22:08] LABS: Bilirubin Direct < 0.1 mg/dL (0-0.2); Bilirubin Indirect, Calculated ND (0.2-0.8)
[2022-11-21] MEDS ORDERED: MAGNESIUM SULFATE 1 gm IVPB 1 GM/100 ML BAG IV ONE (22:37)
[2022-11-21] MEDS ORDERED: POTASSIUM 25 MEQ EFFERV TAB ONE (22:37)
[2022-11-21] MEDS ORDERED: MORPHINE 2 MG/ML SYR IV PRN (22:41)
[2022-11-21] MEDS ORDERED: ONDANSETRON 4 MG/2 ML VIAL IV PRN (22:41)
--- NOTE | 2022-11-21 23:03 | P.HP ---
Certification for Inpatient Patient admitted to: Observation With expected LOS: <2 Midnights Patient will require the following post-hospital care: None Practitioner: I am a practitioner with admitting privileges, knowledge of patient current condition, hospital course, and medical plan of care. Services: Services provided to patient in accordance with Admission requirements found in Title 42 Section 412.3 of the Code of Federal Regulations Patient History Date of Service: 11/21/22 Reason for admission: Chest pain History of Present Illness: 62-year-old male with history of txt-[id number] diabetes, hypertension, gout presents to the emergency department chief complaint of chest pain. He reports his pain began while at rest earlier today described as mild, intermittent pain nonradiating without associated symptoms. He denies any previous cardiac evaluation. He was evaluated in the emergency department EKG without STEMI criteria initial troponin 13.5 potassium was 2.8 mag was 1.5 these were both replaced in the ED chest x-ray is unremarkable ED provider wishes to admit patient under observation for ACS rule out. Allergies No Known Allergies Allergy (Verified 03/15/18 02:06) Home Medications: Chlorthalidone 1 tab PO DAILY 04/03/19 allopurinoL [Zyloprim*] 400 mg PO DAILY 04/03/19 lisinopriL [Lisinopril] 1 tab PO DAILY 04/03/19 - Past Medical/Surgical History Diabetic: Yes -: HTN -: NIDDM -: Hypokalemia -: Gout both knees; feet -: High cholesterol -: Anxiety -: Right ankle surgery Psychosocial/ Personal History: Patient lives at home with his is currently unemployed - Family History uncle -: Cancer Notes: unable to recall the specific cancer - Social History Smoking Status: Never smoker Alcohol use: No CD- Drugs: No Caffeine use: Yes Place of Residence: Home Review of Systems 10-point ROS is otherwise unremarkable Cardiovascular: Chest Pain, As per HPI Physical Examination - Physical Exam General: Alert, In no apparent distress, Oriented x3 HEENT: Atraumatic, PERRLA, Mucous membr. moist/pink, EOMI, Sclerae nonicteric Neck: Supple, 2+ carotid pulse no bruit, No LAD, Without JVD or thyroid abnormality Respiratory: Clear to auscultation bilaterally, Normal air movement Cardiovascular: Regular rate/rhythm, Normal S1 S2 Gastrointestinal: Normal bowel sounds, No tenderness Musculoskeletal: No tenderness Integumentary: No rashes Neurological: Normal gait, Normal speech, Normal strength at 5/5 x4 extr, Normal tone, Normal affect Lymphatics: No axilla or inguinal lymphadenopathy - Studies Laboratory Data (last 24 hrs) 11/21/22 20:45: Lipase 47 11/21/22 20:45: PT 9.8, INR 0.89 11/21/22 20:45: WBC 9.60, Hgb 13.4 L, Hct 39.8, Plt Count 251 11/21/22 20:45: Sodium 140, Potassium 2.8 L, BUN 14, Creatinine 1.02, Glucose 174 H, Magnesium 1.5 L, Total Bilirubin 0.2, AST 20, ALT 39, Alkaline Phosphatase 82 Assessment and Plan - Plan Assessment: Chest pain rule out ACS Hypertension Diabetes mellitus type [id number] Gout Hyperlipidemia Plan: Chest pain rule out ACS Trend troponins, monitor on telemetry, cardiology consult in place. Given aspirin in ED, daily aspirin, statin. Hypertension Continue home medications Diabetes mellitus type [id number] ACHS Accu-Chek, sliding scale insulin. A1c in the morning. Gout Hyperlipidemia Continue home medications. DVT PPX: Lovenox Code status: Full Discharge Plan: Home Plan to discharge in: 24 Hours - Advance Directives Does patient have a Living Will: No Does patient have a Durable POA for Healthcare: No - Code Status/Comfort Care Code Status Assessed: Yes (Full code) Critical Care: No Time Spent Managing Pts Care (In Minutes): 55
[2022-11-21 23:42] VITALS: BMI 28.6
[2022-11-22 06:15] LABS: Absolute Lymphocytes (CBC) 2.4 K/uL (0.7-4.9); Hematocrit 35.8 % (39.6-49.0); Lymphocytes % 43.5 % (15.3-44.8); MCV 83.9 fL (80-100); MPV 8.6 fL (7.6-11.3); RBC Red Blood Cell Count 4.26 M/uL (4.33-5.43)
[2022-11-22 06:38] LABS: Magnesium 1.6 mg/dL (1.6-2.4); Potassium 2.8 mEq/L (3.5-5.1); Troponin High Sensitivity 11.7 pg/mL (<58.9)
[2022-11-22] MEDS ORDERED: KCL 20 MEQ/100 mL IVPB 20 MEQ/100 ML BAG IV SCH (07:00)
--- NOTE | 2022-11-22 07:22 | P.PN ---
Date of Service: 11/22/22 Subjective: Feeling much better this morning no chest pain or SOB today no new / worsening problems no diarrhea / vomiting ROS: 10 point ROS as noted above, otherwise negative Physical Exam: GEN: Alert, oriented, NAD HEENT: Normal conjunctiva, sclera anicteric CV: Regular rate and rhythm, no edema Pulm: Nonlabored respirations on room air ABD: Soft, nontender, nondistended MSK: No joint tenderness Neuro: Normal speech, normal affect vitals reviewed Problem List: Chest pain Hypertension [id number] Gout Hyperlipidemia GERD Chest pain CXR 11/21 - negative Given aspirin in ED, daily aspirin, statin. Trend troponin - negative x3 monitor on telemetry cardiology consulted echo pending [id number] continue sliding scale insulin A1c in the morning Hypertension Gout Hyperlipidemia Continue home medications VTE: Lovenox Code: Full Dispo: Home 24hrs
[2022-11-22] MEDS: INSULIN -REGULAR HUMAN 50 UNIT/0.5 ML ML SQ SCH ×2 (07:30→11:30)
[2022-11-22] MEDS ORDERED: MAGNESIUM SULFATE 1 gm IVPB 1 GM/100 ML BAG IV ONE (08:00)
[2022-11-22 08:29] VITALS: BP 131/74; TEMP 97.6
[2022-11-22] MEDS ORDERED: POTASSIUM CL SA 10 MEQ TAB PO ONE (09:00)
[2022-11-22] MEDS ORDERED: ASPIRIN EC 81 MG TAB PO SCH (09:00)
[2022-11-22] MEDS ORDERED: ENOXAPARIN 40 MG/0.4 ML SQ SCH (09:00)
--- NOTE | 2022-11-22 13:18 | CON ---
Date of Consultation: 11/22/[address] Robles on 11/21/2022. Reason For Consultation: Atypical chest pain. History Of Present Illness: Mr. Avilez is 62, has a history of diabetes, hypertension, dyslipidemia, came in with left lateral chest pain upper left shoulder without any radiation. Denied nausea, vomit ing, diaphoresis, PND, orthopnea, pedal edema, palpitations, or syncope. Pain has resolved. EKG is normal. Troponin is normal. Potassium is 2.8. He is receiving potassium supplement. His pain was not exertional. No previous cardiac history. Echocardiogram is pending. Allergies: NONE. Review of Systems: Negative. Social History: Negative. Family History: Positive for heart disease and diabetes. Medications: At home include lisinopril, metformin, hydralazine. He is now on aspirin, Lipitor, Elfego enox, and insulin. Physical Examination: General: Slightly anxious. No acute distress. Vital Signs: Stable. Afebrile. HEENT: Negative. Neck: Supple with no bruit. Chest: Clear. Cardiac: Revealed a regular rhythm and rate. No murmurs, gallops, or rubs. Abdomen: Benign. Extremities: Revealed no clubbing, cyanosis, or edema. Diagnostic Data: Negative, except for the hypokalemia. Impression And Plan: 1.Hypokalemia. He is getting potassium supplement now. 2.Atypical chest pain. Echocardiogram is pending. 3.Diabetes. 4.Hypertension. 5.Dyslipidemia. I think patient deserves to have an outpatient stress test in the future, and I will make arrangement s for that as an outpatient. We will continue to follow him while he is in the hospital. PATRICIA/JAVIER Voice ID: [id number] Report ID: [id number]
[2022-11-22 13:21] VITALS: O2SAT 97
--- NOTE | 2022-11-22 13:34 | P.DS ---
Admission Date: 11/21/22 Discharge Date: 11/22/22 Disposition: ROUTINE DISCHARGE Discharge Condition: GOOD Reason for Admission: Chest pain Consultations: Cardiology - Dr. Marin Brief History of Present Illness: 62-year-old male with history of dvt-eysvkpm-ytxbtpxjl diabetes, hypertension, gout presents to the emergency department chief complaint of chest pain. He reports his pain began while at rest earlier today described as mild, intermittent pain nonradiating without associated symptoms. He denies any previous cardiac evaluation. He was evaluated in the emergency department EKG without STEMI criteria initial troponin 13.5 potassium was 2.8 mag was 1.5 these were both replaced in the ED chest x-ray is unremarkable ED provider wishes to admit patient under observation for ACS rule out. Hospital Course: Problem List: Chest pain Hypertension SM5ffu-tyuzttv-rpfipeais Gout Hyperlipidemia GERD Patient presented with intermittent non-radiating chest pain. Troponins were negative x3, EKG was normal, and no acute abnormalities noted on x-ray. Echocardiogram was obtained and unremarkable. His symptoms resolved. Cardiology was consulted and recommended no further inpatient testing. He was noted to have hypokalemia, which has been a chronic issue for many years. This was repleted to normal levels, and will be discharged home with low dose potassium. He is deemed stable for discharge home. He will need to follow up with cardiology for an outpatient stress test Follow up with PCP to recheck electrolytes. Follow-up PCP within 1 week Cardiology in next few weeks for outpatient stress test continue home meds as previously prescribed. New medication: potassium 10meq daily Physical Exam: GEN: Alert, oriented, NAD HEENT: Normal conjunctiva, sclera anicteric CV: Regular rate and rhythm, no edema Pulm: Nonlabored respirations on room air ABD: Soft, nontender, nondistended MSK: No joint tenderness Neuro: Normal speech, normal affect Vital Signs/Physical Exam: Temp Pulse Resp BP Pulse Ox 97.6 F 54 16 131/74 97 11/22/22 08:00 11/22/22 08:00 11/22/22 08:00 11/22/22 08:00 11/22/22 08:00 Laboratory Data at Discharge: WBC 5.60 thou/uL (4.3-10.9) 11/22/22 05:35 Hgb 11.8 g/dL (13.6-17.9) L D 11/22/22 05:35 Hct 35.8 % (39.6-49.0) L 11/22/22 05:35 Plt Count 214 thou/uL (152-406) 11/22/22 05:35 PT 9.8 SECONDS (9.5-12.5) 11/21/22 20:45 INR 0.89 11/21/22 20:45 Sodium 139 mEq/L (136-145) 11/22/22 05:35 Potassium 3.5 mEq/L (3.5-5.1) D 11/22/22 11:33 BUN 12 mg/dL (7-18) 11/22/22 05:35 Creatinine 0.87 mg/dL (0.70-1.30) 11/22/22 05:35 Glucose 121 mg/dL (74-106) H 11/22/22 05:35 Magnesium 1.6 mg/dL (1.6-2.4) 11/22/22 05:35 Total Bilirubin 0.2 mg/dL (0.2-1.0) 11/21/22 20:45 AST 20 U/L (15-37) 11/21/22 20:45 ALT 39 U/L (16-61) 11/21/22 20:45 Alkaline Phosphatase 82 U/L (45-117) 11/21/22 20:45 Triglycerides 294 mg/dL (<150) H 11/22/22 05:35 Cholesterol 167 mg/dL (<200) 11/22/22 05:35 HDL Cholesterol 40 mg/dL (40-60) 11/22/22 05:35 Cholesterol/HDL Ratio 4.18 11/22/22 05:35 Lipase 47 U/L (13-75) 11/21/22 20:45 Home Medications: lisinopriL [Lisinopril] 40 mg PO DAILY 04/03/19 Hydralazine [Apresoline*] 25 mg PO TID 11/21/22 Metformin HCl 1,000 mg PO BID 11/21/22 Potassium Chloride [Klor-Con 10] 10 meq PO DAILY 14 Days #14 tab 11/22/22 New Medications: Potassium Chloride [Klor-Con 10] 10 meq PO DAILY 14 Days #14 tab Physician Discharge Instructions: Patient presented with intermittent non-radiating chest pain. Troponins were negative x3, EKG was normal, and no acute abnormalities noted on x-ray. Echocardiogram was obtained and unremarkable. His symptoms resolved. Cardiology was consulted and recommended no further inpatient testing. He was noted to have hypokalemia, which has been a chronic issue for many years. This was repleted to normal levels, and will be discharged home with low dose potassium. He is deemed stable for discharge home. He will need to follow up with cardiology for an outpatient stress test Follow up with PCP to recheck electrolytes. Follow-up PCP within 1 week Cardiology in next few weeks for outpatient stress test continue home meds as previously prescribed. New medication: potassium 10meq daily Followup: Rajendra Marin MD [ACTIVE - CAN ADMIT] - NONE,NONE [Primary Care Provider] - Time spent managing pt's care (in minutes): 45
--- NOTE | 2022-11-22 14:27 | EKG ---
Test Date: 2022-11-21 Test Time: 20:29:56 Journeyman Wireman: MEASUREMENT RESULTS: Intervals: Rate: 72 [place]: 162 QRSD: 82 QT: 412 QTc: 451 [place]: P: 46 [place]: 162 QRS: -26 T: -32 INTERPRETIVE STATEMENTS: Normal sinus rhythm Nonspecific T wave abnormality Abnormal ECG Compared to ECG 08/12/2021 13:34:59 T-wave abnormality now present Sinus bradycardia no longer present Left ventricular hypertrophy no longer present ST (T wave) deviation no longer present Electronically Signed On 11-22-22 14:25:58 CDT by Mahamed Cook
[2022-11-22] MEDS ORDERED: ATORVASTATIN 20 MG TAB PO SCH (21:00)
--- NOTE | 2022-11-23 07:08 | ECHO ---
HEIGHT: 5 ft 5 in WEIGHT: 172 lb 0 oz DATE OF STUDY: 11/22/[address]: Rajendra Marin MD 2-DIMENSIONAL: YES M.MODE: YES DOPPLER: YES COLOR FLOW: YES TDS: NO PORTABLE: YES DEFINITY: NO BUBBLE STUDY: NO DIAGNOSIS: CHEST PAIN CARDIAC HISTORY: CATHERIZATION: SURGERY: PROSTHETIC VALVE: PACEMAKER: MEASUREMENTS (cm) DIASTOLIC (NORMALS) SYSTOLIC (NORMALS) IVSd 0.9 (0.6-1.2) LA Diam 4.0 (1.9-4.0) LVEF 61% LVIDd 4.8 (3.5-5.7) LVIDs 3.2 (2.0-3.5) %FS 33% LVPWd 1.0 (0.6-1.2) Ao Diam 3.3 (2.0-3.7) 2 DIMENSIONAL ASSESSMENT: RIGHT ATRIUM: NORMAL LEFT ATRIUM: NORMAL RIGHT VENTRICLE: NORMAL LEFT VENTRICLE: NORMAL TRICUSPID VALVE: MILD TR MITRAL VALVE: MILD MR PULMONIC VALVE: NORMAL AORTIC VALVE: MILD AI PERICARDIAL EFFUSION: NONE AORTIC ROOT: NORMAL LEFT VENTRICULAR WALL MOTION: NORMAL DOPPLER/COLOR FLOW: SEE BELOW. COMMENTS: 1. NORMAL LEFT VENTRICULAR EJECTION FRACTION 55-60%. 2. NORMAL WALL MOTION. 3. MILD AORTIC REGURGITATION. 4. MILD MITRAL REGURGITATION. 5. MILD TRICUSPID REGURGITATION. TECHNOLOGIST: Karie FRIAS
== END 2022-11-22 14:37 | disposition home or self-care (01) ==
LOC: ER 20:14 → ERHOLD 21:58 → 4TH 22:30
PROVIDERS: ADMIT Hospitalist; ATTEND Hospitalist
DX: R07.89 Other chest pain (principal); I10 Essential (primary) hypertension; E11.9 Type 2 diabetes mellitus without complications; M10.9 Gout, unspecified; E78.5 Hyperlipidemia, unspecified; E87.6 Hypokalemia; K21.9 Gastro-esophageal reflux disease without esophagitis
CPT/HCPCS: 93005; 93306; 85025 ×2; 81001; 80048 ×2; 36415; 83735 ×2; 84132; 85610; 80061; 82947 ×3; 80076; 83036; 84484 ×3; 83690; 83880; 71045; 96375; 96372; 96374; 99285; J3480; J3475 ×2; J1650; J7030; G0378 ×3

== ENCOUNTER 2022-12-08 05:49 | Emergency (ER) | payer OTHER ==
--- OUTSIDE RECORDS SUMMARY | 2022-12-08 05:53 | XMS REPORT | Continuity of Care Document ---
:1960 Author Organization [facility] Address [address] [place] [address] Care Team Providers Name Role Phone MAICOL SAGASTUME Primary Care Physician Unavailable JESSIE CORNEJO Attending Clinician Unavailable MAICOL SAGASTUME Attending Clinician Unavailable CYRIL OSBORN Attending Clinician Unavailable ENEDINA GROSS Attending Clinician Unavailable YAMILEX SOLARES Attending Clinician Unavailable JO JACKMAN Attending Clinician Unavailable REN LONGO Attending Clinician Unavailable AZIZA JANG Attending Clinician Unavailable SAMANTHA GALAN Attending Clinician Unavailable JUJU MENDEZ Attending Clinician Unavailable MG LUTZ Attending Clinician Unavailable EDILIA SANTANA Attending Clinician Unavailable ROSEANNE CAMP Attending Clinician Unavailable MARCOS MONTAGUE Attending Clinician Unavailable YARY FLOREZ Attending Clinician Unavailable Payers Payer Name Policy Type Policy Number Effective Date Expiration Date [facility] [id number] 2022 CHOICE [employer] 00:00:00 [facility] [id number] 2023 [employer] 00:00:00 00:00:00 Problems This patient has no known problems. Allergies, Adverse Reactions, Alerts This patient has no known allergies or adverse reactions. Medications This patient has no known medications. Procedures This patient has no known procedures. Encounters Start End Encounter Admission Attending Care Care Encounter Source Date/Time Date/Time Type Type Clinicians Facility Department ID 2023-02-22 2023-02-22 Outpatient CLEMENTE, [facility] [id number] [place] 00:00:00 00:00:00 [facility] 2023-01-04 2023-01-04 Outpatient [facility] [id number] [place] 00:00:00 00:00:[address] [facility] 2022-12-17 2022-12-17 Outpatient [facility] [id number] [place] 00:00:00 00:00:[address] [facility] 2022-12-17 2022-12-17 Outpatient TANIKA, [facility] [id number] [place] 00:00:00 00:00:00 [facility] 2022-11-27 2022-11-27 [facility] [id number] [place] 08:06:13 08:13:43 [facility] 2022-11-27 2022-11-27 [facility] [id number] [place] 00:00:00 00:00:00 [facility] 2022-11-26 2022-11-26 [facility] [id number] [place] 08:31:51 09:20:53 [facility] 2022-11-21 2022-11-21 [facility] [id number] [place] 00:00:00 00:00:00 [facility] 2022-11-19 2022-11-19 Outpatient IRENA, [facility] [id number] [place] 06:28:52 18:13:32 [facility] 2022-11-16 2022-11-16 [facility] [id number] [place] 00:00:00 00:00:00 [facility] 2022-11-12 2022-11-12 Outpatient [facility] [id number] [place] 00:00:00 00:00:[address] [facility] 2022-10-15 2022-10-15 [facility] [id number] [place] 00:00:00 00:00:00 [facility] 2022-10-12 2022-10-12 Outpatient [facility] [id number] [place] 06:41:35 06:41:[address] [facility] 2022-10-11 2022-10-11 [facility] [id number] [place] 08:15:25 08:46:17 [facility] 2022-10-05 2022-10-05 Outpatient [facility] [id number] [place] 06:38:43 10:22:[address] [facility] 2022-09-28 2022-09-28 Outpatient [facility] [id number] [place] 10:10:13 16:17:[address] [facility] 2022-09-14 2022-09-14 Outpatient OKUSANYA, [facility] [id number] [place] 08:06:06 09:23:20 [facility] 2022-09-14 2022-09-14 Outpatient [facility] [id number] [place] 00:00:00 00:00:[address] [facility] 2022-09-04 2022-09-04 Outpatient [facility] [id number] [place] 16:11:13 16:26:[address] [facility] 2022-08-17 2022-08-17 Outpatient OKOH, [facility] [id number] [place] 11:06:30 11:09:17 ENEDINA [facility] 2022-08-17 2022-08-17 Outpatient OKUSANYA, [facility] [id number] [place] 08:57:57 09:36:17 [facility] 2022-08-17 2022-08-17 Outpatient SUJATHA, [facility] [id number] [place] 00:00:00 00:00:00 [facility] 2022-03-22 2022-03-22 Outpatient OKUSANYA, [facility] [id number] [place] 07:50:12 07:53:39 [facility] 2022-03-22 2022-03-22 [facility] [id number] [place] 00:00:00 00:00:00 [facility] 2022-03-15 2022-03-15 Outpatient JB-NOEL [facility] [id number] [place] 13:28:03 14:27:30 [facility] 2022-03-15 2022-03-15 Outpatient OKUSANYA, [facility] [id number] [place] 00:00:00 00:00:00 [facility] 2022-02-27 2022-02-27 Outpatient CLEMENTE, [facility] [id number] [place] 12:33:31 14:12:54 [facility] 2022-01-16 2022-01-16 [facility] [id number] [place] 06:59:32 10:11:25 [facility] 2022-01-10 2022-01-10 Outpatient OKUSANYA, [facility] [id number] [place] 00:00:00 00:00:00 [facility] 2022-01-04 2022-01-04 Outpatient DONTA, [facility] [id number] [place] 00:00:00 00:00:00 R[facility] 2021-12-07 2021-12-07 Outpatient OKUSANYA, [facility] [id number] [place] 07:03:43 15:28:45 [facility] 2021-11-29 2021-11-29 Outpatient OKUSANYA, [facility] [id number] [place] 09:19:32 09:30:15 [facility] 2021-11-23 2021-11-23 Outpatient AZIZA JANG [facility] [id number] [place] 07:59:04 10:31:[address] [facility] 2021-10-25 2021-10-25 Outpatient ANGELIASIENAU [facility] [id number] [place] 00:00:00 00:00:[address] [facility] 2021-10-12 2021-10-12 Outpatient 3 [facility] [id number] [place] 14:28:53 14:34:[address] [facility] 2021-10-12 2021-10-12 Outpatient OKUSANYA, [facility] [id number] [place] 14:28:53 14:34:31 [facility] 2021-10-12 2021-10-12 Outpatient OKUSANYA, [facility] [id number] [place] 13:29:51 14:23:51 [facility] 2021-10-12 2021-10-12 Outpatient OKUSANYA, [facility] [id number] [place] 13:05:20 13:09:13 [facility] 2021-10-12 2021-10-12 Outpatient OKUSANYA, [facility] [id number] [place] 00:00:00 00:00:00 [facility] 2021-10-12 2021-10-12 Outpatient OKUSANYA, [facility] [id number] [place] 00:00:00 00:00:00 [facility] 2021-09-11 2021-09-11 Outpatient VANESSA, [facility] [id number] [place] 14:32:23 17:34:43 [facility] 2021-09-11 2021-09-11 Outpatient [facility] [id number] [place] 13:19:15 13:21:[address] [facility] 2021-09-11 2021-09-11 Outpatient [facility] [id number] [place] 00:00:00 00:00:00 MG Vaughn [facility] 2021-08-14 2021-08-14 Outpatient JONES-CLARA [facility] [id number] [place] 14:28:44 17:59:46 MMG [facility] 2021-08-14 2021-08-14 Outpatient [facility] [id number] [place] 14:04:25 14:06:[address] [facility] 2021-08-09 2021-08-09 Outpatient SIENA GALANU [facility] [id number] [place] 00:00:00 00:00:[address] [facility] 2021-07-10 2021-07-10 Outpatient EDILIA SANTANA [facility] [id number] [place] 13:22:00 14:31:[address] [facility] 2021-07-10 2021-07-10 Outpatient EDILIA SANTANA [facility] [id number] [place] 11:53:53 11:55:[address] [facility] 2021-07-10 2021-07-10 Outpatient EDILIA SANTANA [facility] [id number] [place] 00:00:00 00:00:[address] [facility] 2021-06-01 2021-06-01 Outpatient [facility] [id number] [place] 00:00:00 00:00:[address] [facility] 2021-05-19 2021-05-19 Outpatient HANDYPANKAJ [facility] [id number] [place] 09:12:52 09:46:24 ROSEANNE GREY [facility] 2021-04-10 2021-04-10 Outpatient EDILIA SANTANA [facility] [id number] [place] 15:05:41 16:47:[address] [facility] 2021-04-10 2021-04-10 Outpatient [facility] [id number] [place] 14:13:33 14:31:[address] [facility] 2021-04-10 2021-04-10 [facility] [id number] [place] 00:00:00 00:00:00 MAICOL Quintana 2021-03-13 2021-03-13 Outpatient TANIKA [facility] [id number] [place] 16:56:28 16:56:38 MAICOL Quintana 2021-03-03 2021-03-03 [facility] [id number] [place] 09:34:34 09:37:07 MAICOL [facility] 2021-03-03 2021-03-03 Outpatient OKUSAMATHIEU, [facility] [id number] [place] 08:30:14 09:15:43 [facility] 2021-03-03 2021-03-03 Outpatient OKUSANYA, [facility] [id number] [place] 00:00:00 00:00:00 [facility] 2021-01-26 2021-01-26 Outpatient SINHA [facility] [id number] [place] 09:16:15 12:48:12 Grace MERARIA 2021-01-26 2021-01-26 Outpatient SINHA [facility] [id number] [place] 00:00:00 00:00:00 Grace MERARIA 2020-12-20 2020-12-20 Outpatient OKUSANYA, [facility] [id number] [place] 08:44:12 08:46:19 [facility] 2020-12-06 2020-12-06 Outpatient OKUSANYA, [facility] [id number] [place] 09:51:21 14:38:26 [facility] 2020-11-28 2020-11-28 Outpatient OKUSALEANDRAA, [facility] [id number] [place] 08:58:08 09:04:39 [facility] 2020-11-28 2020-11-28 Outpatient OKUSANYA, [facility] [id number] [place] 08:32:50 09:01:00 [facility] 2020-11-25 2020-11-25 Outpatient OKUSALEANDRAA, [facility] [id number] [place] 15:42:40 16:58:09 [facility] 2020-09-13 2020-09-13 Outpatient [facility] [id number] [place] 00:00:00 00:00:[address] [facility] 2020-09-10 2020-09-10 [facility] [id number] [place] 10:33:11 10:34:07 [facility] 2020-09-01 2020-09-01 Outpatient [facility] [id number] [place] 00:00:00 00:00:[address] [facility] 2020-08-02 2020-08-02 Outpatient [facility] [id number] [place] 00:00:00 00:00:[address] [facility] 2018-08-19 2018-08-19 Outpatient [facility] [id number] [place] 00:00:00 00:00:[address] [facility] 2018-08-07 2018-08-07 Outpatient [facility] [id number] [place] 10:54:41 10:54:[address] [facility] 2018-07-22 2018-07-22 Outpatient [facility] [id number] [place] 15:34:05 15:34:[address] [facility] 2018-07-22 2018-07-22 Outpatient [facility] [id number] [place] 13:59:31 13:59:[address] [facility] 2018-06-30 2018-06-30 Outpatient [facility] [id number] [place] 10:02:01 10:02:[address] [facility] 2018-04-29 2018-04-29 Outpatient [facility] [id number] [place] 11:35:57 11:35:[address] [facility] 2018-04-15 2018-04-15 Outpatient [facility] [id number] [place] 12:13:55 12:13:[address] [facility] 2018-04-15 2018-04-15 Outpatient [facility] [id number] [place] 09:46:06 09:46:[address] [facility] 2018-04-08 2018-04-08 Outpatient [facility] [id number] [place] 10:13:14 10:13:[address] [facility] 2018-04-04 2018-04-04 Outpatient [facility] [id number] [place] 15:17:56 15:17:[address] [facility] 2018-04-04 2018-04-04 Outpatient [facility] [id number] [place] 14:09:27 14:09:[address] [facility] 2018-04-01 2018-04-01 Outpatient [facility] [id number] [place] 14:53:15 14:53:[address] [facility] 2018-04-01 2018-04-01 Outpatient [facility] [id number] [place] 00:00:00 00:00:[address] [facility] 2018-02-12 2018-02-12 Outpatient [facility] [id number] [place] 15:07:20 15:07:[address] [facility] 2018-01-10 2018-01-10 Outpatient [facility] [id number] [place] 07:59:36 07:59:[address] [facility] 2017-12-20 2017-12-20 Outpatient [facility] [id number] [place] 08:28:13 08:28:[address] [facility] 2017-12-10 2017-12-10 Outpatient [facility] [id number] [place] 08:46:09 08:46:[address] [facility] 2017-10-24 2017-10-24 Outpatient [facility] [id number] [place] 15:08:55 15:08:55 Health 2017-10-24 2017-10-24 Outpatient [facility] [id number] [place] 14:11:33 14:11:33 Health 2017-10-19 2017-10-19 Emergency [facility] [id number] [place] 09:24:38 09:24:38 Health 2017-09-23 2017-09-23 Outpatient [facility] [id number] [place] 14:03:01 14:03:01 Health 2017-08-12 2017-08-12 Outpatient [facility] [id number] [place] 11:54:45 11:54:45 Health 2017-08-12 2017-08-12 Outpatient [facility] [id number] [place] 11:33:56 11:33:56 Health 2017-08-12 2017-08-12 [facility] [id number] [place] 09:53:19 10:55:05 [facility] Results Test Description Test Time Test Comments Results Result Comments Source HIV 1+2 Ab+HIV1 p24 Ag SerPl Ql [place] 2021-10-12 21:33:14 Test Item Value Reference Range Interpretation Comme nts HIV 1+2 Ab+HIV1 p24 Ag SerPl Ql IA (test code = 14152-8) NEGATIVE Negative [id number] (COVID-19), RT-PCR/[id number] 10:54:39 Test Item Value Reference Interpretation Comments Range SARS-CoV-2 POSITIVE SEE NOTE A SARS-CoV-2 RNA INTERPRETATION DETECTEDPosit leeann results (test code = 59048) are jv cative of the presence of [...] code = NOT SPECIFIED Note: [place] [address]) Dave Ashlie A[place] l-Time RT-PCR. The exp ected result or [...] provided by met hod given in report:https:// www.[facility] [place]/clinician s/client-c ommunications/ Alternatively, see downloadable PD F fact sheet at:https://www. UShealthrecord.co m/MLQJA-38-XL-[email or web address] CR UNLESS OTHERWISE INDIC ATED, ALL TESTING PERFORM ED [facility] [place]. [address] [place] [id number] LABORATORY DIRE CTOR: Johana NOVA. CLIA NUMBER [id number] CAP ACCREDITATION N O. [id number]
--- NOTE | 2022-12-08 06:15 | ER ---
Nurse's Notes [facility] Name: Ramón Avilez Age: 62 yrs Sex: Male : 1960 Arrival Date: 12/08/2022 Time: 05:49 Bed 6 Private MD: Diagnosis: Pain in left knee;Pain in right knee;Pain in left ankle and joints of left foot Presentation: 12/08 06:06 Chief complaint: Patient states: I have been having a lot knee pain that it is ha1 bothering me. Coronavirus screen: Vaccine status: Patient reports receiving the 2nd dose of the covid vaccine. Moderna. Ebola Screen: No symptoms or risks identified at this time. Initial Sepsis Screen: Does the patient meet any 2 criteria? No. Patient's initial sepsis screen is negative. Does the patient have a suspected source of infection? No. Patient's initial sepsis screen is negative. Risk Assessment: Do you want to hurt yourself or someone else? Patient reports no desire to harm self or others. Onset of symptoms was December 08, 2022. 06:06 Method Of Arrival: Ambulatory ha1 06:06 Acuity: MEGN 4 ha1 Triage Assessment: 05:57 General: Appears uncomfortable, Behavior is calm, cooperative. Pain: Complains of pain ha1 in Bilateral knee Pain currently is 9 out of 10 on a pain scale. Pain began gradually, Alleviated by medications, Aggravated by exercise. Neuro: Level of Consciousness is awake, alert, obeys commands, Oriented to person, place, time, situation. Cardiovascular: Capillary refill < 3 seconds Patient's skin is warm and dry. Respiratory: Airway is patent Respiratory effort is even, unlabored, Respiratory pattern is regular, symmetrical. GI: No signs and/or symptoms were reported involving the gastrointestinal system. : No signs and/or symptoms were reported regarding the genitourinary system. Derm: Skin is pink, warm \T\ dry. Musculoskeletal: Circulation, motion, and sensation intact. Range of motion: intact in all extremities. Historical: - Allergies: 06:10 No Known Allergies; ha1 - Home Meds: 06:10 allopurinol 100 mg Oral tab 4 tabs once daily [Active]; amlodipine 10 mg tab 1 tab once ha1 daily [Active]; lisinopril 40 mg Oral tab 1 tab once daily [Active]; - PMHx: 06:10 Diabetes - NIDDM; Gout; High Cholesterol; Hypertension; ha1 - Immunization history:: Adult Immunizations up to date. - Social history:: Smoking status: Patient denies any tobacco usage or history of. Screenin:57 [facility] ED Fall Risk Assessment (Adult) History of falling in the last 3 months, ha1 including since admission No falls in past 3 months (0 pts) Confusion or Disorientation No (0 pts) Intoxicated or Sedated No (0 pts) Impaired Gait No (0 pts) Mobility Assist Device Used No (0 pt) Altered Elimination No (0 pt) Score/Fall Risk Level 0 - 2 = Low Risk Oriented to surroundings, Maintained a safe environment, Educated pt \T\ family on fall prevention, incl call for assistance when getting out of bed. 06:32 Abuse screen: Denies threats or abuse. Denies injuries from another. Nutritional ha1 screening: No deficits noted. Tuberculosis screening: No symptoms or risk factors identified. Assessment: 05:57 Reassessment: see triage assessment. ha1 Vital Signs: 06:06 BP 161 / 98; Pulse 70; Resp 18 S; Temp 98.2(O); Pulse Ox 97% on R/A; Weight 74.84 kg; ha1 Height 5 ft. 5 in. ; 06:06 Body Mass Index 27.46 (74.84 kg, 165.1 cm) 1 ED Course: 05:54 Patient arrived in ED. [id number] 05:55 Panfilo Roman DO is Attending Physician. ms3 05:57 Arm band placed on right wrist. ha1 05:57 Patient has correct armband on for positive identification. Bed in low position. Call ha1 light in reach. Side rails up X 1. 06:10 Triage completed. ha1 06:13 Rui Mabry MD is Referral Physician. ms3 06:33 No provider procedures requiring assistance completed. Patient did not have IV access ha1 during this emergency room visit. Administered Medications: 06:16 Drug: Ketorolac IM 15 mg Route: IM; Site: right deltoid; ha1 06:32 Follow up: Response: No adverse reaction ha1 06:25 Drug: Lidoderm Topical Patch 5 % (700 mg/patch) 1 patches {Note: administered on the ha1 left knee as instructed by care provider.} Route: Topical; Site: left thigh; 06:32 Follow up: Response: No adverse reaction ha1 Medication: 06:33 VIS not applicable for this client. ha1 Outcome: 06:14 Discharge ordered by . ms3 06:33 Discharged to home ambulatory. ha1 06:33 Condition: stable 06:33 Discharge instructions given to patient, Instructed on discharge instructions, follow up and referral plans. medication usage, Demonstrated understanding of instructions, follow-up care, medications, Prescriptions given X 1. 06:34 Patient left the ED. ha1 Signatures: Panfilo Roman DO DO ms3 Sonja Swift [email or web address] Sandy Calderon, RN RN ha1
--- NOTE | 2022-12-08 06:15 | EDPHYS ---
Physician Documentation [facility] Name: Ramón Avilez Age: 62 yrs Sex: Male : 1960 Arrival Date: 12/08/2022 Time: 05:49 Bed 6 Private MD: ED Physician Panfilo Roman HPI: 12/08 06:05 This 62 yrs old Male presents to ER via Unassigned with complaints of IVETTE ms3 ANKLE/KNEE PAIN. 06:05 62-year-old male with past medical history of hypertension and diabetes presents for ms3 bilateral knee and left ankle pain that has been ongoing for 20 years. Patient states he painted baseboards 2 days ago and aggravated the pain. Patient states pain is a 9/10. Patient denies alleviating or inciting factors. Historical: - Allergies: 06:10 No Known Allergies; ha1 - Home Meds: 06:10 allopurinol 100 mg Oral tab 4 tabs once daily [Active]; amlodipine 10 mg tab 1 tab once ha1 daily [Active]; lisinopril 40 mg Oral tab 1 tab once daily [Active]; - PMHx: 06:10 Diabetes - NIDDM; Gout; High Cholesterol; Hypertension; ha1 - Immunization history:: Adult Immunizations up to date. - Social history:: Smoking status: Patient denies any tobacco usage or history of. ROS: 06:05 Constitutional: Negative for fever, and chills. Neck: Negative for injury, pain, and ms3 swelling, Cardiovascular: Negative for chest pain, and palpitations. Respiratory: Negative for shortness of breath, cough, wheezing, and pleuritic chest pain, Abdomen/GI: Negative for abdominal pain, nausea, vomiting, diarrhea, and constipation. 06:05 MS/extremity: Positive for Knee and left ankle pain. Exam: 06:05 Constitutional: This is a well developed, well nourished patient who is awake, alert, ms3 and in no acute distress. Head/Face: Normocephalic, atraumatic. Neck: Trachea midline, no cervical lymphadenopathy. Supple, full range of motion without nuchal rigidity, or vertebral point tenderness. No Meningismus. Chest/axilla: Normal chest wall appearance and motion. Nontender with no deformity. Cardiovascular: Regular rate and rhythm with a normal S1 and S2. No gallops, murmurs, or rubs. Normal PMI, no JVD. No pulse deficits. Respiratory: Lungs have equal breath sounds bilaterally, clear to auscultation and percussion. No rales, rhonchi or wheezes noted. No increased work of breathing, no retractions or nasal flaring. Abdomen/GI: Soft, non-tender, with normal bowel sounds. No distension or tympany. No guarding or rebound. No evidence of tenderness throughout. Skin: Warm, dry with normal turgor. Normal color with no rashes, no lesions, and no evidence of cellulitis. 06:05 Musculoskeletal/extremity: Extremities: noted in the left and right knee: There is no evidence of contusion, deformity, erythema, swelling, noted in the left ankle: pain, no evidence of deformity, ecchymosis, erythema. Vital Signs: 06:06 BP 161 / 98; Pulse 70; Resp 18 S; Temp 98.2(O); Pulse Ox 97% on R/A; Weight 74.84 kg; ha1 Height 5 ft. 5 in. ; 06:06 Body Mass Index 27.46 (74.84 kg, 165.1 cm) ha1 MDM: 06:11 Differential Diagnosis OA vs over use vs contusion. Data reviewed: vital signs, nurses ms3 notes, and as a result, I will discharge patient. I considered the following discharge prescriptions or medication management in the emergency department Medications were administered in the Emergency Department. See MAR. Care significantly affected by the following chronic conditions: Diabetes, Hypertension. Counseling: I had a detailed discussion with the patient and/or guardian regarding: the historical points, exam findings, and any diagnostic results supporting the discharge/admit diagnosis, the need for outpatient follow up, to return to the emergency department if symptoms worsen or persist or if there are any questions or concerns that arise at home. Special discussion: I discussed with the patient/guardian in detail that at this point there is no indication for admission to the hospital. It is understood, however, that if the symptoms persist or worsen the patient needs to return immediately for re-evaluation. 06:13 Patient medically screened. ms3 Administered Medications: 06:16 Drug: Ketorolac IM 15 mg Route: IM; Site: right deltoid; ha1 06:32 Follow up: Response: No adverse reaction ha1 06:25 Drug: Lidoderm Topical Patch 5 % (700 mg/patch) 1 patches {Note: administered on the ha1 left knee as instructed by care provider.} Route: Topical; Site: left thigh; 06:32 Follow up: Response: No adverse reaction ha1 Disposition Summary: 12/08/22 06:14 Discharge Ordered Location: Home ms3 Condition: Stable ms3 Diagnosis - Pain in left knee ms3 - Pain in right knee ms3 - Pain in left ankle and joints of left foot ms3 Followup: ms3 - With: Rui Mabry MD - When: 2 - 3 days - Reason: Recheck today's complaints Discharge Instructions: - Discharge Summary Sheet ms3 - Musculoskeletal Pain ms3 Forms: - Medication Reconciliation Form ms3 - Thank You Letter ms3 - Antibiotic Education ms3 - Prescription Opioid Use ms3 Prescriptions: - Lidoderm 5 % Topical adhesive patch, medicated - apply 1 package by TOPICAL route per package directions leave on most painful ms3 area for up to 12 hrs; 5 patch; Refills: 0, Product Selection Permitted Signatures: Panfilo Roman DO DO ms3 Sandy Calderon, RN RN ha1
[2022-12-08] MEDS ORDERED: KETOROLAC 30 MG/ML INJ ONE (06:24)
[2022-12-08] MEDS ORDERED: LIDOCAINE 4% PATCH ONE (06:25)
[2022-12-08 06:38] VITALS: BP 161/98; TEMP 98.2; O2SAT 97
== END 2022-12-08 06:34 | disposition home or self-care (01) ==
LOC: ER 05:49
DX: M25.572 Pain in left ankle and joints of left foot (principal); M25.562 Pain in left knee; M25.561 Pain in right knee
CPT/HCPCS: 96372; 99284; J2001

== ENCOUNTER 2024-02-28 07:37 | Emergency (ER) | payer OTHER ==
--- NOTE | 2024-02-28 08:10 | EDPHYS ---
Physician Documentation [facility] Name: Ramón Avilez Age: 63 yrs Sex: Male : 1960 Arrival Date: 02/28/2024 Time: 07:37 Bed 5 Private MD: ED Physician Panfilo Roman HPI: 02/27 12:34 This 63 yrs old Male presents to ER via Ambulatory with complaints of Arm Pain.ms3 12:34 63-year-old male with past medical history of hypertension, diabetes, hyperlipidemia, ms3 gout presents to the emergency department for left wrist pain that began at 2 PM yesterday. Patient denies numbness, fevers, chills.. Historical: - Allergies: 07:58 No Known Allergies; hb - Home Meds: 07:58 allopurinol 100 mg Oral tab 4 tabs once daily [Active]; amlodipine 10 mg tab 1 tab once hb daily [Active]; lisinopril 40 mg Oral tab 1 tab once daily [Active]; - PMHx: 07:58 Diabetes - NIDDM; Gout; High Cholesterol; Hypertension; hb - Immunization history:: Adult Immunizations up to date. - Infectious Disease History:: Denies. - Social history:: Smoking status: Patient denies any tobacco usage or history of. ROS: 12:34 Constitutional: Negative for fever, and chills. Neck: Negative for injury, pain, and ms3 swelling, Cardiovascular: Negative for chest pain, and palpitations. Respiratory: Negative for shortness of breath, cough, wheezing, and pleuritic chest pain, Abdomen/GI: Negative for abdominal pain, nausea, vomiting, diarrhea, and constipation, 12:34 MS/extremity: Positive for Left wrist pain, Exam: 12:34 Constitutional: This is a well developed, well nourished patient who is awake, alert, ms3 and in no acute distress. Chest/axilla: Normal chest wall appearance and motion. Nontender with no deformity. Cardiovascular: Regular rate and rhythm with a normal S1 and S2. No gallops, murmurs, or rubs. Normal PMI, no JVD. No pulse deficits. Respiratory: Lungs have equal breath sounds bilaterally, clear to auscultation and percussion. No rales, rhonchi or wheezes noted. No increased work of breathing, no retractions or nasal flaring. Skin: Warm, dry with normal turgor. Normal color with no rashes, no lesions, and no evidence of cellulitis. 12:34 Musculoskeletal/extremity: Extremities: noted in the Left wrist: pain, swelling, tenderness, There is no evidence of erythema, Vital Signs: 07:54 BP 159 / 110; Pulse 77; Resp 16; Temp 97.3(TE); Pulse Ox 100% on R/A; Weight 77.11 kg hb (R); Height 5 ft. 5 in. ; Pain 7/10; 08:45 BP 170 / 98; Pulse 69; Resp 18 S; Pulse Ox 98% on R/A; aa5 07:54 Body Mass Index 28.29 (77.11 kg, 165.1 cm) hb 07:54 Pain Scale: Adult hb MDM: 08:09 Patient medically screened. ms3 12:34 Differential diagnosis: Gout versus sprain versus strain versus overuse injury. Data ms3 reviewed: vital signs, nurses notes, and as a result, I will discharge patient. I considered the following discharge prescriptions or medication management in the emergency department Medications were administered in the Emergency Department. See MAR. Care significantly affected by the following chronic conditions: Diabetes, Hypertension. Counseling: I had a detailed discussion with the patient and/or guardian regarding the historical points, exam findings, and any diagnostic results supporting the discharge/admit diagnosis, the need for outpatient follow up, to return to the emergency department if symptoms worsen or persist or if there are any questions or concerns that arise at home. Special discussion: I discussed with the patient/guardian in detail that at this point there is no indication for admission to the hospital. It is understood, however, that if the symptoms persist or worsen the patient needs to return immediately for re-evaluation. ED course: Discussed physical exam findings with patient. Patient given 1.2 mg colchicine in the emergency department. Patient to follow-up with primary care physician in 2 to 3 days. Patient understands agrees with plan. All questions were answered. Return precautions discussed include worsening symptoms, or any other concerns. 02/27 08:10 Order name: Wrist Splint: Pre ward; Complete Time: 08:41 ms3 Administered Medications: 08:48 Drug: Ketorolac IM 15 mg IM once Route: IM; Site: left deltoid; aa5 09:05 Follow up: Response: No adverse reaction aa5 08:49 CANCELLED (Physician Discretion): colchicine 0.5 mg 1.2 mg PO once aa5 08:50 Drug: colchicine 0.6 mg 2 caps PO once Route: PO; aa5 09:05 Follow up: Response: No adverse reaction aa5 Disposition Summary: 02/28/24 08:09 Discharge Ordered Notes: Location: Home ms3 Condition: Stable ms3 Diagnosis - Gout, unspecified ms3 - Pain in left wrist ms3 Followup: ms3 - With: Dain Donohue DO - When: 2 - 3 days - Reason: Recheck today's complaints Discharge Instructions: - Discharge Summary Sheet ms3 - Gout, [id number] ms3 Forms: - Medication Reconciliation Form ms3 - Antibiotic Education ms3 - Prescription Opioid Use ms3 - Patient Portal Instructions ms3 - Leadership Thank You Letter ms3 Prescriptions: - colchicine 0.6 mg Oral tablet - take 1 tablet ORAL route daily; 20 tablet; Refills: 0, Product Selection ms3 Permitted - indomethacin 50 mg Oral capsule - take 1 capsule ORAL route 3 times per day administer with food or milk; 20 ms3 capsule; Refills: 0, Product Selection Permitted - Metformin 1,000 mg Oral Tablet - take 1 tablet ORAL route every 12 hours with morning and evening meals; 20 ms3 tablet; Refills: 0, Product Selection Permitted Signatures: Beatrice Ayala RN RN aa5 No Cummins RN RN Panfilo Roman DO DO ms3 Corrections: (The following items were deleted from the chart) 08:49 08:08 colchicine 0.5 mg 1.2 mg PO once ordered. ms3 aa5 08:49 08:49 colchicine 0.5 mg 1.2 mg PO once ordered. aa5 aa5
--- NOTE | 2024-02-28 08:10 | ER ---
Nurse's Notes [facility] Name: Ramón Avilez Age: 63 yrs Sex: Male : 1960 Arrival Date: 02/28/2024 Time: 07:37 Bed 5 Private MD: Diagnosis: Gout, unspecified;Pain in left wrist Presentation: 02/27 07:54 Chief complaint: Left wrist pain that radiates to elbow and shoulder x 2 days. Hx of hb gout, feels similar to previous flare. Coronavirus screen: At this time, the client does not indicate any symptoms associated with coronavirus-19. Ebola Screen: No symptoms or risks identified at this time. Initial Sepsis Screen: Does the patient meet any 2 criteria? No. Patient's initial sepsis screen is negative. Does the patient have a suspected source of infection? No. Patient's initial sepsis screen is negative. Risk Assessment: Do you want to hurt yourself or someone else? Patient reports no desire to harm self or others. Onset of symptoms was February 27, 2024. 07:54 Method Of Arrival: Ambulatory hb 07:54 Acuity: MENG 3 hb Historical: - Allergies: 07:58 No Known Allergies; hb - Home Meds: 07:58 allopurinol 100 mg Oral tab 4 tabs once daily [Active]; amlodipine 10 mg tab 1 tab once hb daily [Active]; lisinopril 40 mg Oral tab 1 tab once daily [Active]; - PMHx: 07:58 Diabetes - NIDDM; Gout; High Cholesterol; Hypertension; hb - Immunization history:: Adult Immunizations up to date. - Infectious Disease History:: Denies. - Social history:: Smoking status: Patient denies any tobacco usage or history of. Screenin:00 [facility] ED Fall Risk Assessment (Adult) History of falling in the last 3 months, aa5 including since admission No falls in past 3 months (0 pts) Confusion or Disorientation No (0 pts) Intoxicated or Sedated No (0 pts) Impaired Gait No (0 pts) Mobility Assist Device Used No (0 pt) Altered Elimination No (0 pt) Score/Fall Risk Level 0 - 2 = Low Risk Oriented to surroundings, Maintained a safe environment, Educated pt \T\ family on fall prevention, incl call for assistance when getting out of bed. Abuse screen: Denies threats or abuse. Nutritional screening: No deficits noted. Tuberculosis screening: No symptoms or risk factors identified. Assessment: 08:00 General: Appears uncomfortable, Behavior is calm, cooperative. Pain: Complains of pain aa5 in left wrist Pain currently is 8 out of 10 on a pain scale. Quality of pain is described as tender, Is continuous. Neuro: Level of Consciousness is awake, alert, obeys commands, Oriented to person, place, time, situation. Cardiovascular: Patient's skin is warm and dry. Respiratory: Airway is patent Respiratory effort is even, unlabored, Respiratory pattern is regular, symmetrical. GI: No signs and/or symptoms were reported involving the gastrointestinal system. : No signs and/or symptoms were reported regarding the genitourinary system. EENT: No signs and/or symptoms were reported regarding the EENT system. Derm: Skin is pink, warm \T\ dry. Musculoskeletal: Swelling present in left wrist. 09:05 Reassessment: Patient is alert, oriented x 3, equal unlabored respirations, skin aa5 warm/dry/pink. Vital Signs: 07:54 BP 159 / 110; Pulse 77; Resp 16; Temp 97.3(TE); Pulse Ox 100% on R/A; Weight 77.11 kg hb (R); Height 5 ft. 5 in. ; Pain 7/10; 08:45 BP 170 / 98; Pulse 69; Resp 18 S; Pulse Ox 98% on R/A; aa5 07:54 Body Mass Index 28.29 (77.11 kg, 165.1 cm) hb 07:54 Pain Scale: Adult hb ED Course: 07:42 Patient arrived in ED. mg5 07:49 Panfilo Roman DO is Attending Physician. ms3 07:52 Beatrice Ayala, RN is Primary Nurse. aa5 07:58 Triage completed. hb 07:58 Arm band placed on. hb 08:00 Patient has correct armband on for positive identification. Bed in low position. Call aa5 light in reach. Side rails up X 1. 08:00 Pulse ox on. NIBP on. aa5 08:09 Dain Donohue DO is Referral Physician. ms3 09:05 No provider procedures requiring assistance completed. Patient did not have IV access aa5 during this emergency room visit. Administered Medications: 08:48 Drug: Ketorolac IM 15 mg IM once Route: IM; Site: left deltoid; aa5 09:05 Follow up: Response: No adverse reaction aa5 08:49 CANCELLED (Physician Discretion): colchicine 0.5 mg 1.2 mg PO once aa5 08:50 Drug: colchicine 0.6 mg 2 caps PO once Route: PO; aa5 09:05 Follow up: Response: No adverse reaction aa5 Medication: 09:05 VIS not applicable for this client. aa5 Outcome: 08:09 Discharge ordered by . ms3 09:05 Discharged to home ambulatory, aa5 09:05 Condition: stable 09:05 Discharge instructions given to patient, Instructed on discharge instructions, follow up and referral plans. medication usage, Demonstrated understanding of instructions, follow-up care, medications, Prescriptions given X 3, 09:09 Patient left the ED. iw Signatures: Brigitte Shearer RN RN Beatrice Ayala RN RN aa5 No Cummins RN RN Panfilo Roman DO DO ms3 MenesesNaomie mg5 Corrections: (The following items were deleted from the chart) 07:59 07:54 BP 159 / 110; Pulse 77bpm; Resp 16bpm; Pulse Ox 100% RA; Temp 97.3F Temporal; hb Pain 7/10, Adult; hb
[2024-02-28] MEDS ORDERED: KETOROLAC 30 MG/ML INJ ONE (08:43)
[2024-02-28] MEDS ORDERED: COLCHICINE 0.6 MG TAB ONE (08:43)
[2024-02-28 09:13] VITALS: TEMP 97.3
[2024-02-28 09:14] VITALS: BP 170/98; O2SAT 98
== END 2024-02-28 09:09 | disposition home or self-care (01) ==
LOC: ER 07:37
DX: M10.9 Gout, unspecified (principal)
CPT/HCPCS: 96372; 99284

== ENCOUNTER 2024-06-26 18:17 | Emergency (ER) | payer OTHER ==
[2024-06-26] MEDS ORDERED: NA CHLORIDE 0.9% 1,000 ML ONE ×2 (18:51→20:01)
[2024-06-26 19:08] LABS: PT Prothrombin Time 10.9 SECONDS (9.4-12.5); Protime INR 0.97
[2024-06-26 19:12] LABS: Absolute Basophils 0.1 K/uL (0-0.5); Absolute Eosinophils 0.1 K/uL (0-0.5); Absolute Lymphocytes (CBC) 1.9 K/uL (0.7-4.9); Absolute Monocytes 0.5 K/uL (0.1-1.3); Absolute Neutrophil 3.7 K/uL (1.8-8.0); Basophils % 0.9 % (0-1.3); Eosinophils % 1.4 % (0-4.4); Hematocrit 39.5 % (39.6-49.0); Hemoglobin 13.4 g/dL (13.6-17.9); Lymphocytes % 30.7 % (15.3-44.8); MCH 28.4 pg (27.0-35.0); MCHC 33.9 g/dL (32.0-36.0); MCV 83.6 fL (80-100); MPV 8.8 fL (7.6-11.3); Monocytes % 7.5 % (3.3-12.3); Neutrophils % 59.5 % (41.7-73.7); Nucleated Red Blood Cells % 0.2 % (0-0); Platelets 238 thou/uL (152-406); RBC Red Blood Cell Count 4.72 M/uL (4.33-5.43); Red Cell Distribution Width 15.1 % (12.1-15.2)
[2024-06-26 19:25] LABS: ALT/SGPT 26 U/L (16-61); AST/SGOT 12 U/L (15-37); Albumin 3.7 g/dL (3.4-5.0); Alkaline Phosphatase 108 U/L (45-117); BUN Blood Urea Nitrogen 20 mg/dL (7-18); Bicarbonate 25 mEq/L (21-32); Bilirubin Total 0.4 mg/dL (0.2-1.0); Globulin 3.7 g/dL (2.3-3.5); Glomerular Filtration Rate 71 ml/min (=/>90); Lipase 58 U/L (13-75); Magnesium 1.4 mg/dL (1.6-2.4); NT PRO-BNP 68 pg/mL (<125); Protein, Total 7.4 g/dL (6.4-8.2); Sodium Level 137 mEq/L (136-145); Troponin High Sensitivity 9.6 pg/mL (<58.9)
[2024-06-26 19:28] LABS: Bilirubin Direct < 0.2 mg/dL (0-0.2); Bilirubin Indirect, Calculated 0.2 mg/dL (0.2-0.8)
[2024-06-26 19:29] LABS: Glucose Level 420 mg/dL (74-106)
--- NOTE | 2024-06-26 19:35 | RAD REPORT ---
EXAM: Chest Single View HISTORY: COUGH COMPARISON: 11/21/2022 FINDINGS: LUNGS/PLEURA: The lungs are clear. No pleural effusions or pneumothorax. No pulmonary edema. MEDIASTINUM: The mediastinal silhouette is within normal limits. CARDIAC: Mild cardiomegaly. UPPER ABDOMEN: No significant abnormality. BONES: No acute fracture. LINES/TUBES/OTHER: N/A IMPRESSION: No evidence of acute cardiopulmonary disease.
[2024-06-26] MEDS ORDERED: POTASSIUM 25 MEQ EFFERV TAB ONE ×2 (19:58→21:01)
[2024-06-26] MEDS ORDERED: INSULIN GLARGINE 100 UNIT/ML SQ ONE (19:59)
[2024-06-26] MEDS ORDERED: INSULIN REGULAR (HUMAN) 100 UNIT/ML ONE (20:01)
[2024-06-26] MEDS ORDERED: MAGNESIUM SULFATE 1 gm IVPB 1 GM/100 ML BAG IV ONE (20:01)
--- NOTE | 2024-06-26 20:24 | ER ---
Nurse's Notes [facility] Name: Ramón Avilez Age: 63 yrs Sex: Male : 1960 Arrival Date: 06/26/2024 Time: 18:17 Bed 20 Private MD: Diagnosis: Type 2 diabetes mellitus with hyperglycemia;Hypomagnesemia;Hypokalemia Presentation: 06/26 18:22 Chief complaint: Patient states: about 4 days ago I was using the restroom a lot, I am ko1 having a hard time at home, it was in the 400's. Coronavirus screen: At this time, the client does not indicate any symptoms associated with coronavirus-19. Ebola Screen: No symptoms or risks identified at this time. Initial Sepsis Screen: Does the patient meet any 2 criteria? No. Patient's initial sepsis screen is negative. Does the patient have a suspected source of infection? No. Patient's initial sepsis screen is negative. Risk Assessment: Do you want to hurt yourself or someone else? Patient reports no desire to harm self or others. Onset of symptoms was June 26, 2024. 18:22 Method Of Arrival: Ambulatory ko1 18:22 Acuity: MENG 3 ko1 Triage Assessment: 18:26 General: Appears in no apparent distress. Behavior is calm, cooperative, appropriate ko1 for age. Pain: Denies pain. Historical: - Allergies: 18:26 No Known Allergies; ko1 - PMHx: 18:26 Diabetes - NIDDM; Gout; High Cholesterol; Hypertension; ko1 - PSHx: 18:26 None; ko1 - Immunization history:: Adult Immunizations unknown. - Infectious Disease History:: Denies. - Social history:: Smoking status: Patient denies any tobacco usage or history of. Screenin:00 [facility] ED Fall Risk Assessment (Adult) History of falling in the last 3 months, kc6 including since admission No falls in past 3 months (0 pts) Confusion or Disorientation No (0 pts) Intoxicated or Sedated No (0 pts) Impaired Gait No (0 pts) Mobility Assist Device Used No (0 pt) Altered Elimination No (0 pt) Score/Fall Risk Level 0 - 2 = Low Risk Oriented to surroundings, Maintained a safe environment. Abuse screen: Denies threats or abuse. Denies injuries from another. Nutritional screening: No deficits noted. Tuberculosis screening: No symptoms or risk factors identified. Assessment: 18:55 General: Appears in no apparent distress. comfortable, well groomed, well developed, kc6 Behavior is calm, cooperative, appropriate for age. Pain: Denies pain. Neuro: Level of Consciousness is awake, alert, obeys commands, Oriented to person, place, time, situation, Appropriate for age. Cardiovascular: Capillary refill < 3 seconds. Respiratory: Airway is patent Trachea midline Respiratory effort is even, unlabored, Respiratory pattern is regular, symmetrical. GI: No signs and/or symptoms were reported involving the gastrointestinal system. : Reports urinary frequency. EENT: No signs and/or symptoms were reported regarding the EENT system. Derm: No signs and/or symptoms reported regarding the dermatologic system. Skin is intact, is healthy with good turgor, Skin is pink, warm \T\ dry. Musculoskeletal: No signs and/or symptoms reported regarding the musculoskeletal system. Circulation, motion, and sensation intact. Capillary refill < 3 seconds, Range of motion: intact in all extremities. 20:31 Reassessment: Pt has magnesium running. D/C on hold until mag done. ay Vital Signs: 18:22 BP 156 / 91; Pulse 74; Resp 15; Temp 97.6; Pulse Ox 99% ; ko1 ED Course: 18:20 Patient arrived in ED. ra3 18:26 Triage completed. ko1 18:26 Arm band placed on right wrist. Patient placed in an exam room, on a stretcher, on ko1 pulse oximetry, Patient notified of wait time. 18:28 Jp Wilks MD is Attending Physician. [facility] 18:35 Lory Cornell, DAVID is Primary Nurse. kc6 19:00 Patient has correct armband on for positive identification. Bed in low position. Call kc6 light in reach. Side rails up X 1. Pulse ox on. NIBP on. Door closed. Noise minimized. Lights dimmed. Warm blanket given. Pillow given. 19:00 Inserted saline lock: 20 gauge in right forearm, using aseptic technique. Blood kc6 collected. Flushed with 10 mL NS. 19:00 Patient maintains SpO2 saturation greater than 95% on room air. kc6 19:09 Report given to DAVID Hugo. kc6 19:26 XRAY Chest (1 view) In Process Unspecified. EDMS 19:29 Notified ED physician of a critical lab result(s). Glucose 420. vc1 20:24 Dain Donohue DO is Referral Physician. seema 20:38 Initiated transfer with Jennyfer at [facility]. rv1 20:55 Doc to Doc with trauma doctor at [facility]. rv1 20:58 Pt accepted to [facility] ER by Dr. Wang. rv1 21:22 Provided Education on: plan of care. ay 21:22 No provider procedures requiring assistance completed. IV discontinued, intact, ay bleeding controlled, No redness/swelling at site. Pressure dressing applied. Administered Medications: 19:00 Drug: NS 0.9% IV 1000 ml IV at 1000 ml once; to be given as a bolus over 60 minutes kc6 Route: IV; Rate: 1000 ml; Site: right forearm; 21:22 Follow up: Response: No adverse reaction; IV Status: Completed infusion; IV Intake: ay 1000ml 20:20 Drug: Potassium PO Effervescent Tablet 50 mEq PO once; dissolve in 4 ounces of water or ay juice Route: PO; 21:21 Follow up: Response: No adverse reaction ay 20:20 Drug: Magnesium Sulfate IVPB 1 grams IVPB once over 1 hrs Route: IVPB; Infused Over: 1 ay hrs; Site: right antecubital; 21:20 Follow up: Response: No adverse reaction ay 21:26 Follow up: IV Status: Completed infusion; IV Intake: 100ml ay 20:21 Drug: NS 0.9% IV 1000 ml IV at 1000 ml once; to be given as a bolus over 60 minutes ay Route: IV; Rate: 1000 ml; Site: right antecubital; 21:21 Follow up: Response: No adverse reaction; IV Status: Completed infusion; IV Intake: ay 1000ml 21:26 Follow up: IV Status: Completed infusion ay 20:29 Drug: Insulin Glargine Sub-Q 30 units Sub-Q once {Co-Signature: alexis (Bethel Gomes RN).} Route: Sub-Q; Site: right lower abdomen; 21:21 Follow up: Response: No adverse reaction ay 20:30 Drug: Insulin Regular Human IVP 10 units IVP once {Co-Signature: alexis (Bethel Gomes RN).} Route: IVP; Site: right antecubital; 21:21 Follow up: Response: No adverse reaction ay 21: Drug: Potassium PO Effervescent Tablet 25 mEq PO once; dissolve in 4 ounces of water or bm8 juice Route: PO; 21:20 Follow up: Response: No adverse reaction ay 21: Drug: Magnesium Oxide PO 400 mg PO once; administer with meals Route: PO; bm8 : Follow up: Response: No adverse reaction ay Intake: 21: IV: 1000ml; Total: 1000ml. ay 21:22 IV: 1000ml; Total: 2000ml. ay : IV: 100ml; Total: 2100ml. ay Outcome: :24 Discharge ordered by . seema : Discharged to home ambulatory, ay : Condition: stable 21: Discharge instructions given to patient, Instructed on discharge instructions, follow up and referral plans. medication usage, glucose monitoring 21:25 Patient left the ED. ay Signatures: Dispatcher [employer] EDMS Jp Wilks MD MD cha Calcote, Vanessa RN RN 1 Lory Cornell RN RN [id number] Marianela Fajardo, RN RN ko1 Marine Alexandre rv1 Cathy Meza ra3 Bethel Gomse, RN RN bm8 Hong Woodward RN DAVID ay Bethel Gomes RN bm8 Corrections: (The following items were deleted from the chart) 21:33 20:58 Initiated transfer with Jennyfer at [facility] rv1 rv1
--- NOTE | 2024-06-26 20:25 | EDPHYS ---
Physician Documentation [facility] Name: Ramón Avilez Age: 63 yrs Sex: Male : 1960 Arrival Date: 06/26/2024 Time: 18:17 Bed 20 Private MD: ED Physician Jp Wilks HPI: 06/26 19:39 This 63 yrs old Male presents to ER via Ambulatory with complaints of High seema Blood Sugar. 19:39 The patient or guardian reports hyperglycemia, that was potentially precipitated by no seema particular event. Onset: The symptoms/episode began/occurred 3 day(s) ago. Associated signs and symptoms: Pertinent positives: polydipsia, polyphagia, polyuria. Current symptoms: In the emergency department the patient's symptoms are unchanged from the initial presentation. The patient has experienced similar episodes in the past, several times. Historical: - Allergies: 18:26 No Known Allergies; ko1 - PMHx: 18:26 Diabetes - NIDDM; Gout; High Cholesterol; Hypertension; ko1 - PSHx: 18:26 None; ko1 - Immunization history:: Adult Immunizations unknown. - Infectious Disease History:: Denies. - Social history:: Smoking status: Patient denies any tobacco usage or history of. ROS: 19:40 Constitutional: Negative for fever, chills, and weight loss, Eyes: Negative for injury, seema pain, redness, and discharge, ENT: Negative for injury, pain, and discharge, Neck: Negative for injury, pain, and swelling, Cardiovascular: Negative for chest pain, palpitations, and edema, Respiratory: Negative for shortness of breath, cough, wheezing, and pleuritic chest pain, Abdomen/GI: Negative for abdominal pain, nausea, vomiting, diarrhea, and constipation, Back: Negative for injury and pain, MS/Extremity: Negative for injury and deformity, Skin: Negative for injury, rash, and discoloration, Neuro: Negative for headache, weakness, numbness, tingling, and seizure, Psych: Negative for depression, anxiety, suicide ideation, homicidal ideation, and hallucinations, Allergy/Immunology: Negative for hives, rash, and allergies, Endocrine: Negative for neck swelling, polydipsia, polyuria, polyphagia, and marked weight changes, Hematologic/Lymphatic: Negative for swollen nodes, abnormal bleeding, and unusual bruising, 19:40 : Positive for urinary frequency, Exam: 19:40 Constitutional: This is a well developed, well nourished patient who is awake, alert, seema and in no acute distress. Head/Face: Normocephalic, atraumatic. Eyes: Pupils equal round and reactive to light, extra-ocular motions intact. Lids and lashes normal. Conjunctiva and sclera are non-icteric and not injected. Cornea within normal limits. Periorbital areas with no swelling, redness, or edema. ENT: Nares patent. No nasal discharge, no septal abnormalities noted. Tympanic membranes are normal and external auditory canals are clear. Oropharynx with no redness, swelling, or masses, exudates, or evidence of obstruction, uvula midline. Mucous membranes moist. Neck: Trachea midline, no thyromegaly or masses palpated, and no cervical lymphadenopathy. Supple, full range of motion without nuchal rigidity, or vertebral point tenderness. No Meningismus. Chest/axilla: Normal chest wall appearance and motion. Nontender with no deformity. No lesions are appreciated. Cardiovascular: Regular rate and rhythm with a normal S1 and S2. No gallops, murmurs, or rubs. Normal PMI, no JVD. No pulse deficits. Respiratory: Lungs have equal breath sounds bilaterally, clear to auscultation and percussion. No rales, rhonchi or wheezes noted. No increased work of breathing, no retractions or nasal flaring. Abdomen/GI: Soft, non-tender, with normal bowel sounds. No distension or tympany. No guarding or rebound. No evidence of tenderness throughout. Back: No spinal tenderness. No costovertebral tenderness. Full range of motion. Male : Normal genitalia with no discharge or lesions. Skin: Warm, dry with normal turgor. Normal color with no rashes, no lesions, and no evidence of cellulitis. MS/ Extremity: Pulses equal, no cyanosis. Neurovascular intact. Full, normal range of motion., bilateral aka Neuro: Awake and alert, GCS 15, oriented to person, place, time, and situation. Cranial nerves II-XII grossly intact. Motor strength 5/5 in all extremities. Sensory grossly intact. Cerebellar exam normal. Normal gait. Psych: Awake, alert, with orientation to person, place and time. Behavior, mood, and affect are within normal limits. 19:40 ECG was reviewed by the Attending Physician. Vital Signs: 18:22 BP 156 / 91; Pulse 74; Resp 15; Temp 97.6; Pulse Ox 99% ; ko1 MDM: 18:28 Medical Screening Exam initiated seema 19:42 Differential diagnosis: DKA, hyperglycemia. Data reviewed: vital signs, nurses notes, [facility] lab test result(s), EKG, radiologic studies, plain films. Consideration of Admission/Observation Escalation of care including admission/observation considered. I considered the following discharge prescriptions or medication management in the emergency department Medications were administered in the Emergency Department. See MAR. Independent interpretation of the following test(s) in the Emergency Department EKG: See my EKG interpretation above. Test considered but Not performed: Ultrasound NO ABDOMINAL USG. Historians other than the Patient: PT WELL INFORMED. Care significantly affected by the following chronic conditions: Diabetes, Hypertension, Obesity. Counseling: I had a detailed discussion with the patient and/or guardian regarding the historical points, exam findings, and any diagnostic results supporting the discharge/admit diagnosis, the presence of at least one elevated blood pressure reading (>120/80) during this emergency department visit, lab results, radiology results, the need for outpatient follow up, for definitive care, a family practitioner, an hoseman. 06/26 18:29 Order name: Basic Metabolic Panel; Complete Time: 19:37 [facility] 06/26 18:29 Order name: CBC with Diff; Complete Time: 19:37 [facility] 06/26 18:29 Order name: LFT's; Complete Time: 19:37 [facility] 06/26 18:29 Order name: Magnesium; Complete Time: 19:37 [facility] 06/26 18:29 Order name: NT PRO-BNP; Complete Time: 19:37 [facility] 06/26 18:29 Order name: PT-INR; Complete Time: 19:37 [facility] 06/26 18:29 Order name: Troponin HS; Complete Time: 19:37 [facility] 06/26 18:29 Order name: Lipase; Complete Time: 19:37 [facility] 06/26 20:18 Order name: Glucose, Ancillary Testing; Complete Time: 20:23 EDMS 06/26 18:29 Order name: XRAY Chest (1 view); Complete Time: 19:37 [facility] 06/26 18:29 Order name: EKG; Complete Time: 18:30 [facility] 06/26 18:29 Order name: Cardiac monitoring; Complete Time: 18:46 [facility] 06/26 18:29 Order name: EKG - Nurse/Tech; Complete Time: 18:46 [facility] 06/26 18:29 Order name: IV Saline Lock; Complete Time: 19:00 [facility] 06/26 18:29 Order name: Labs collected and sent; Complete Time: 19:00 [facility] 06/26 18:29 Order name: O2 Per Protocol; Complete Time: 18:36 [facility] 06/26 18:29 Order name: O2 Sat Monitoring; Complete Time: 18:36 [facility] EC:40 Rate is 67 beats/min. Rhythm is regular. QRS [place] is Normal. [place] interval is normal. QRS seema interval is normal. QT interval is normal. No Q waves. T waves are Inverted in leads II, III, aVF, V6. No ST changes noted. Clinical impression: NSR w/ Non-specific ST/T Changes and No evidence of ischemia. Interpreted by me. Reviewed by me. Administered Medications: 19:00 Drug: NS 0.9% IV 1000 ml IV at 1000 ml once; to be given as a bolus over 60 minutes kc6 Route: IV; Rate: 1000 ml; Site: right forearm; 21:22 Follow up: Response: No adverse reaction; IV Status: Completed infusion; IV Intake: ay 1000ml 20:20 Drug: Potassium PO Effervescent Tablet 50 mEq PO once; dissolve in 4 ounces of water or ay juice Route: PO; 21:21 Follow up: Response: No adverse reaction ay 20:20 Drug: Magnesium Sulfate IVPB 1 grams IVPB once over 1 hrs Route: IVPB; Infused Over: 1 ay hrs; Site: right antecubital; 21:20 Follow up: Response: No adverse reaction ay 21:26 Follow up: IV Status: Completed infusion; IV Intake: 100ml ay 20:21 Drug: NS 0.9% IV 1000 ml IV at 1000 ml once; to be given as a bolus over 60 minutes ay Route: IV; Rate: 1000 ml; Site: right antecubital; 21:21 Follow up: Response: No adverse reaction; IV Status: Completed infusion; IV Intake: ay 1000ml 21:26 Follow up: IV Status: Completed infusion ay 20:29 Drug: Insulin Glargine Sub-Q 30 units Sub-Q once {Co-Signature: bm8 (Bethel Gomes RN).} Route: Sub-Q; Site: right lower abdomen; 21:21 Follow up: Response: No adverse reaction ay 20:30 Drug: Insulin Regular Human IVP 10 units IVP once {Co-Signature: bm8 (Bethel Gomes RN).} Route: IVP; Site: right antecubital; 21:21 Follow up: Response: No adverse reaction ay 21:00 Drug: Potassium PO Effervescent Tablet 25 mEq PO once; dissolve in 4 ounces of water or bm8 juice Route: PO; 21:20 Follow up: Response: No adverse reaction ay 21:00 Drug: Magnesium Oxide PO 400 mg PO once; administer with meals Route: PO; bm8 21:20 Follow up: Response: No adverse reaction ay Disposition Summary: 06/26/24 20:24 Discharge Ordered Notes: Location: Home seema Problem: new seema Symptoms: have improved seema Condition: Stable seema Diagnosis - Type 2 diabetes mellitus with hyperglycemia seema - Hypomagnesemia seema - Hypokalemia seema Followup: seema - With: Private Physician - When: 2 - 3 days - Reason: Recheck today's complaints, Continuance of care, Re-evaluation by your physician Followup: seema - With: Dain Donohue DO - When: 2 - 3 days - Reason: Recheck today's complaints, Re-evaluation by your physician Discharge Instructions: - Discharge Summary Sheet seema - Type 2 Diabetes Mellitus, Diagnosis, Adult seema - Potassium Content of Foods seema - Hyperglycemia seema - Hypomagnesemia seema - Daily Diabetes Mellitus Record seeam - Blood Glucose Monitoring, Adult seema - Diabetes Mellitus and Nutrition, Adult seema - Hyperglycemia, [id number] seema - Type 2 Diabetes Mellitus, Diagnosis, Adult, [id number] seema - Hypokalemia seema - Type 2 Diabetes Mellitus, Self-Care, Adult seema - Type 2 Diabetes Mellitus, Self-Care, Adult, [id number] [facility] Forms: - Medication Reconciliation Form seema - Antibiotic Education seema - Prescription Opioid Use seema - Patient Portal Instructions [facility] - Leadership Thank You Letter [facility] Prescriptions: - Glucotrol XL 5 mg Oral Tablet, Extended Release 24 hr - take 1 tablet ORAL route daily; 20 tablet; Refills: 0, Product Selection seema Permitted - MagOx 400 mg (241.3 mg magnesium) Oral tablet - take 1 tablet ORAL route 2 times per day; 10 tablet; Refills: 0, Product seema Selection Permitted - Potassium Chloride 20 meq Oral Packet - take 1 packet ORAL route once daily 1 packet in 6 (six) ounces of water ; Take seema after meal; 20 packet; Refills: 0, Product Selection Permitted - Metformin 1,000 mg Oral tablet - take 1 tablet ORAL route every 12 hours with morning and evening meals; 40 seema tablet; Refills: 0, Product Selection Permitted Signatures: Dispatcher [employer] Jp Juarez MD MD cha Campbell, Kaitlyn RN RN kc6 Marianela Fajardo RN RN ko1 Bethel Gomes, RN RN bm8 Hong Woodward RN Bethel Cisse RN bm8
[2024-06-26] MEDS ORDERED: MAGNESIUM OXIDE 400 MG TAB ONE (21:00)
[2024-06-26 21:38] VITALS: BP 156/91; TEMP 97.6; O2SAT 99
--- NOTE | 2024-06-30 12:08 | EKG ---
Test Date: 2024-06-26 Test Time: 18:43:43 Java Support Engineer: MARCO A MEASUREMENT RESULTS: Intervals: Rate: 67 DE: 160 QRSD: 94 QT: 432 QTc: 456 [place]: P: 38 DE: 160 QRS: -11 T: -47 INTERPRETIVE STATEMENTS: Normal sinus rhythm ST & T wave abnormality, consider inferior ischemia Abnormal ECG Compared to ECG 11/21/2022 20:29:56 ST (T wave) deviation now present Possible ischemia now present T-wave abnormality no longer present Electronically Signed On 06-30-24 12:05:01 SHOP TECHNICIAN by Derik Lozada
== END 2024-06-26 21:25 | disposition home or self-care (01) ==
LOC: ER 18:17
DX: E11.65 Type 2 diabetes mellitus with hyperglycemia (principal); E83.42 Hypomagnesemia; E87.6 Hypokalemia; I10 Essential (primary) hypertension
CPT/HCPCS: 96365; 96361; 85025; 80048; 36415; 83735; 85610; 82947; 80076; 84484; 83690; 83880; 71045; 96375; 96372; 99284; J3475; J7030 ×2; 93005

== ENCOUNTER 2024-06-27 17:43 | Emergency (ER) | payer OTHER ==
[2024-06-27 18:57] LABS: Arterial Blood Carboxyhemoglob 0.8 % (0-1.5); Blood Gas Oxyhemoglobin 93.6 % (94-97); Blood O2 Saturation 96.4 % (92-98.5)
[2024-06-27 18:58] LABS: Blood Gas THB 13.8 g/dl (12-18)
[2024-06-27 19:09] LABS: Specific Gravity > 1.030 (1.005-1.030); Urine Bilirubin NEGATIVE (Negative); Urine Blood Negative (Negative); Urine Clarity Clear (Clear); Urine Color Colorless (Yellow); Urine Glucose 4+ (Over) (Negative); Urine Ketones NEGATIVE (Negative); Urine Microscopic Reflex YN NO UMIC; Urine Nitrite NEGATIVE (Negative); Urine Protein NEGATIVE (Negative); Urine Urobilinogen Normal (Normal); Urine pH 5.5 (5.0-7.0)
[2024-06-27] MEDS ORDERED: NA CHLORIDE 0.9% 1,000 ML ONE (19:39)
[2024-06-27 19:52] LABS: Absolute Basophils 0.1 K/uL (0-0.5); Absolute Eosinophils 0.1 K/uL (0-0.5); Absolute Lymphocytes (CBC) 2.4 K/uL (0.7-4.9); Absolute Monocytes 0.6 K/uL (0.1-1.3); Absolute Neutrophil 3.4 K/uL (1.8-8.0); Basophils % 0.9 % (0-1.3); Eosinophils % 1.2 % (0-4.4); Hematocrit 39.7 % (39.6-49.0); Hemoglobin 13.2 g/dL (13.6-17.9); Lymphocytes % 36.8 % (15.3-44.8); MCH 28.2 pg (27.0-35.0); MCHC 33.3 g/dL (32.0-36.0); MCV 84.8 fL (80-100); MPV 8.8 fL (7.6-11.3); Monocytes % 8.5 % (3.3-12.3); Neutrophils % 52.6 % (41.7-73.7); Platelets 234 thou/uL (152-406); RBC Red Blood Cell Count 4.68 M/uL (4.33-5.43); Red Cell Distribution Width 15.3 % (12.1-15.2)
[2024-06-27 20:05] LABS: Albumin 3.9 g/dL (3.4-5.0); Albumin/Globulin Ratio 1.1 (1.1-1.8); Anion Gap 11.1 mEq/L (5.0-15.0); Bilirubin Total 0.4 mg/dL (0.2-1.0); Globulin 3.5 g/dL (2.3-3.5); Potassium 3.1 mEq/L (3.5-5.1); Protein, Total 7.4 g/dL (6.4-8.2)
--- NOTE | 2024-06-27 20:44 | ER ---
Nurse's Notes [facility] Name: Rmaón Avilez Age: 63 yrs Sex: Male : 1960 Arrival Date: 06/27/2024 Time: 17:43 Bed 7 Private MD: Diagnosis: Hyperglycemia, unspecified Presentation: 06/27 17:49 Chief complaint: Patient states: High blood sugar for 2 days. 550 today. Seen yesterday ll1 for the same, taking medications as prescribed. Coronavirus screen: Client denies travel out of the [place] in the last 14 days. At this time, the client does not indicate any symptoms associated with coronavirus-19. Ebola Screen: Patient denies travel to an Ebola-affected area in the 21 days before illness onset. Initial Sepsis Screen: Does the patient meet any 2 criteria? No. Patient's initial sepsis screen is negative. Does the patient have a suspected source of infection? No. Patient's initial sepsis screen is negative. Risk Assessment: Do you want to hurt yourself or someone else? Patient reports no desire to harm self or others. Onset of symptoms was June 26, 2024. 17:49 Method Of Arrival: Ambulatory ll1 17:49 Acuity: MENG 2 ll1 Triage Assessment: 17:54 General: Appears in no apparent distress. Behavior is calm, cooperative, appropriate ll1 for age, Reports high blood sugar. Pain: Denies pain. Neuro: No deficits noted. Historical: - Allergies: 17:50 No Known Allergies; ll1 - PMHx: 17:50 Diabetes - NIDDM; Gout; High Cholesterol; Hypertension; ll1 - PSHx: 17:50 None; ll1 - Immunization history:: Adult Immunizations up to date. - Infectious Disease History:: Denies. - Social history:: Smoking status: Patient denies any tobacco usage or history of. Screenin:10 [facility] ED Fall Risk Assessment (Adult) History of falling in the last 3 months, cp4 including since admission No falls in past 3 months (0 pts) Confusion or Disorientation No (0 pts) Intoxicated or Sedated No (0 pts) Impaired Gait No (0 pts) Mobility Assist Device Used No (0 pt) Altered Elimination No (0 pt) Score/Fall Risk Level 0 - 2 = Low Risk Oriented to surroundings, Maintained a safe environment, Assessed \T\ reinforced patient's understanding of fall precautions, Hourly rounding (assess needs \T\ fall precautionary measures) done. Abuse screen: Denies threats or abuse. Nutritional screening: No deficits noted. Tuberculosis screening: No symptoms or risk factors identified. Assessment: 19:10 General: Appears in no apparent distress. comfortable, Behavior is calm, cooperative, cp4 appropriate for age. Pain: Denies pain. Neuro: Level of Consciousness is awake, alert, obeys commands, Oriented to person, place, time, situation. 19:10 Cardiovascular: Patient's skin is warm and dry. Respiratory: Airway is patent cp4 Respiratory effort is even, unlabored. GI: No signs and/or symptoms were reported involving the gastrointestinal system. : No signs and/or symptoms were reported regarding the genitourinary system. EENT: No signs and/or symptoms were reported regarding the EENT system. Derm: No signs and/or symptoms reported regarding the dermatologic system. Musculoskeletal: No signs and/or symptoms reported regarding the musculoskeletal system. Vital Signs: 17:49 BP 162 / 94; Pulse 67; Resp 17; Temp 97.7; Pulse Ox 99% ; Weight 78.02 kg; Height 5 ft. ll1 5 in. ; Pain 0/10; 20:13 BP 137 / 86; Pulse 60; Resp 18; Pulse Ox 100% ; cp4 21:04 BP 120 / 68; Pulse 55; Resp 18; Pulse Ox 98% ; cp4 17:49 Body Mass Index 28.62 (78.02 kg, 165.1 cm) ll1 17:49 Pain Scale: Adult ll1 ED Course: 17:46 Patient arrived in ED. mr 17:50 Triage completed. ll1 17:50 Marley Lyle FNP-C is [facility]. kb 17:50 Rj Vera MD is Attending Physician. kb 17:54 Arm band placed on. ll1 17:55 Notified Charge Nurse of Fingerstick 443. ll1 18:58 Neeraj Rodriguez, DAVID is Primary Nurse. bp 19:03 Urinalysis w/ reflexes Sent. em1 19:03 Urine collected: clean catch specimen. em1 19:10 Bed in low position. Call light in reach. Side rails up X 1. Provided Education on: cp4 hyperglycemia. 19:10 No provider procedures requiring assistance completed. cp4 19:44 CMP Sent. oe 19:44 CBC with Diff Sent. oe 19:44 Inserted saline lock: 22 gauge in right antecubital area, using aseptic technique. oe Blood collected. Flushed with 10 mL NS. 21:07 intact, bleeding controlled, No redness/swelling at site. Pressure dressing applied. cp4 Administered Medications: 19:56 Drug: NS 0.9% IV 1000 ml IV at 1000 ml once; to be given as a bolus over 60 minutes cp4 Route: IV; Rate: 1000 ml; Site: right antecubital; 21:04 Follow up: Response: No adverse reaction; IV Status: Completed infusion cp4 20:58 Drug: Potassium Chloride PO 40 mEq PO once Route: PO; cp4 21:04 Follow up: Response: No adverse reaction cp4 Medication: 19:10 VIS not applicable for this client. cp4 Outcome: 20:43 Discharge ordered by . kb 21:07 Discharged to home ambulatory, cp4 21:07 Condition: stable 21:07 Discharge instructions given to patient, Instructed on discharge instructions, follow up and referral plans. Demonstrated understanding of instructions, follow-up care, 21:08 Patient left the ED. cp4 Signatures: Marley Lyle, [employer]-C [employer]-Ckb Anjali Villarreal, Percy Reg mr Rene Arce em1 Tommy Hansen Brian, DAVID RN Deep Engel RN RN ll1 Rosemarie Vazquez cp4
--- NOTE | 2024-06-27 20:44 | EDPHYS ---
Physician Documentation [facility] Name: Ramón Avilez Age: 63 yrs Sex: Male : 1960 Arrival Date: 06/27/2024 Time: 17:43 Bed 7 Private MD: ED Physician Rj Vera HPI: 06/27 23:48 This 63 yrs old Male presents to ER via Ambulatory with complaints of High kb Blood Sugar. 23:48 Patient is a 63-year-old male with a history of diabetes who presents for high blood kb sugar. States he started having urinary frequency 2 days ago and his sugar was in the 200s. Came in yesterday for sugar in the 400s and was sent home. Comes in today because his sugar is still running high. States has been taking his metformin as prescribed. States he has no symptoms today.. Historical: - Allergies: 17:50 No Known Allergies; ll1 - PMHx: 17:50 Diabetes - NIDDM; Gout; High Cholesterol; Hypertension; ll1 - PSHx: 17:50 None; ll1 - Immunization history:: Adult Immunizations up to date. - Infectious Disease History:: Denies. - Social history:: Smoking status: Patient denies any tobacco usage or history of. ROS: 23:48 Constitutional: As per HPI kb Exam: 23:48 Constitutional: This is a well developed, well nourished patient who is awake, alert, kb and in no acute distress. Head/Face: Normocephalic, atraumatic. ENT: Moist Mucous membranes Cardiovascular: Regular rate Respiratory: Respirations even and unlabored. No increased work of breathing. Talking in full sentences Abdomen/GI: Soft, non-tender. No distention Skin: Warm, dry with normal turgor. Normal color. MS/ Extremity: Pulses equal, no cyanosis. Neurovascular intact. Full, normal range of motion. Neuro: Awake and alert, GCS 15, oriented to person, place, time, and situation. Vital Signs: 17:49 BP 162 / 94; Pulse 67; Resp 17; Temp 97.7; Pulse Ox 99% ; Weight 78.02 kg; Height 5 ft. ll1 5 in. ; Pain 0/10; 20:13 BP 137 / 86; Pulse 60; Resp 18; Pulse Ox 100% ; cp4 21:04 BP 120 / 68; Pulse 55; Resp 18; Pulse Ox 98% ; cp4 17:49 Body Mass Index 28.62 (78.02 kg, 165.1 cm) ll1 17:49 Pain Scale: Adult ll1 MDM: 17:50 Medical Screening Exam initiated kb 23:49 Differential diagnosis: DKA, hyperglycemia. Data reviewed: vital signs, nurses notes. kb Counseling: I had a detailed discussion with the patient and/or guardian regarding the historical points, exam findings, and any diagnostic results supporting the discharge/admit diagnosis, lab results, the need for outpatient follow up, a family practitioner, to return to the emergency department if symptoms worsen or persist or if there are any questions or concerns that arise at home. 06/27 17:54 Order name: CBC with Diff; Complete Time: 20:04 ll1 06/27 17:54 Order name: CMP; Complete Time: 20:21 ll1 06/27 17:54 Order name: Urinalysis w/ reflexes; Complete Time: 19:28 ll1 06/27 17:54 Order name: ABG; Complete Time: 19:06 ll1 06/27 18:04 Order name: Glucose, Ancillary Testing; Complete Time: 18:04 EDMS 06/27 21:00 Order name: Glucose, Ancillary Testing; Complete Time: 21:04 EDMS 06/27 17:54 Order name: IV Start; Complete Time: 19:56 ll1 06/27 20:43 Order name: Blood Glucose Level; Complete Time: 20:48 kb Administered Medications: 19:56 Drug: NS 0.9% IV 1000 ml IV at 1000 ml once; to be given as a bolus over 60 minutes cp4 Route: IV; Rate: 1000 ml; Site: right antecubital; 21:04 Follow up: Response: No adverse reaction; IV Status: Completed infusion cp4 20:58 Drug: Potassium Chloride PO 40 mEq PO once Route: PO; cp4 21:04 Follow up: Response: No adverse reaction cp4 Disposition Summary: 06/27/24 20:43 Discharge Ordered Notes: Location: Home Condition: Stable kb Diagnosis - Hyperglycemia, unspecified kb Followup: kb - With: Emergency Department - When: As needed - Reason: Worsening of condition Followup: kb - With: Private Physician - When: 2 - 3 days - Reason: Recheck today's complaints, Continuance of care, Re-evaluation by your physician Discharge Instructions: - Discharge Summary Sheet kb - Hyperglycemia, [id number] kb Forms: - Medication Reconciliation Form kb - Antibiotic Education kb - Prescription Opioid Use kb - Patient Portal Instructions kb - Leadership Thank You Letter kb Signatures: Dispatcher [employer] ED Marley Lyle, HAND UMBRELLA TIPPER-C TICO-Deep Theodore RN RN ll1 Rosemarie Vazquez cp4 Corrections: (The following items were deleted from the chart) 17:54 17:54 CBC+H.LAB.BRZ ordered. EDMS EDMS 17:54 17:54 COMPREHENSIVE METABOLIC PANEL+C.LAB.BRZ ordered. EDMS EDMS 17:54 17:54 Urinalysis+U.LAB.BRZ ordered. EDMS EDMS 17:54 17:54 Arterial Blood Gas+RC.LAB.BRZ ordered. EDMS EDMS
[2024-06-27] MEDS ORDERED: POTASSIUM CL SA 10 MEQ TAB PO ONE (20:51)
[2024-06-27 21:13] VITALS: TEMP 97.7
[2024-06-27 21:16] VITALS: BP 120/68; O2SAT 98
== END 2024-06-27 21:08 | disposition home or self-care (01) ==
LOC: ER 17:43
DX: E11.65 Type 2 diabetes mellitus with hyperglycemia (principal)
CPT/HCPCS: 85025; 36415; 82947 ×2; 81003; 80053; 82805; 96360; 99284; 36600; J7030

== ENCOUNTER 2024-06-29 23:46 | Emergency (ER) | payer OTHER ==
[2024-06-30] MEDS ORDERED: NA CHLORIDE 0.9% 1,000 ML ONE ×2 (00:21→00:47)
[2024-06-30 00:52] LABS: Specific Gravity 1.013 (1.005-1.030); Urine Bilirubin NEGATIVE (Negative); Urine Blood Negative (Negative); Urine Clarity Clear (Clear); Urine Color Colorless (Yellow); Urine Glucose TRACE (Negative); Urine Ketones NEGATIVE (Negative); Urine Microscopic Reflex YN NO UMIC; Urine Nitrite NEGATIVE (Negative); Urine Protein NEGATIVE (Negative); Urine Urobilinogen Normal (Normal); Urine pH 5.5 (5.0-7.0)
[2024-06-30 00:54] LABS: Absolute Basophils 0.1 K/uL (0-0.5); Absolute Eosinophils 0.1 K/uL (0-0.5); Absolute Lymphocytes (CBC) 3.1 K/uL (0.7-4.9); Absolute Monocytes 0.7 K/uL (0.1-1.3); Absolute Neutrophil 3.6 K/uL (1.8-8.0); Basophils % 0.8 % (0-1.3); Eosinophils % 1.8 % (0-4.4); Hemoglobin 13.8 g/dL (13.6-17.9); Lymphocytes % 40.1 % (15.3-44.8); MCH 28.6 pg (27.0-35.0); MCHC 34.5 g/dL (32.0-36.0); MPV 8.8 fL (7.6-11.3); Monocytes % 9.6 % (3.3-12.3); Neutrophils % 47.7 % (41.7-73.7); Nucleated Red Blood Cells % 0.2 % (0-0); Platelets 242 thou/uL (152-406); RBC Red Blood Cell Count 4.82 M/uL (4.33-5.43); Red Cell Distribution Width 15.3 % (12.1-15.2)
[2024-06-30 01:13] LABS: Albumin 3.8 g/dL (3.4-5.0); Albumin/Globulin Ratio 1.1 (1.1-1.8); Anion Gap 13.6 mEq/L (5.0-15.0); Bilirubin Total 0.5 mg/dL (0.2-1.0); Globulin 3.6 g/dL (2.3-3.5); Protein, Total 7.4 g/dL (6.4-8.2)
[2024-06-30 01:14] LABS: Potassium 2.6 mEq/L (3.5-5.1)
[2024-06-30] MEDS ORDERED: POTASSIUM 25 MEQ EFFERV TAB ONE (02:54)
--- NOTE | 2024-06-30 02:57 | ER ---
Nurse's Notes [facility] Name: Ramón Avilez Age: 63 yrs Sex: Male : 1960 Arrival Date: 06/29/2024 Time: 23:46 Bed 7 Private MD: Diagnosis: Hypokalemia;Muscular Fasciculations Presentation: 06/29 23:58 Chief complaint: Patient states: I WAS SLEEPING AND SUDDENLY I FELT A DISCOMFORT ha1 SENSATION ON THE LEFT SIDE OF MY CHEST AND I FELT VERY WEIRD SO I THOUGHT MY SUGAR LEVELS WERE HIGH. 23:58 Coronavirus screen: At this time, the client does not indicate any symptoms associated ha1 with coronavirus-19. Ebola Screen: No symptoms or risks identified at this time. Initial Sepsis Screen: Does the patient meet any 2 criteria? No. Patient's initial sepsis screen is negative. Does the patient have a suspected source of infection? No. Patient's initial sepsis screen is negative. Risk Assessment: Do you want to hurt yourself or someone else? Patient reports no desire to harm self or others. Onset of symptoms was June 30, 2024. 23:58 Method Of Arrival: Ambulatory ha1 23:58 Acuity: MENG 2 ha1 Triage Assessment: 06/30 00:11 General: Appears comfortable, Behavior is calm, cooperative. Pain: Complains of pain in ha1 LEFT SIDE OF CHEST Pain does not radiate. Quality of pain is described as pressure. Neuro: Level of Consciousness is awake, alert, obeys commands, Oriented to person, place, time, situation. Cardiovascular: Capillary refill Patient's skin is warm and dry. Cardiovascular: Reports chest pain. Respiratory: Airway is patent Respiratory effort is even, unlabored, Respiratory pattern is regular, symmetrical. Historical: - Allergies: 00:11 No Known Allergies; ha1 - Home Meds: 00:11 lisinopril 40 mg Oral tab 1 tab once daily [Active]; Metformin Oral [Active]; ha1 - PMHx: 00:11 Diabetes - NIDDM; Gout; High Cholesterol; Hypertension; ha1 - Immunization history:: Adult Immunizations up to date. - Infectious Disease History:: Denies. - Social history:: Smoking status: Patient denies any tobacco usage or history of. - Family history:: not pertinent. Screenin:15 [facility] ED Fall Risk Assessment (Adult) History of falling in the last 3 months, ha1 including since admission No falls in past 3 months (0 pts) Confusion or Disorientation No (0 pts) Intoxicated or Sedated No (0 pts) Impaired Gait No (0 pts) Mobility Assist Device Used No (0 pt) Altered Elimination No (0 pt) Score/Fall Risk Level 0 - 2 = Low Risk Oriented to surroundings, Maintained a safe environment, Educated pt \T\ family on fall prevention, incl call for assistance when getting out of bed, Hourly rounding (assess needs \T\ fall precautionary measures) done. Abuse screen: Denies threats or abuse. Denies injuries from another. Nutritional screening: No deficits noted. Tuberculosis screening: No symptoms or risk factors identified. Assessment: 00:00 General: Appears in no apparent distress. comfortable, Behavior is calm, cooperative. ay Pain: Complains of pain in left lateral anterior chest Pain does not radiate. Pain currently is 3 out of 10 on a pain scale. 00:00 Neuro: Level of Consciousness is awake, alert, obeys commands, Oriented to person, ay place, time, situation, Speech is normal. Cardiovascular: Heart tones S1 S2 Capillary refill < 3 seconds Rhythm is sinus bradycardia. Respiratory: Airway is patent Trachea Respiratory effort is even, unlabored, Respiratory pattern is regular, symmetrical. GI: Abdomen is round Bowel sounds present X 4 quads. : No signs and/or symptoms were reported regarding the genitourinary system. EENT: No signs and/or symptoms were reported regarding the EENT system. Derm: No signs and/or symptoms reported regarding the dermatologic system. Musculoskeletal: No signs and/or symptoms reported regarding the musculoskeletal system. 01:47 Reassessment: No changes from previously documented assessment. Patient and/or family ay updated on plan of care and expected duration. Pain level reassessed. Patient is alert, oriented x 3, equal unlabored respirations, skin warm/dry/pink. Patient denies pain at this time. 02:44 General: Low K of 2.6 MD Hyman notified. ay Vital Signs: 06/29 23:58 BP 171 / 97; Pulse 58; Resp 18 S; Temp 97.7(O); Pulse Ox 99% on R/A; Weight 78.02 kg; ha1 Height 5 ft. 5 in. ; 06/30 00:00 BP 119 / 82; Pulse 52; Resp 18; Pulse Ox 99% on R/A; ay 01:46 BP 134 / 71; Pulse 51; Resp 18; Pulse Ox 99% on R/A; ay 03:14 BP 154 / 97; Pulse 53; Resp 18; Pulse Ox 98% on R/A; ay 06/29 23:58 Body Mass Index 28.62 (78.02 kg, 165.1 cm) ha1 [place] Coma Score: 00:45 Eye Response: spontaneous(4). Motor Response: obeys commands(6). Verbal Response: ay oriented(5). Total: 15. 02:53 Eye Response: spontaneous(4). Motor Response: obeys commands(6). Verbal Response: sp4 oriented(5). Total: 15. NIH Stroke Scale Scores: 00:12 NIHSS Score: 0 sp4 ED Course: 06/29 23:52 Patient arrived in ED. im 23:57 Ernie Hyman MD is Attending Physician. sp4 06/30 00:10 Inserted saline lock: 20 gauge in right antecubital area, using aseptic technique. br2 Blood collected. Flushed with 10 mL NS. 00:11 Triage completed. ha1 00:16 Hong Woodward, RN is Primary Nurse. ay 00:45 No provider procedures requiring assistance completed. ay 00:45 Patient has correct armband on for positive identification. Bed in low position. Call ay light in reach. Side rails up X2. Provided Education on: plan of care. 03:15 IV discontinued, intact, bleeding controlled, No redness/swelling at site. Pressure ay dressing applied. 03:17 Arm band placed on right wrist. ay Administered Medications: 00:30 Drug: NS 0.9% IV 1000 ml IV at 1 bolus Per protocol; to be given as a bolus over 60 ay minutes Route: IV; Rate: 1 bolus; Site: right antecubital; 01:49 Follow up: IV Status: Completed infusion; IV Intake: 1000ml ay 03:01 Follow up: Response: No adverse reaction; IV Status: Completed infusion; IV Intake: ay 1000ml 01:48 Drug: NS 0.9% IV 1000 ml IV at 1 bolus Per protocol; to be given as a bolus over 60 ay minutes Route: IV; Rate: 1 bolus; Site: right antecubital; 02:37 Follow up: Response: No adverse reaction; IV Status: Completed infusion; IV Intake: bm8 1000ml 03:01 Drug: Potassium PO Effervescent Tablet 50 mEq PO once; dissolve in 4 ounces of water or ay juice Route: PO; 03:02 Follow up: Response: No adverse reaction ay Medication: 03:15 VIS not applicable for this client. ay Intake: 01:49 IV: 1000ml; Total: 1000ml. ay 02:37 IV: 1000ml; Total: 2000ml. bm8 03:01 IV: 1000ml; Total: 3000ml. ay Outcome: 02:56 Discharge ordered by . sp4 03:15 Discharged to home ambulatory, ay 03:15 Condition: stable 03:15 Discharge instructions given to patient, Instructed on discharge instructions, follow up and referral plans. medication usage, 03:17 Patient left the ED. ay NIH Stroke Scale - NIH Stroke Score Date: 06/30/2024 Time: 00:12 Total Score = 0 10. Dysarthria (speech clarity - read or repeat words) - 0(Normal) 11. Extinction and Inattention (visual/tactile/auditory/spatial/personal) - 0(No abnormality) 1a. Level of Consciousness (LOC) - 0(Alert) 1b. Level of Consciousness (LOC) (Month \T\ Age) - 0(Both) 1c. LOC Commands (Open \T\ Closes Eyes/Senior Front End Developer) - 0(Both) 2. Best Gaze (Lateral Gaze Paresis) - 0(Normal) 3. Visual Field Loss - 0(No visual loss) 4. Facial Palsy - 0(Normal) 5a. Left Arm: Motor (10-second hold) - 0(No drift) 5b. Right Arm: Motor (10-second hold) - 0(No drift) 6a. Left Leg: Motor (5-second hold - always test supine) - 0(No drift) 6b. Right Leg: Motor (5-second hold - always test supine) - 0(No drift) 7. Limb Ataxia (finger/nose \T\ heel/felipe - test with eyes open) - 0(Absent) 8. Sensory Loss (pinprick arms/legs/face) - 0(Normal) 9. Best Language: Aphasia (description/naming/reading) - 0(No aphasia) Initials: sp4 Signatures: Sandy Calderon, RN RN ha1 Ernie Hyman MD MD sp4 Cora Howard Brad, RN RN bm8 Rosina Vargas RN RN br2 Hong Woodward, RN RN ay
--- NOTE | 2024-06-30 02:57 | EDPHYS ---
Physician Documentation [facility] Name: Ramón Avilez Age: 63 yrs Sex: Male : 1960 Arrival Date: 06/29/2024 Time: 23:46 Bed 7 Private MD: ED Physician Ernie Hyman HPI: 06/29 23:57 This 63 yrs old Male presents to ER via Unassigned with complaints of High sp4 Blood Sugar, Urinary Frequency. 06/30 02:52 Patient is a very pleasant 63-year-old male who woke up this morning feeling unwell and sp4 feeling primarily tremors . Patient presents here for concern of blood sugar elevation.. 04:55 Patient states he is worried about blood sugar.. sp4 Historical: - Allergies: 00:11 No Known Allergies; ha1 - Home Meds: 00:11 lisinopril 40 mg Oral tab 1 tab once daily [Active]; Metformin Oral [Active]; ha1 - PMHx: 00:11 Diabetes - NIDDM; Gout; High Cholesterol; Hypertension; ha1 - Immunization history:: Adult Immunizations up to date. - Infectious Disease History:: Denies. - Social history:: Smoking status: Patient denies any tobacco usage or history of. - Family history:: not pertinent. ROS: 02:53 Constitutional: Negative for fever, chills, and weight loss, positive for tremors and sp4 shakes 02:53 All other systems are negative, Exam: 02:53 Constitutional: This is a well developed, well nourished patient who is awake, alert, sp4 and in no acute distress. Head/Face: Normocephalic, atraumatic. Eyes: Pupils equal round and reactive to light, extra-ocular motions intact. Lids and lashes normal. Conjunctiva and sclera are not injected. Cornea within normal limits. Periorbital areas with no swelling, redness, or edema. ENT: Nares patent. No nasal discharge, no septal abnormalities noted. Tympanic membranes are normal and external auditory canals are clear. Oropharynx with no redness, swelling, or masses, exudates, or evidence of obstruction, uvula midline. Mucous membranes moist. Neck: Trachea midline, no thyromegaly or masses palpated, and no cervical lymphadenopathy. Supple, full range of motion without nuchal rigidity, or vertebral point tenderness. Chest/axilla: Normal chest wall appearance and motion. Nontender with no deformity. No lesions are appreciated. Cardiovascular: Regular rate and rhythm with a normal S1 and S2. No gallops, murmurs, or rubs. Normal PMI, no JVD. No pulse deficits. Respiratory: Lungs have equal breath sounds bilaterally, clear to auscultation and percussion. No rales, rhonchi or wheezes noted. No increased work of breathing, no retractions or nasal flaring. Abdomen/GI: Soft, with normal bowel sounds. No distension or tympany. No guarding or rebound. No evidence of tenderness throughout. Back: No spinal tenderness. No costovertebral tenderness. Skin: Warm, dry with normal turgor. Normal color with no rashes, no lesions, and no evidence of cellulitis. MS/ Extremity: Pulses equal, no cyanosis. Neurovascular intact. Full, normal range of motion. Neuro: Awake and alert, GCS 15, oriented to person, place, time, and situation. Cranial nerves II-XII grossly intact. Motor strength 5/5 in all extremities. Sensory grossly intact. Psych: Awake, alert, with orientation to person, place and time. Behavior, mood, and affect are within normal limits 02:53 ECG was reviewed by the Attending Physician. EKG at 0012 sinus bradycardia at rate 58, left axis deviation, left ventricular hypertrophy. Vital Signs: 06/29 23:58 BP 171 / 97; Pulse 58; Resp 18 S; Temp 97.7(O); Pulse Ox 99% on R/A; Weight 78.02 kg; ha1 Height 5 ft. 5 in. ; 06/30 00:00 BP 119 / 82; Pulse 52; Resp 18; Pulse Ox 99% on R/A; ay 01:46 BP 134 / 71; Pulse 51; Resp 18; Pulse Ox 99% on R/A; ay 03:14 BP 154 / 97; Pulse 53; Resp 18; Pulse Ox 98% on R/A; ay 06/29 23:58 Body Mass Index 28.62 (78.02 kg, 165.1 cm) ha1 NIH Stroke Scale Scores: 00:12 NIHSS Score: 0 sp4 [place] Coma Score: 00:45 Eye Response: spontaneous(4). Motor Response: obeys commands(6). Verbal Response: ay oriented(5). Total: 15. 02:53 Eye Response: spontaneous(4). Motor Response: obeys commands(6). Verbal Response: sp4 oriented(5). Total: 15. MDM: 00:01 Medical Screening Exam initiated sp4 04:55 Differential diagnosis: diabetes insipidus, DKA, hyperglycemia, hyperthyroidism, sp4 hypothyroidism. Data reviewed: vital signs, nurses notes, lab test result(s), EKG. ED course: Patient was given supplemental potassium. Otherwise stable for discharge home. Will prescribe glucometer also testing strips and lancets for blood sugar management. 06/29 23:57 Order name: CBC with Diff; Complete Time: 02:47 sp4 06/29 23:57 Order name: CMP; Complete Time: 02:47 sp4 06/29 23:57 Order name: Lipase; Complete Time: 02:47 sp4 06/29 23:57 Order name: Urinalysis w/ reflexes; Complete Time: 02:47 sp4 06/30 00:16 Order name: Glucose, Ancillary Testing; Complete Time: 02:47 EDMS 06/29 23:57 Order name: IV Saline Lock; Complete Time: 00:35 sp4 16 23:57 Order name: Labs collected and sent; Complete Time: 00:35 sp4 06/29 23:57 Order name: Accucheck Blood Glucose; Complete Time: 00:30 sp4 EC:12 Rate is 58 beats/min. Rhythm is regular, Sinus bradycardia. Left axis deviation noted. sp4 MO interval is normal. QRS interval is normal. QT interval is normal. No Q waves. T waves are Normal. No ST changes noted. Clinical impression: No evidence of ischemia. Interpreted by me. Reviewed by me. Administered Medications: 00:30 Drug: NS 0.9% IV 1000 ml IV at 1 bolus Per protocol; to be given as a bolus over 60 ay minutes Route: IV; Rate: 1 bolus; Site: right antecubital; 01:49 Follow up: IV Status: Completed infusion; IV Intake: 1000ml ay 03:01 Follow up: Response: No adverse reaction; IV Status: Completed infusion; IV Intake: ay 1000ml 01:48 Drug: NS 0.9% IV 1000 ml IV at 1 bolus Per protocol; to be given as a bolus over 60 ay minutes Route: IV; Rate: 1 bolus; Site: right antecubital; 02:37 Follow up: Response: No adverse reaction; IV Status: Completed infusion; IV Intake: bm8 1000ml 03:01 Drug: Potassium PO Effervescent Tablet 50 mEq PO once; dissolve in 4 ounces of water or ay juice Route: PO; 03:02 Follow up: Response: No adverse reaction ay Disposition Summary: 06/30/24 02:56 Discharge Ordered Notes: Location: Home sp4 Problem: new sp4 Symptoms: have improved sp4 Condition: Stable sp4 Diagnosis - Hypokalemia sp4 - Muscular Fasciculations sp4 Followup: sp4 - With: Private Physician - When: 7 - 10 days - Reason: Recheck today's complaints Discharge Instructions: - Discharge Summary Sheet sp4 - Hypokalemia sp4 Forms: - Patient Portal Instructions sp4 Prescriptions: - Dispense 100 Diabetic Lancets ( One [place] ) with One Refill - 0 Use in combination with Glucometer and Testing Strips as directed; ; sp4 Refills: 0, Product Selection Permitted - Dispense 100 Glucometer Strips ( One [place] Strips ) ( One refill ) - 0 Use [facility] Glucometer and Lancets as directed; ; Refills: 0, Product Selection sp4 Permitted - GLUCOMETE - administer 1 unit SUBCUTANEOUS route every 12 hours Dispense One Glucometer sp4 with Strips; 1 unit; Refills: 0, Product Selection Permitted NIH Stroke Scale - NIH Stroke Score Date: 06/30/2024 Time: 00:12 Total Score = 0 10. Dysarthria (speech clarity - read or repeat words) - 0(Normal) 11. Extinction and Inattention (visual/tactile/auditory/spatial/personal) - 0(No abnormality) 1a. Level of Consciousness (LOC) - 0(Alert) 1b. Level of Consciousness (LOC) (Month \T\ Age) - 0(Both) 1c. LOC Commands (Open \T\ Closes Eyes/Piecer) - 0(Both) 2. Best Gaze (Lateral Gaze Paresis) - 0(Normal) 3. Visual Field Loss - 0(No visual loss) 4. Facial Palsy - 0(Normal) 5a. Left Arm: Motor (10-second hold) - 0(No drift) 5b. Right Arm: Motor (10-second hold) - 0(No drift) 6a. Left Leg: Motor (5-second hold - always test supine) - 0(No drift) 6b. Right Leg: Motor (5-second hold - always test supine) - 0(No drift) 7. Limb Ataxia (finger/nose \T\ heel/felipe - test with eyes open) - 0(Absent) 8. Sensory Loss (pinprick arms/legs/face) - 0(Normal) 9. Best Language: Aphasia (description/naming/reading) - 0(No aphasia) Initials: sp4 Signatures: Dispatcher [employer] EDMS Sandy Calderon RN RN ha1 Ernie Hyman MD MD sp4 Hong Woodward RN RN ay McDonald, Brad RN bm8 Corrections: (The following items were deleted from the chart) 06/29 23:58 23:58 CBC+H.LAB.BRZ ordered. EDMS EDMS 23:58 23:58 COMPREHENSIVE METABOLIC PANEL+C.LAB.BRZ ordered. EDMS EDMS 23:58 23:58 LIPASE+C.LAB.BRZ ordered. EDMS EDMS 23:58 23:58 Urinalysis+U.LAB.BRZ ordered. EDMS EDMS 06/30 02:53 02:52 Patient is a very pleasant 63-year-old male who woke up this morning sp4 feeling unwell and feeling primary. Patient presents here for concern of blood sugar elevation.. sp4
[2024-06-30 03:22] VITALS: TEMP 97.7
[2024-06-30 03:27] VITALS: BP 154/97; O2SAT 98
--- NOTE | 2024-07-02 11:34 | EKG ---
Test Date: 2024-06-30 Test Time: 00:12:55 Senior Stack Engineer: MONAE MEASUREMENT RESULTS: Intervals: Rate: 58 HI: 118 QRSD: 90 QT: 428 QTc: 420 [place]: P: 74 HI: 118 QRS: -31 T: -36 INTERPRETIVE STATEMENTS: Sinus bradycardia Left axis deviation Voltage criteria for left ventricular hypertrophy T wave abnormality, consider lateral ischemia Abnormal ECG Compared to ECG 06/26/2024 18:43:43 Left-axis deviation now present Left ventricular hypertrophy now present T-wave abnormality now present Sinus rhythm no longer present ST (T wave) deviation no longer present Possible ischemia still present Electronically Signed On 07-02-24 11:34:00 SQUEEZER OPERATOR by Derik Lozada
== END 2024-06-30 03:17 | disposition home or self-care (01) ==
LOC: ER 23:46
DX: E87.6 Hypokalemia (principal); R25.3 Fasciculation; E11.9 Type 2 diabetes mellitus without complications; I10 Essential (primary) hypertension; E78.00 Pure hypercholesterolemia, unspecified
CPT/HCPCS: 96361; 93005; 85025; 36415; 82947; 81003; 83690; 80053; 96360; 99284; J7030 ×2